=== PATIENT | female | born 1945 | race Caucasian/White ===

== ENCOUNTER 2018-10-04 16:10 | Inpatient (IN) | payer OTHER, MEDICARE ==
[~2018-10-04] VITALS: Ht 170.2 cm; Wt 68.0 kg
--- NOTE | 2018-10-04 16:14 | Emergency Room Report ---
History of Present Illness Present Illness HPI Patient is a 73-year-old female who presented after increased vomiting from nursing facility. Patient reportedly had multiple episodes of nonbloody emesis. Patient reports being a smoker. She has prior history of dementia. History is markedly limited by poor historian.Patient denies any fever.She denies any significant abdominal pain. Allergies: Coded Allergies: No Known Allergies (Unverified , 10/04/18) Patient History Past Medical History: see triage record Reviewed Nursing Documentation: PMH: Agreed; PSxH: Agreed Review of Systems All Other Systems: negative except mentioned in HPI Physical Exam Sp02 EP Interpretation: reviewed, normal General Appearance: normal inspection, well appearing, no apparent distress, alert, GCS 15 Head: atraumatic ENT: normal ENT inspection, hearing grossly normal, normal voice Neck: normal inspection, full range of motion, supple, no bony tend Respiratory: normal inspection, lungs clear, normal breath sounds, no respiratory distress, no retraction, no wheezing Cardiovascular #1: regular rate, rhythm, no edema Gastrointestinal: normal inspection, normal bowel sounds, non tender, soft, no guarding, no hernia Genitourinary: no CVA tenderness Musculoskeletal: normal inspection, back normal, normal range of motion Neurologic: normal inspection, alert, oriented x3, responsive, supervisor roving III-XII nml as tested, speech normal Psychiatric: normal inspection, judgement/insight normal, mood/affect normal Skin: normal inspection, normal color, no rash Procedures Incision and Drainage Incision and Drainage : Consent: Written Site: left labia Blade Size: 15 I & D Procedure: betadine prep, sterile drapes applied Wound Location: pelvis Wound Length (cm): 0 Wound Explored: clean Anesthesia: Lidocaine w/ Epi Volume Anesthetic (ccs): 3 Patient Tolerated: Well Complications: None Medical Decision Making Diagnostic Impression: Primary Impression: Vomiting Additional Impressions: Hyponatremia CHF (congestive heart failure) Pacemaker Dementia Bartholin cyst ER Course Patient presented for vomiting. Differential diagnosis include was not limited to bowel obstruction, urinary tract infection, gastroenteritis, among others. Because of complexity of patient's case laboratory testing and imaging studies were ordered. Laboratory testing showed moderate hyponatremia. Patient was started on IV fluids. CT of abdomen and pelvis showed Cardiomegaly as well as left bartholins cyst without evident appendicitis or obstruction. Patient underwent attempt at incision and drainage without any purulent drainage. Patient was discussed with Dr. Weeks for inpatient management. Labs Test 10/04/18 16:30 White Blood Count 6.1 K/UL (4.8-10.8) Red Blood Count 4.36 M/UL (4.20-5.40) Hemoglobin 13.9 G/DL (12.0-16.0) Hematocrit 37.9 % (37.0-47.0) Mean Corpuscular Volume 87 FL (80-99) Mean Corpuscular Hemoglobin 31.9 PG (27.0-31.0) Mean Corpuscular Hemoglobin Concent 36.6 G/DL (32.0-36.0) Red Cell Distribution Width 10.6 % (11.6-14.8) Platelet Count 205 K/UL (150-450) Mean Platelet Volume 5.0 FL (6.5-10.1) Neutrophils (%) (Auto) 80.1 % (45.0-75.0) Lymphocytes (%) (Auto) 10.9 % (20.0-45.0) Monocytes (%) (Auto) 7.0 % (1.0-10.0) Eosinophils (%) (Auto) 1.0 % (0.0-3.0) Basophils (%) (Auto) 1.0 % (0.0-2.0) Prothrombin Time 11.4 SEC (9.30-11.50) Prothromb Time International Ratio 1.1 (0.9-1.1) Activated Partial Thromboplast Time 25 SEC (23-33) Urine Color Yellow Urine Appearance Clear Urine pH 7 (4.5-8.0) Urine Specific [place] 1.010 (1.005-1.035) Urine Protein 1+ (NEGATIVE) Urine Glucose (UA) Negative (NEGATIVE) Urine Ketones Negative (NEGATIVE) Urine Blood 3+ (NEGATIVE) Urine Nitrite Negative (NEGATIVE) Urine Bilirubin Negative (NEGATIVE) Urine Urobilinogen Normal MG/DL (0.0-1.0) Urine Leukocyte Esterase 1+ (NEGATIVE) Urine RBC 2-4 /HPF (0 - 2) Urine WBC 0-2 /HPF (0 - 2) Urine Squamous Epithelial Cells Moderate /LPF (NONE/OCC) Urine Bacteria Few /HPF (NONE) Sodium Level 130 MMOL/L (136-145) Potassium Level 4.8 MMOL/L (3.5-5.1) Chloride Level 96 MMOL/L (98-107) Carbon Dioxide Level 25 MMOL/L (21-32) Anion Gap 9 mmol/L (5-15) Blood Urea Nitrogen 14 mg/dL (7-18) Creatinine 0.9 MG/DL (0.55-1.30) Estimat Glomerular Filtration Rate mL/min (>60) Glucose Level 116 MG/DL (74-106) Calcium Level 8.7 MG/DL (8.5-10.1) Total Bilirubin 0.4 MG/DL (0.2-1.0) Aspartate Amino Transf (AST/SGOT) 26 U/L (15-37) Alanine Aminotransferase (ALT/SGPT) 19 U/L (12-78) Alkaline Phosphatase 70 U/L (46-116) Troponin I 0.029 ng/mL (0.000-0.056) Total Protein 7.3 G/DL (6.4-8.2) Albumin 3.3 G/DL (3.4-5.0) Globulin 4.0 g/dL Albumin/Globulin Ratio 0.8 (1.0-2.7) Lipase 177 U/L (73-393) Status: improved Disposition: ADMITTED INPATIENT Condition: Giorgio Ware MD October 04, 2018 16:14
[2018-10-04] MEDS ORDERED: Isovue-300 100ml vial INJ PRN (16:15)
[2018-10-04 16:25] VITALS: BP 101/65
--- NOTE | 2018-10-04 16:25 | NUR ---
ED Nurse Note: Patient brought in to ER by ambulance from [facility] due to vomiting x2 this morning. pt aao x1-2, in pleasant mood, cooperative. skin clean and intact but pale. no vomiting at this moment. pt denied abdominal pain. abdoman soft and non distended. pt able to move and change position in bed. pt changed in to gown and put conveyor monitor on.
--- NOTE | 2018-10-04 16:30 | NUR ---
ED Nurse Note: Rash noted on both inner buttocks. picture taken and uploaded.
[2018-10-04 16:45] LABS: APPEARANCE,URINE CLEAR; BILIRUBIN, URINE NEGATIVE (NEGATIVE); GLUCOSE, URINE (UA) NEGATIVE (NEGATIVE); HEMATOCRIT 37.9 % (37.0-47.0); HEMOGLOBIN 13.9 G/DL (12.0-16.0); KETONES,URINE NEGATIVE (NEGATIVE); LEUKOCYTE ESTERASE ,URINE 1+ (NEGATIVE); LYMPHOCYTES % (AUTO) 10.9 % (20.0-45.0); MEAN CORPUSCULAR VOLUME 87 FL (80-99); NEUTROPHILS % (AUTO) 80.1 % (45.0-75.0); NITRITE,URINE NEGATIVE (NEGATIVE); PH,URINE 7 (4.5-8.0); PLATELET COUNT 205 K/UL (150-450); PROTEIN,URINE 1+ (NEGATIVE); RED BLOOD COUNT 4.36 M/UL (4.20-5.40); RED CELL DISTRIBUTION WIDTH 10.6 % (11.6-14.8); UROBILINOGEN,URINE NORMAL MG/DL (0.0-1.0); WHITE BLOOD COUNT 6.1 K/UL (4.8-10.8)
[2018-10-04 16:49] LABS: COLOR,URINE YELLOW
[2018-10-04 16:55] LABS: ANION GAP 9 mmol/L (5-15); BLOOD UREA NITROGEN 14 mg/dL (7-18); CALCIUM 8.7 MG/DL (8.5-10.1); CARBON DIOXIDE 25 MMOL/L (21-32); CHLORIDE 96 MMOL/L (98-107); CREATININE 0.9 MG/DL (0.55-1.30); POTASSIUM 4.8 MMOL/L (3.5-5.1); SODIUM 130 MMOL/L (136-145)
[2018-10-04 16:59] LABS: ALANINE AMINOTRANSFERASE 19 U/L (12-78); ALBUMIN 3.3 G/DL (3.4-5.0); ALBUMIN/GLOBULIN RATIO 0.8 (1.0-2.7); ALKALINE PHOSPHATASE 70 U/L (46-116); ASPARTATE AMINO TRANSFERASE 26 U/L (15-37); BILIRUBIN,TOTAL 0.4 MG/DL (0.2-1.0); INR 1.1 (0.9-1.1)
[2018-10-04 17:39] VITALS: BP 107/50
--- NOTE | 2018-10-04 19:04 | NUR ---
HAND-OFF: Report given to HAMMAD Coreas.
[2018-10-04] MEDS ORDERED: Lidocaine 1% 10mg/ml/Epi 0.005mg/ml 30ml vial INJ ONE (19:30)
[2018-10-04 19:45] VITALS: BP 102/68
[2018-10-04] MEDS ORDERED: Bacitracin Oint UD TOPIC ONE (19:45)
[2018-10-04] MEDS ORDERED: NEURONTIN100 MG ORAL (19:58)
[2018-10-04] MEDS ORDERED: TEGRETOL200 MG PO (19:58)
[2018-10-04] MEDS ORDERED: LEVOTHYROXINE100 MC1 PO (19:58)
[2018-10-04] MEDS ORDERED: XARELTO10 MG ORAL (19:58)
[2018-10-04] MEDS ORDERED: METOPROLOL SUCC25 MG ORAL (19:58)
[2018-10-04] MEDS ORDERED: CRANBERRY400 MG PO (19:58)
--- NOTE | 2018-10-04 20:10 | NUR ---
ER Nurse Note: Pt a&ox2, VSS, no signs of distress. Pt calm and comfortable. Skin intact; redness in biateral groin. I&D completed per ERMD; site cleaned and applied bactriacin with gauze. SLIV RT arm; patent and kerlix. Will endorse care to recieving nurse for continutiy of care.
--- NOTE | 2018-10-04 20:25 | NUR ---
ER Nurse Note: Called for report and was put on hold for over 5 mins. Will call again.
--- NOTE | 2018-10-04 20:40 | NUR ---
ER Nurse Note: Report given to HAMMAD Damon for continuity of care. Pt stable and left with all belongings.
--- NOTE | 2018-10-04 20:45 | NUR ---
NURSE NOTES: Received report from Mitesh Foote RN from ED regarding patient's transfer to TELE floor. Belongings checked and noted, head to toe assessment initiated with noted skin issue (see WCP). Patient assisted transfer from [facility] to bed by staff. AAO X2 with episodes of confusion d/t history of dementia. Kept clean, dry, and comfortable in bed. Placed on cardiac monitoring per protocol. Noted left chest PM ([place]) and pacing well. On RA with no S/S of resp distress or SOB, saturating at 95-96%. Safety and seizure precaution in place; siderails X2 up and padded, call light within reach, bed in lowest position, brakes and alarm on at all times, Suction at bedside and bed free from clutter. Needs and wants anticipated and attended. Will continue plan of care and monitor for any changes noted.
[2018-10-04 21:00] VITALS: BP 111/79
--- NOTE | 2018-10-04 22:10 | NUR ---
NURSE NOTES: Called and left message for Tariq Woodard MD regarding admit orders. Awaiting call back
--- NOTE | 2018-10-04 22:30 | NUR ---
NURSE NOTES: Received call back from primary MD. New orders carried out. Will continue to monitor
--- NOTE | 2018-10-04 22:40 | NUR ---
NURSE NOTES: 1 on 1 sitter as needed if patient tries to get out of bed, per primary MD.
[2018-10-04] MEDS ORDERED: Acetaminophen 500mg (ES) tab ORAL PRN (22:45)
[2018-10-05] VITALS: BP 94/59
--- NOTE | 2018-10-05 07:15 | NUR ---
NURSE NOTES: Received report from Nelson/RN, Patient is awake, resting on bed, No acute distress/SOB noted. IV running @ 50cc/hr on right forearm. Bed in low position, and locked. Call light within reach. Will continue plan of care.
--- NOTE | 2018-10-05 07:40 | NUR ---
HAND-OFF: Report given to Chance Oconnell RN. Patient in bed with no S/S of distress noted at this time. Endorsed plan of care
[2018-10-05 08:25] VITALS: BP 94/59
[2018-10-05 09:01] LABS: EOSINOPHILS % (AUTO) 2.9 % (0.0-3.0); HEMATOCRIT 36.5 % (37.0-47.0); HEMOGLOBIN 12.6 G/DL (12.0-16.0); LYMPHOCYTES % (AUTO) 14.9 % (20.0-45.0); MEAN CORPUSCULAR VOLUME 91 FL (80-99); MONOCYTES % (AUTO) 11.6 % (1.0-10.0); NEUTROPHILS % (AUTO) 69.6 % (45.0-75.0); PLATELET COUNT 193 K/UL (150-450); RED CELL DISTRIBUTION WIDTH 11.1 % (11.6-14.8); WHITE BLOOD COUNT 5.5 K/UL (4.8-10.8)
[2018-10-05 09:26] LABS: ALANINE AMINOTRANSFERASE 18 U/L (12-78); ALBUMIN 2.9 G/DL (3.4-5.0); ALBUMIN/GLOBULIN RATIO 0.9 (1.0-2.7); ALKALINE PHOSPHATASE 59 U/L (46-116); ANION GAP 9 mmol/L (5-15); ASPARTATE AMINO TRANSFERASE 24 U/L (15-37); BILIRUBIN,TOTAL 0.5 MG/DL (0.2-1.0); BLOOD UREA NITROGEN 11 mg/dL (7-18); CALCIUM 8.4 MG/DL (8.5-10.1); CARBON DIOXIDE 23 MMOL/L (21-32); CHLORIDE 102 MMOL/L (98-107); CREATININE 0.8 MG/DL (0.55-1.30); POTASSIUM 3.9 MMOL/L (3.5-5.1); SODIUM 134 MMOL/L (136-145)
--- NOTE | 2018-10-05 10:50 | Diagnostic Imaging Report ---
Indication: Abdominal pain Technique: Continuous helical transaxial imaging of the abdomen and pelvis was obtained from the lung bases to the pubic symphysis during intravenous contrast administration. Coronal 2-D reformats were also obtained. Study obtained in a Siemens sensation [address] Automatic Exposure Control was utilized. Total Dose length Product (DLP): 892.[address] Dose Index Volume (CTDIvol): 17.25 mGy Comparison: None Findings: Mild reticulation at the lung bases likely atelectasis. Pacemaker is present. There is generalized cardiomegaly. The aorta and other arterial structures show mild calcification. Gallbladder is not seen. The spleen and liver are unremarkable. The pancreas, kidneys and adrenal glands are unremarkable. There is no hydronephrosis. An IVC filter is present. Bowel gas pattern is nonobstructive. The appendix is not visualized. There is no free fluid identified. The left ovary appears somewhat prominent. The right ovary is not seen. There is no free fluid or free air. There is a hyperdense round focus in the left posterior vaginal region measuring 2.5 cm which may be a Bartholin's gland. IMPRESSION: No acute findings identified. Prominent left ovary for age. Consider correlation with endovaginal ultrasound. Suspected left Bartholin's gland cyst. Pacemaker Atherosclerotic disease IVC filter. [facility] has communicated the preliminary results to the Emergency Department. Their findings are largely concordant with this report. The CT scanner at [facility] is accredited by the [employer] and the scans are performed using dose optimization techniques as appropriate to a performed exam including Automatic Exposure control.
--- NOTE | 2018-10-05 10:51 | GI Initial Consult Note ---
History of Present Illness General Date patient seen: October 05, 2018 Time patient seen: 10:46 Reason for Hospitalization: Vomiting Referring physician: JUDY BLACKWELL Reason for Consultation: Vomiting, abdominal pain Present Illness HPI Patient is a 73-year-old female who presented after increased vomiting from nursing facility. Patient reportedly had multiple episodes of nonbloody emesis. Patient reports being a smoker. She has prior history of dementia. History is markedly limited by poor historian.Patient denies any fever.She denies any significant abdominal pain. GI consulted for reported abdominal pain and nausea. ROS limited, patient with history of dementia unable to provide any significant history. The patient believes she is . She denies any abdominal pain or vomiting at this time. She reported that she had some vomiting last night. Denies any hematemesis or coffee-ground. Patient unable to recall any past history of endoscopic or colonoscopy at this time. Labs reviewed; no anemia, no leukocytosis, no transaminitis. Home Meds Reported Medications Cranberry (CRANBERRY) 400 Mg Capsule, 450 MG PO, CAP 10/04/18 Carbamazepine (TEGRETOL*) 200 Mg Tablet, 600 MG PO DAILY, TAB 10/04/18 Metoprolol Succinate* (METOPROLOL SUCCINATE*) 25 Mg Tab.er.24h, 25 MG ORAL DAILY , TAB 10/04/18 Rivaroxaban (XARELTO*) 10 Mg Tablet, 15 MG ORAL DAILY, #30 TAB 0 Refills 10/04/18 Gabapentin* (NEURONTIN*) 100 Mg Capsule, 100 MG ORAL THREE TIMES A DAY, #15 CAP 0 Refills 10/04/18 Levothyroxine Sodium* (LEVOTHYROXINE SODIUM*) 100 Mcg Vial, 50 MCG IV DAILY, VIAL 10/04/18 Med list reviewed/reconciled: Yes Allergies: Coded Allergies: No Known Allergies (Unverified , 10/04/18) Patient History Limited by: medical condition History Provided By: Patient, Medical Record PMH Narrative Past Medical History: see triage record Reviewed Nursing Documentation: PMH: Agreed; PSxH: Agreed ER ROS - General Review of Systems All Other Systems: negative except mentioned in HPI Social History: Denies: smoking, alcohol use, drug use, other Physical Exam Vital Signs Date Time Temp Pulse Resp B/P (MAP) Pulse Ox O2 Delivery O2 Flow Rate FiO2 10/04/18 16:11 97.3 82 14 96 Room Air 5/19/19 16:25 101/65 Sp02 EP Interpretation: reviewed, normal Labs Laboratory Tests Test 10/04/18 16:30 10/05/18 08:26 White Blood Count 6.1 K/UL (4.8-10.8) 5.5 K/UL (4.8-10.8) Red Blood Count 4.36 M/UL (4.20-5.40) 4.00 M/UL (4.20-5.40) L Hemoglobin 13.9 G/DL (12.0-16.0) 12.6 G/DL (12.0-16.0) Hematocrit 37.9 % (37.0-47.0) 36.5 % (37.0-47.0) L Mean Corpuscular Volume 87 FL (80-99) 91 FL (80-99) Mean Corpuscular Hemoglobin 31.9 PG (27.0-31.0) H 31.5 PG (27.0-31.0) H Mean Corpuscular Hemoglobin Concent 36.6 G/DL (32.0-36.0) H 34.5 G/DL (32.0-36.0) Red Cell Distribution Width 10.6 % (11.6-14.8) L 11.1 % (11.6-14.8) L Platelet Count 205 K/UL (150-450) 193 K/UL (150-450) Mean Platelet Volume 5.0 FL (6.5-10.1) L 5.7 FL (6.5-10.1) L Neutrophils (%) (Auto) 80.1 % (45.0-75.0) H 69.6 % (45.0-75.0) Lymphocytes (%) (Auto) 10.9 % (20.0-45.0) L 14.9 % (20.0-45.0) L Monocytes (%) (Auto) 7.0 % (1.0-10.0) 11.6 % (1.0-10.0) H Eosinophils (%) (Auto) 1.0 % (0.0-3.0) 2.9 % (0.0-3.0) Basophils (%) (Auto) 1.0 % (0.0-2.0) 1.0 % (0.0-2.0) Prothrombin Time 11.4 SEC (9.30-11.50) Prothromb Time International Ratio 1.1 (0.9-1.1) Activated Partial Thromboplast Time 25 SEC (23-33) Urine Color Yellow Urine Appearance Clear Urine pH 7 (4.5-8.0) Urine Specific [place] 1.010 (1.005-1.035) Urine Protein 1+ (NEGATIVE) H Urine Glucose (UA) Negative (NEGATIVE) Urine Ketones Negative (NEGATIVE) Urine Blood 3+ (NEGATIVE) H Urine Nitrite Negative (NEGATIVE) Urine Bilirubin Negative (NEGATIVE) Urine Urobilinogen Normal MG/DL (0.0-1.0) Urine Leukocyte Esterase 1+ (NEGATIVE) H Urine RBC 2-4 /HPF (0 - 2) H Urine WBC 0-2 /HPF (0 - 2) Urine Squamous Epithelial Cells Moderate /LPF (NONE/OCC) H Urine Bacteria Few /HPF (NONE) Sodium Level 130 MMOL/L (136-145) L 134 MMOL/L (136-145) L Potassium Level 4.8 MMOL/L (3.5-5.1) 3.9 MMOL/L (3.5-5.1) Chloride Level 96 MMOL/L (98-107) L 102 MMOL/L (98-107) Carbon Dioxide Level 25 MMOL/L (21-32) 23 MMOL/L (21-32) Anion Gap 9 mmol/L (5-15) 9 mmol/L (5-15) Blood Urea Nitrogen 14 mg/dL (7-18) 11 mg/dL (7-18) Creatinine 0.9 MG/DL (0.55-1.30) 0.8 MG/DL (0.55-1.30) Estimat Glomerular Filtration Rate mL/min (>60) mL/min (>60) Glucose Level 116 MG/DL (74-106) H 89 MG/DL (74-106) Calcium Level 8.7 MG/DL (8.5-10.1) 8.4 MG/DL (8.5-10.1) L Total Bilirubin 0.4 MG/DL (0.2-1.0) 0.5 MG/DL (0.2-1.0) Aspartate Amino Transf (AST/SGOT) 26 U/L (15-37) 24 U/L (15-37) Alanine Aminotransferase (ALT/SGPT) 19 U/L (12-78) 18 U/L (12-78) Alkaline Phosphatase 70 U/L (46-116) 59 U/L (46-116) Troponin I 0.029 ng/mL (0.000-0.056) Total Protein 7.3 G/DL (6.4-8.2) 6.3 G/DL (6.4-8.2) L Albumin 3.3 G/DL (3.4-5.0) L 2.9 G/DL (3.4-5.0) L Globulin 4.0 g/dL 3.4 g/dL Albumin/Globulin Ratio 0.8 (1.0-2.7) L 0.9 (1.0-2.7) L Lipase 177 U/L (73-393) General Appearance: well appearing, no apparent distress, alert Head: normocephalic EENT: PERRL/EOMI, normal ENT inspection Neck: supple Respiratory: normal breath sounds, no respiratory distress Cardiovascular: normal rate Gastrointestinal: normal inspection, non tender, soft, normal bowel sounds, non -distended Rectal: deferred Genitourinary: no CVA tenderness Musculoskeletal: normal inspection, back normal Neurologic: normal inspection, alert, oriented x3, responsive Psychiatric: normal inspection, judgement/insight normal, memory normal Skin: normal inspection, normal color, no rash, warm/dry, palpation normal, well hydrated Lymphatic: normal inspection, no adenopathy Current Medications Current Medications Medications (Trade) Dose Ordered Sig/Charles Route PRN Reason Start Time Stop Time Status Last Admin Dose Admin Acetaminophen (Tylenol) 500 mg Q4H PRN ORAL Mild Pain/Temp > 100.5 10/04/18 22:45 11/03/18 22:44 Ondansetron HCl (Zofran) 4 mg Q6H PRN IVP Nausea & Vomiting 10/04/18 22:45 11/03/18 22:44 Sodium Chloride 1,000 ml @ 50 mls/hr Q20H IV 10/04/18 22:30 11/03/18 22:29 10/04/18 23:18 GI: Plan Problems: (1) Vomiting (2) Pacemaker (3) Hyponatremia (4) CHF (congestive heart failure) (5) Dementia (6) Dehydration Plan neg CT Symptomatic treatment at this time Advance diet as tolerated Zofran as needed, Reglan for persistent vomiting PPI Electrolyte correction GI procedures only if emergent Discussed with Dr. Baez. Thank you for this patient referral, we will follow. The patient was seen and examined at bedside and all new and available data was reviewed in the patients chart. I agree with the above findings, impression and plan. (Patient seen earlier today. Signature stamp does not reflect patient encounter time.). - MD Sofia LoydPage HospitalJakob CONTRACT WRITER October 05, 2018 10:51
[2018-10-05 12:00] VITALS: BP 103/57
--- NOTE | 2018-10-05 12:05 | Cardiac Electrophysiology PN ---
Subjective Subjective [id number] Objective Last 24 Hour Vital Signs Date Time Temp Pulse Resp B/P (MAP) Pulse Ox O2 Delivery O2 Flow Rate FiO2 10/05/18 08:25 97.0 98 19 94/59 (71) 98 10/05/18 04:00 77 10/05/18 00:00 97.0 98 19 94/59 (71) 98 10/05/18 00:00 90 10/04/18 21:12 Room Air 10/04/18 21:00 96.9 93 18 111/79 (90) 98 10/04/18 21:00 89 10/04/18 20:40 97.5 88 16 102/68 100 Room Air 10/04/18 19:45 97.5 88 16 102/68 100 Room Air 10/04/18 17:39 97.7 80 17 107/50 100 Room Air 10/04/18 16:25 97.7 71 17 101/65 98 Room Air 10/04/18 16:25 71 14 Room Air 10/04/18 16:11 97.3 82 14 96 Room Air Intake and Output 10/04/18 10/05/18 19:00 07:00 Intake Total 500 ml 390 ml Balance 500 ml 390 ml Intake Oral 0 ml 100 ml IV Total 500 ml 290 ml # Voids 1 2 Laboratory Tests Test 10/04/18 16:30 10/05/18 08:26 White Blood Count 6.1 K/UL (4.8-10.8) 5.5 K/UL (4.8-10.8) Red Blood Count 4.36 M/UL (4.20-5.40) 4.00 M/UL (4.20-5.40) L Hemoglobin 13.9 G/DL (12.0-16.0) 12.6 G/DL (12.0-16.0) Hematocrit 37.9 % (37.0-47.0) 36.5 % (37.0-47.0) L Mean Corpuscular Volume 87 FL (80-99) 91 FL (80-99) Mean Corpuscular Hemoglobin 31.9 PG (27.0-31.0) H 31.5 PG (27.0-31.0) H Mean Corpuscular Hemoglobin Concent 36.6 G/DL (32.0-36.0) H 34.5 G/DL (32.0-36.0) Red Cell Distribution Width 10.6 % (11.6-14.8) L 11.1 % (11.6-14.8) L Platelet Count 205 K/UL (150-450) 193 K/UL (150-450) Mean Platelet Volume 5.0 FL (6.5-10.1) L 5.7 FL (6.5-10.1) L Neutrophils (%) (Auto) 80.1 % (45.0-75.0) H 69.6 % (45.0-75.0) Lymphocytes (%) (Auto) 10.9 % (20.0-45.0) L 14.9 % (20.0-45.0) L Monocytes (%) (Auto) 7.0 % (1.0-10.0) 11.6 % (1.0-10.0) H Eosinophils (%) (Auto) 1.0 % (0.0-3.0) 2.9 % (0.0-3.0) Basophils (%) (Auto) 1.0 % (0.0-2.0) 1.0 % (0.0-2.0) Prothrombin Time 11.4 SEC (9.30-11.50) Prothromb Time International Ratio 1.1 (0.9-1.1) Activated Partial Thromboplast Time 25 SEC (23-33) Urine Color Yellow Urine Appearance Clear Urine pH 7 (4.5-8.0) Urine Specific [place] 1.010 (1.005-1.035) Urine Protein 1+ (NEGATIVE) H Urine Glucose (UA) Negative (NEGATIVE) Urine Ketones Negative (NEGATIVE) Urine Blood 3+ (NEGATIVE) H Urine Nitrite Negative (NEGATIVE) Urine Bilirubin Negative (NEGATIVE) Urine Urobilinogen Normal MG/DL (0.0-1.0) Urine Leukocyte Esterase 1+ (NEGATIVE) H Urine RBC 2-4 /HPF (0 - 2) H Urine WBC 0-2 /HPF (0 - 2) Urine Squamous Epithelial Cells Moderate /LPF (NONE/OCC) H Urine Bacteria Few /HPF (NONE) Sodium Level 130 MMOL/L (136-145) L 134 MMOL/L (136-145) L Potassium Level 4.8 MMOL/L (3.5-5.1) 3.9 MMOL/L (3.5-5.1) Chloride Level 96 MMOL/L (98-107) L 102 MMOL/L (98-107) Carbon Dioxide Level 25 MMOL/L (21-32) 23 MMOL/L (21-32) Anion Gap 9 mmol/L (5-15) 9 mmol/L (5-15) Blood Urea Nitrogen 14 mg/dL (7-18) 11 mg/dL (7-18) Creatinine 0.9 MG/DL (0.55-1.30) 0.8 MG/DL (0.55-1.30) Estimat Glomerular Filtration Rate mL/min (>60) mL/min (>60) Glucose Level 116 MG/DL (74-106) H 89 MG/DL (74-106) Calcium Level 8.7 MG/DL (8.5-10.1) 8.4 MG/DL (8.5-10.1) L Total Bilirubin 0.4 MG/DL (0.2-1.0) 0.5 MG/DL (0.2-1.0) Aspartate Amino Transf (AST/SGOT) 26 U/L (15-37) 24 U/L (15-37) Alanine Aminotransferase (ALT/SGPT) 19 U/L (12-78) 18 U/L (12-78) Alkaline Phosphatase 70 U/L (46-116) 59 U/L (46-116) Troponin I 0.029 ng/mL (0.000-0.056) Total Protein 7.3 G/DL (6.4-8.2) 6.3 G/DL (6.4-8.2) L Albumin 3.3 G/DL (3.4-5.0) L 2.9 G/DL (3.4-5.0) L Globulin 4.0 g/dL 3.4 g/dL Albumin/Globulin Ratio 0.8 (1.0-2.7) L 0.9 (1.0-2.7) L Lipase 177 U/L (73-393) Tomás Negrete MD October 05, 2018 12:05
--- NOTE | 2018-10-05 13:32 | NUR ---
CASE MANAGEMENT:REVIEW 73 YR OLD FEMALE BIBA FROM [facility] CC: VOMITING SI: ABDOMINAL PAIN. VOMITING. CHF. HYPONATREMIA 97.3 82 14 107/68 96% ON RA NA-130 GLUCOSE+116 IS: 500CC NS BOLUS IV ZOFRAN CT ABDOMEN : TO TELEMETRY UNIT DCP: RETURN TO [facility]
--- NOTE | 2018-10-05 13:57 | Consultation ---
History of Present Illness General Chief Complaint: Vomiting Referring physician: JUDY WOODARD Reason for Consultation: Vomiting, abdominal pain Present Illness Allergies: Coded Allergies: No Known Allergies (Unverified , 10/04/18) Medication History Scheduled Carbamazepine (Tegretol*), 600 MG PO DAILY, (Reported) Gabapentin* (Neurontin*), 100 MG ORAL THREE TIMES A DAY, (Reported) Levothyroxine Sodium* (Levothyroxine Sodium*), 50 MCG IV DAILY, (Reported) Metoprolol Succinate* (Metoprolol Succinate*), 25 MG ORAL DAILY, (Reported) Rivaroxaban (Xarelto*), 15 MG ORAL DAILY, (Reported) Miscellaneous Medications Cranberry (Cranberry), 450 MG PO, (Reported) Patient History Healthcare decision maker N Resuscitation status Full Code Advanced Directive on File Physical Exam Last 24 Hour Vital Signs Date Time Temp Pulse Resp B/P (MAP) Pulse Ox O2 Delivery O2 Flow Rate FiO2 10/05/18 08:25 97.0 98 94/59 (71) 98 10/05/18 04:00 77 10/05/18 00:00 97.0 98 94/59 (71) 98 10/05/18 00:00 90 10/04/18 21:12 Room Air 10/04/18 21:00 96.9 93 18 111/79 (90) 98 10/04/18 21:00 89 10/04/18 20:40 97.5 88 16 102/68 100 Room Air 10/04/18 19:45 97.5 88 16 102/68 100 Room Air 10/04/18 17:39 97.7 80 17 107/50 100 Room Air 10/04/18 16:25 97.7 71 17 101/65 98 Room Air 10/04/18 16:25 71 14 Room Air 10/04/18 16:11 97.3 82 14 96 Room Air Intake and Output 10/04/18 10/05/18 19:00 07:00 Intake Total 500 ml 390 ml Balance 500 ml 390 ml Intake Oral 0 ml 100 ml IV Total 500 ml 290 ml # Voids 1 2 Laboratory Tests Test 10/04/18 16:30 10/05/18 08:26 White Blood Count 6.1 K/UL (4.8-10.8) 5.5 K/UL (4.8-10.8) Red Blood Count 4.36 M/UL (4.20-5.40) 4.00 M/UL (4.20-5.40) L Hemoglobin 13.9 G/DL (12.0-16.0) 12.6 G/DL (12.0-16.0) Hematocrit 37.9 % (37.0-47.0) 36.5 % (37.0-47.0) L Mean Corpuscular Volume 87 FL (80-99) 91 FL (80-99) Mean Corpuscular Hemoglobin 31.9 PG (27.0-31.0) H 31.5 PG (27.0-31.0) H Mean Corpuscular Hemoglobin Concent 36.6 G/DL (32.0-36.0) H 34.5 G/DL (32.0-36.0) Red Cell Distribution Width 10.6 % (11.6-14.8) L 11.1 % (11.6-14.8) L Platelet Count 205 K/UL (150-450) 193 K/UL (150-450) Mean Platelet Volume 5.0 FL (6.5-10.1) L 5.7 FL (6.5-10.1) L Neutrophils (%) (Auto) 80.1 % (45.0-75.0) H 69.6 % (45.0-75.0) Lymphocytes (%) (Auto) 10.9 % (20.0-45.0) L 14.9 % (20.0-45.0) L Monocytes (%) (Auto) 7.0 % (1.0-10.0) 11.6 % (1.0-10.0) H Eosinophils (%) (Auto) 1.0 % (0.0-3.0) 2.9 % (0.0-3.0) Basophils (%) (Auto) 1.0 % (0.0-2.0) 1.0 % (0.0-2.0) Prothrombin Time 11.4 SEC (9.30-11.50) Prothromb Time International Ratio 1.1 (0.9-1.1) Activated Partial Thromboplast Time 25 SEC (23-33) Urine Color Yellow Urine Appearance Clear Urine pH 7 (4.5-8.0) Urine Specific Scammon 1.010 (1.005-1.035) Urine Protein 1+ (NEGATIVE) H Urine Glucose (UA) Negative (NEGATIVE) Urine Ketones Negative (NEGATIVE) Urine Blood 3+ (NEGATIVE) H Urine Nitrite Negative (NEGATIVE) Urine Bilirubin Negative (NEGATIVE) Urine Urobilinogen Normal MG/DL (0.0-1.0) Urine Leukocyte Esterase 1+ (NEGATIVE) H Urine RBC 2-4 /HPF (0 - 2) H Urine WBC 0-2 /HPF (0 - 2) Urine Squamous Epithelial Cells Moderate /LPF (NONE/OCC) H Urine Bacteria Few /HPF (NONE) Sodium Level 130 MMOL/L (136-145) L 134 MMOL/L (136-145) L Potassium Level 4.8 MMOL/L (3.5-5.1) 3.9 MMOL/L (3.5-5.1) Chloride Level 96 MMOL/L (98-107) L 102 MMOL/L (98-107) Carbon Dioxide Level 25 MMOL/L (21-32) 23 MMOL/L (21-32) Anion Gap 9 mmol/L (5-15) 9 mmol/L (5-15) Blood Urea Nitrogen 14 mg/dL (7-18) 11 mg/dL (7-18) Creatinine 0.9 MG/DL (0.55-1.30) 0.8 MG/DL (0.55-1.30) Estimat Glomerular Filtration Rate mL/min (>60) mL/min (>60) Glucose Level 116 MG/DL (74-106) H 89 MG/DL (74-106) Calcium Level 8.7 MG/DL (8.5-10.1) 8.4 MG/DL (8.5-10.1) L Total Bilirubin 0.4 MG/DL (0.2-1.0) 0.5 MG/DL (0.2-1.0) Aspartate Amino Transf (AST/SGOT) 26 U/L (15-37) 24 U/L (15-37) Alanine Aminotransferase (ALT/SGPT) 19 U/L (12-78) 18 U/L (12-78) Alkaline Phosphatase 70 U/L (46-116) 59 U/L (46-116) Troponin I 0.029 ng/mL (0.000-0.056) Total Protein 7.3 G/DL (6.4-8.2) 6.3 G/DL (6.4-8.2) L Albumin 3.3 G/DL (3.4-5.0) L 2.9 G/DL (3.4-5.0) L Globulin 4.0 g/dL 3.4 g/dL Albumin/Globulin Ratio 0.8 (1.0-2.7) L 0.9 (1.0-2.7) L Lipase 177 U/L (73-393) Height (Feet): 5 Height (Inches): 7.00 Weight (Pounds): 152 Medications Current Medications Medications (Trade) Dose Ordered Sig/Charles Route PRN Reason Start Time Stop Time Status Last Admin Dose Admin Acetaminophen (Tylenol) 500 mg Q4H PRN ORAL Mild Pain/Temp > 100.5 10/04/18 22:45 11/03/18 22:44 Ondansetron HCl (Zofran) 4 mg Q6H PRN IVP Nausea & Vomiting 10/04/18 22:45 11/03/18 22:44 Sodium Chloride 1,000 ml @ 50 mls/hr Q20H IV 10/04/18 22:30 11/03/18 22:29 10/04/18 23:18 Assessment/Plan Assessment/Plan: Hematology Consultation RFC: IVC Filter, and gi bleed REQ MD: Judy Woodard DOS: 10/05/18 ID Patient is a 73-year-old female who presented after increased vomiting from nursing facility. Patient reportedly had multiple episodes of nonbloody emesis. Patient reports being a smoker. She has prior history of dementia. History is markedly limited by poor historian.Patient denies any fever.She denies any significant abdominal pain. GI consulted for reported abdominal pain and nausea. ROS limited, patient with history of dementia unable to provide any significant history. The patient believes she is . She denies any abdominal pain or vomiting at this time. She reported that she had some vomiting last night. Denies any hematemesis or coffee-ground. Patient unable to recall any past history of endoscopic or colonoscopy at this time. Labs reviewed; no anemia, no leukocytosis, no transaminitis. She was noted to have potential gi bleeding and cards consulted as well Home Meds Reported Medications Cranberry (CRANBERRY) 400 Mg Capsule, 450 MG PO, CAP 10/04/18 Carbamazepine (TEGRETOL*) 200 Mg Tablet, 600 MG PO DAILY, TAB 10/04/18 Metoprolol Succinate* (METOPROLOL SUCCINATE*) 25 Mg Tab.er.24h, 25 MG ORAL DAILY , TAB 10/04/18 Rivaroxaban (XARELTO*) 10 Mg Tablet, 15 MG ORAL DAILY, #30 TAB 0 Refills 10/04/18 Gabapentin* (NEURONTIN*) 100 Mg Capsule, 100 MG ORAL THREE TIMES A DAY, #15 CAP 0 Refills 10/04/18 Levothyroxine Sodium* (LEVOTHYROXINE SODIUM*) 100 Mcg Vial, 50 MCG IV DAILY, VIAL 10/04/18 Med list reviewed/reconciled: Yes Allergies: Coded Allergies: No Known Allergies (Unverified , 10/04/18) Limited by: medical condition History Provided By: Patient, Medical Record PMH Narrative Past Medical History: see triage record Reviewed Nursing Documentation: PMH: Agreed; PSxH: Agreed Review of Systems: negative except mentioned in HPI Social History: Denies: smoking, alcohol use, drug use, othe PE Vital Signs Date Time Temp Pulse Resp B/P (MAP) Pulse Ox O2 Delivery O2 Flow Rate FiO2 10/04/18 16:11 97.3 82 14 96 Room Air 10/04/18 16:25 101/65 Sp02 EP Interpretation: reviewed, normal Labs Laboratory Tests Test 10/04/18 16:30 10/05/18 08:26 White Blood Count 6.1 K/UL (4.8-10.8) 5.5 K/UL (4.8-10.8) Red Blood Count 4.36 M/UL (4.20-5.40) 4.00 M/UL (4.20-5.40) L Hemoglobin 13.9 G/DL (12.0-16.0) 12.6 G/DL (12.0-16.0) Hematocrit 37.9 % (37.0-47.0) 36.5 % (37.0-47.0) L Mean Corpuscular Volume 87 FL (80-99) 91 FL (80-99) Mean Corpuscular Hemoglobin 31.9 PG (27.0-31.0) H 31.5 PG (27.0-31.0) H Mean Corpuscular Hemoglobin Concent 36.6 G/DL (32.0-36.0) H 34.5 G/DL (32.0-36.0) Red Cell Distribution Width 10.6 % (11.6-14.8) L 11.1 % (11.6-14.8) L Platelet Count 205 K/UL (150-450) 193 K/UL (150-450) Mean Platelet Volume 5.0 FL (6.5-10.1) L 5.7 FL (6.5-10.1) L Neutrophils (%) (Auto) 80.1 % (45.0-75.0) H 69.6 % (45.0-75.0) Lymphocytes (%) (Auto) 10.9 % (20.0-45.0) L 14.9 % (20.0-45.0) L Monocytes (%) (Auto) 7.0 % (1.0-10.0) 11.6 % (1.0-10.0) H Eosinophils (%) (Auto) 1.0 % (0.0-3.0) 2.9 % (0.0-3.0) Basophils (%) (Auto) 1.0 % (0.0-2.0) 1.0 % (0.0-2.0) Prothrombin Time 11.4 SEC (9.30-11.50) Prothromb Time International Ratio 1.1 (0.9-1.1) Activated Partial Thromboplast Time 25 SEC (23-33) Urine Color Yellow Urine Appearance Clear Urine pH 7 (4.5-8.0) Urine Specific Scammon 1.010 (1.005-1.035) Urine Protein 1+ (NEGATIVE) H Urine Glucose (UA) Negative (NEGATIVE) Urine Ketones Negative (NEGATIVE) Urine Blood 3+ (NEGATIVE) H Urine Nitrite Negative (NEGATIVE) Urine Bilirubin Negative (NEGATIVE) Urine Urobilinogen Normal MG/DL (0.0-1.0) Urine Leukocyte Esterase 1+ (NEGATIVE) H Urine RBC 2-4 /HPF (0 - 2) H Urine WBC 0-2 /HPF (0 - 2) Urine Squamous Epithelial Cells Moderate /LPF (NONE/OCC) H Urine Bacteria Few /HPF (NONE) Sodium Level 130 MMOL/L (136-145) L 134 MMOL/L (136-145) L Potassium Level 4.8 MMOL/L (3.5-5.1) 3.9 MMOL/L (3.5-5.1) Chloride Level 96 MMOL/L (98-107) L 102 MMOL/L (98-107) Carbon Dioxide Level 25 MMOL/L (21-32) 23 MMOL/L (21-32) Anion Gap 9 mmol/L (5-15) 9 mmol/L (5-15) Blood Urea Nitrogen 14 mg/dL (7-18) 11 mg/dL (7-18) Creatinine 0.9 MG/DL (0.55-1.30) 0.8 MG/DL (0.55-1.30) Estimat Glomerular Filtration Rate mL/min (>60) mL/min (>60) Glucose Level 116 MG/DL (74-106) H 89 MG/DL (74-106) Calcium Level 8.7 MG/DL (8.5-10.1) 8.4 MG/DL (8.5-10.1) L Total Bilirubin 0.4 MG/DL (0.2-1.0) 0.5 MG/DL (0.2-1.0) Aspartate Amino Transf (AST/SGOT) 26 U/L (15-37) 24 U/L (15-37) Alanine Aminotransferase (ALT/SGPT) 19 U/L (12-78) 18 U/L (12-78) Alkaline Phosphatase 70 U/L (46-116) 59 U/L (46-116) Troponin I 0.029 ng/mL (0.000-0.056) Total Protein 7.3 G/DL (6.4-8.2) 6.3 G/DL (6.4-8.2) L Albumin 3.3 G/DL (3.4-5.0) L 2.9 G/DL (3.4-5.0) L Globulin 4.0 g/dL 3.4 g/dL Albumin/Globulin Ratio 0.8 (1.0-2.7) L 0.9 (1.0-2.7) L Lipase 177 U/L (73-393) General Appearance: well appearing, no apparent distress, alert Head: normocephalic EENT: PERRL/EOMI, normal ENT inspection Neck: supple Respiratory: normal breath sounds, no respiratory distress Cardiovascular: normal rate Gastrointestinal: normal inspection, non tender, soft, normal bowel sounds, non -distended Rectal: deferred Genitourinary: no CVA tenderness Musculoskeletal: normal inspection, back normal Neurologic: normal inspection, alert, oriented x3, responsive Psychiatric: normal inspection, judgement/insight normal, memory normal Skin: normal inspection, normal color, no rash, warm/dry Lymphatic: normal inspection, no adenopathy Current Medications Current Medications Medications (Trade) Dose Ordered Sig/Charles Route PRN Reason Start Time Stop Time Status Last Admin Dose Admin Acetaminophen (Tylenol) 500 mg Q4H PRN ORAL Mild Pain/Temp > 100.5 10/04/18 22:45 11/03/18 22:44 Ondansetron HCl (Zofran) 4 mg Q6H PRN IVP Nausea & Vomiting 10/04/18 22:45 11/03/18 22:44 Sodium Chloride 1,000 ml @ 50 mls/hr Q20H IV 10/04/18 22:30 11/03/18 22:29 10/04/18 23:18 Assessment and Recs: # DVT of the lower legs s/p IVC filter, currently at home was on xarelto --> PT/INR is wnl, continue to monitor if any procedure initiaated --> duplex re-ordered to see if has resolution of dvt --> when ready for dc, consider restart xarelto # Anemia of chronic disease due to underlying chronic medical issues --> Epogen or iron at this time is not particularly indicated --> Medications have been reviewed --> low threshold for gi evaluation in case has occult + # Nasuea and Vomiting as per Gi --> continue to trend, zofran prn basis --> ct was neg # Pacemaker --> appreciate cards recs, interr as needed # Hyponatremia --> as per renal # CHF (congestive heart failure) # Dementia # Dehydration The timing of this note does not necessarily reflect the time of the patient was seen. Greatly appreciate consultation! Guido Hoover MD October 05, 2018 13:57
--- NOTE | 2018-10-05 14:42 | Consultation ---
Consult Note Consult Note I was asked to eval for low Na Patient is a 73-year-old female who presented after increased vomiting from nursing facility. Patient reportedly had multiple episodes of nonbloody emesis. Patient reports being a smoker. She has prior history of dementia. History is markedly limited by poor historian.Patient denies any fever.She denies any significant abdominal pain. Allergies: Coded Allergies: No Known Allergies (Unverified , 10/04/18) interviewed examined data reviewed . Assessment/Plan Hyponatremia: - depletional due to vomiting? improved with Saline - CHF CHF (congestive heart failure) Pacemaker Dementia HypoThyroid check cortisol level 2D echo TSH check slow hydrate monitor lytes per consultants Kerwin Womack MD October 05, 2018 14:42
[2018-10-05 16:00] VITALS: BP 81/59
--- NOTE | 2018-10-05 16:30 | Consultation ---
DATE OF CONSULTATION: 10/05/2018 CARDIAC ELECTROPHYSIOLOGY CONSULTATION CONSULTING PHYSICIAN: Tomás Negrete M.D. REFERRING PHYSICIAN: Jose Woodard M.D. REASON FOR CONSULTATION: Evaluation of patient with atrial fibrillation and pacemaker. HISTORY OF PRESENT ILLNESS: The patient is a 73-year-old lady who was recently at [facility] with history of , atrial fibrillation, history of pacemaker, hypothyroidism, organic brain syndrome, and seizure disorder with last admission at [facility] on September 10, 2018 for a fall. The patient was brought to the emergency room for nonbloody emesis from the ER. At the time of my evaluation, the patient is pleasantly confused. Denies any chest pain or shortness of breath. REVIEW OF SYSTEMS: Negative other than what was mentioned in history of present illness. PAST MEDICAL HISTORY: As mentioned above. FAMILY HISTORY: Noncontributory. SOCIAL HISTORY: She lives in [facility]. Does not smoke or drink alcohol MEDICATIONS: As an outpatient include Xarelto, metoprolol, lisinopril, Levoxyl, gabapentin, and Tegretol. PHYSICAL EXAMINATION: VITAL SIGNS: Blood pressure 94/59, pulse 98, respirations 18, and temperature 97. HEAD AND NECK: No JVD. LUNGS: Clear. CARDIOVASCULAR: S1 and S2 with no gallop. 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 ABDOMEN: Soft. EXTREMITIES: No pitting edema. LABORATORY AND DIAGNOSTIC DATA: His EKG shows atrial fibrillation, rate of 83, nonspecific ST-T wave abnormalities. Laboratory, white count 5.5, hematocrit 12.6, hematocrit 36.5, and platelet count 193. Sodium 134, potassium 3.9, BUN of 11, creatinine 0.8, and glucose of 89. Troponin is negative. Urinalysis showed moderate blood and positive leukocyte esterase. ASSESSMENT AND PLAN: 1. Atrial fibrillation. The rate is currently controlled. Keep off beta-les in view of blood pressure in the 80s and 90s. The patient is off anticoagulation at this time in view of 3+ hematuria, but eventually needs to be resumed. 2. Status post pacemaker. We will try to find the brand of the pacemaker and interrogate it for further evaluation. 3. Hyponatremia. 4. History of falls. 5. Dementia. 6. Seizure. Thank you very much for allowing me to participate in the care of this patient. Please do not hesitate to contact me for any questions regarding my evaluation. Sincerely, Tomás Negrete M.D. DR: Ann JOB#: [id number] CC:
--- NOTE | 2018-10-05 19:28 | NUR ---
NURSE NOTES: Received patient from Andra RN. Patient is awake, talkative, neuro x2-x3. Patient is on room air tolerating well showing no signs of distress. IV site is Right Forearm 20g running Normal Saline at 50cc/hr. Bed is locked, placed in lowest position, side rails up x3, call light within reach. Will continue to monitor.
--- NOTE | 2018-10-05 19:30 | NUR ---
HAND-OFF: Report given to Ambika/HAMMAD, Patient in stable condition. Endorsed plan of care.
[2018-10-05 20:00] VITALS: BP 122/68
[2018-10-06] VITALS: BP 112/62
[2018-10-06 04:00] VITALS: BP 108/59
--- NOTE | 2018-10-06 07:23 | NUR ---
HAND-OFF: Report given to Jaquan CUEVA. Patient is awake and showing no signs of distress.
--- NOTE | 2018-10-06 07:35 | NUR ---
NURSE NOTES: Pt in bed in low position, bed alarm on, pt is able to ambulate to restroom with assist, pt appears to be confused but Ox2 (signs of mental depletion), rails padded, pt denies pain, no s/s of distress or sob.
[2018-10-06 08:00] VITALS: BP 105/88
--- NOTE | 2018-10-06 09:27 | GI Progress Note ---
Assessment/Plan Problems: (1) Dehydration ICD Codes: E86.0 - Dehydration SNOMED: 99369405 (2) Vomiting ICD Codes: R11.10 - Vomiting, unspecified SNOMED: 354922688 (3) Hyponatremia ICD Codes: E87.1 - Hypo-osmolality and hyponatremia SNOMED: 54053234 (4) Dementia ICD Codes: F03.90 - Unspecified dementia without behavioral disturbance SNOMED: 33032030 (5) Bartholin cyst ICD Codes: N75.0 - Cyst of Bartholin's gland SNOMED: 59799390 Status: stable Status Narrative Discussed with Dr. Baez Assessment/Plan neg CT No recurrent vomiting Symptomatic treatment at this time Advance diet as tolerated, mech soft Zofran as needed, Reglan for persistent vomiting PPI Electrolyte correction GI procedures only if emergent Follow-up psych recommendations The patient was seen and examined at bedside and all new and available data was reviewed in the patients chart. I agree with the above findings, impression and plan. (Patient seen earlier today. Signature stamp does not reflect patient encounter time.). - Kvng Baez MD Subjective Gastrointestinal/Abdominal: Reports: no symptoms Subjective Denies any abdominal pain Denies any nausea vomiting or diarrhea Objective Last 24 Hour Vital Signs Date Time Temp Pulse Resp B/P (MAP) Pulse Ox O2 Delivery O2 Flow Rate FiO2 10/06/18 08:00 96.9 85 20 105/88 (94) 97 10/06/18 07:50 Room Air 10/06/18 04:00 98.3 79 16 108/59 (75) 99 10/06/18 03:25 88 10/06/18 00:00 97.6 94 16 112/62 (79) 100 10/05/18 23:37 84 10/05/18 21:00 Room Air 10/05/18 20:00 97.9 88 16 122/68 (86) 98 10/05/18 19:31 77 10/05/18 16:00 69 10/05/18 16:00 97.0 67 21 81/59 (66) 95 10/05/18 12:00 97.2 68 21 103/57 (72) 97 10/05/18 12:00 71 Intake and Output 10/05/18 10/06/18 19:00 07:00 Intake Total 50 ml Balance 50 ml Intake Oral 50 ml # Voids 1 # Bowel Movements 1 Height (Feet): 5 Height (Inches): 7.00 Weight (Pounds): 153 General Appearance: WD/WN, no apparent distress, alert Cardiovascular: normal rate Respiratory/Chest: normal breath sounds, no respiratory distress Abdominal Exam: normal bowel sounds, non tender, soft Extremities: non-tender Olaf Black NP October 06, 2018 09:27
[2018-10-06 10:32] LABS: BASOPHILS % (AUTO) 0.9 % (0.0-2.0); EOSINOPHILS % (AUTO) 2.1 % (0.0-3.0); HEMATOCRIT 38.4 % (37.0-47.0); HEMOGLOBIN 13.3 G/DL (12.0-16.0); LYMPHOCYTES % (AUTO) 15.9 % (20.0-45.0); MEAN CORPUSCULAR VOLUME 91 FL (80-99); MONOCYTES % (AUTO) 9.1 % (1.0-10.0); NEUTROPHILS % (AUTO) 72.1 % (45.0-75.0); PLATELET COUNT 194 K/UL (150-450); RED CELL DISTRIBUTION WIDTH 11.2 % (11.6-14.8); WHITE BLOOD COUNT 5.2 K/UL (4.8-10.8)
[2018-10-06 10:58] LABS: ALANINE AMINOTRANSFERASE 19 U/L (12-78); ALBUMIN 3.1 G/DL (3.4-5.0); ALBUMIN/GLOBULIN RATIO 0.8 (1.0-2.7); ALKALINE PHOSPHATASE 61 U/L (46-116); ANION GAP 7 mmol/L (5-15); ASPARTATE AMINO TRANSFERASE 24 U/L (15-37); BILIRUBIN,TOTAL 0.5 MG/DL (0.2-1.0); BLOOD UREA NITROGEN 8 mg/dL (7-18); CALCIUM 8.7 MG/DL (8.5-10.1); CARBON DIOXIDE 28 MMOL/L (21-32); CHLORIDE 103 MMOL/L (98-107); CHOLESTEROL 233 MG/DL (< 200); CREATININE 0.8 MG/DL (0.55-1.30); GAMMA GLUTAMYL TRANSPEPTIDASE 54 U/L (5-85); HDL CHOLESTEROL 54 MG/DL (40-60); PHOSPHORUS 3.5 MG/DL (2.5-4.9); SODIUM 138 MMOL/L (136-145); TRIGLYCERIDES 71 MG/DL (30-150)
[2018-10-06 11:24] LABS: % IRON SATURATION 38 % (15-50); IRON 78 ug/dL (50-175); TOTAL IRON BINDING CAPACITY 203 ug/dL (250-450)
--- NOTE | 2018-10-06 11:47 | Nephrology Progress Note ---
Assessment/Plan Problem List: (1) Hyponatremia (2) Pacemaker (3) Dehydration (4) Dementia (5) Hypothyroidism Assessment Hyponatremia: resolved - depletional due to vomiting? improved with Saline - CHF CHF (congestive heart failure) Pacemaker Dementia HypoThyroid Plan resume tegretol ?? Sz Ds check cortisol level 2D echo P TSH check DC hydrate monitor lytes per consultants med surg Subjective ROS Limited/Unobtainable: No Objective Objective Last 24 Hour Vital Signs Date Time Temp Pulse Resp B/P (MAP) Pulse Ox O2 Delivery O2 Flow Rate FiO2 10/06/18 08:00 96.9 85 20 105/88 (94) 97 10/06/18 07:50 Room Air 10/06/18 07:45 72 10/06/18 04:00 98.3 79 16 108/59 (75) 99 10/06/18 03:25 88 10/06/18 00:00 97.6 94 16 112/62 (79) 100 10/05/18 23:37 84 10/05/18 21:00 Room Air 10/05/18 20:00 97.9 88 16 122/68 (86) 98 10/05/18 19:31 77 10/05/18 16:00 69 10/05/18 16:00 97.0 67 21 81/59 (66) 95 10/05/18 12:00 97.2 68 21 103/57 (72) 97 10/05/18 12:00 71 Intake and Output 10/05/18 10/06/18 19:00 07:00 Intake Total 50 ml Balance 50 ml Intake Oral 50 ml # Voids 1 # Bowel Movements 1 Laboratory Tests 10/06/18 09:10: White Blood Count 5.2, Red Blood Count 4.20, Hemoglobin 13.3, Hematocrit 38.4, Mean Corpuscular Volume 91, Mean Corpuscular Hemoglobin 31.7H, Mean Corpuscular Hemoglobin Concent 34.7, Red Cell Distribution Width 11.2L, Platelet Count 194, Mean Platelet Volume 5.4L, Neutrophils (%) (Auto) 72.1, Lymphocytes (%) (Auto) 15.9L, Monocytes (%) (Auto) 9.1, Eosinophils (%) (Auto) 2.1, Basophils (%) (Auto ) 0.9, Sodium Level 138, Potassium Level 4.0, Chloride Level 103, Carbon Dioxide Level 28, Anion Gap 7, Blood Urea Nitrogen 8, Creatinine 0.8, Estimat Glomerular Filtration Rate , Glucose Level 88, Hemoglobin A1c 5.7, Uric Acid 3.3 , Calcium Level 8.7, Phosphorus Level 3.5, Magnesium Level 1.8, Iron Level 78, Total Iron Binding Capacity 203L, Percent Iron Saturation 38, Unsaturated Iron Binding 125, Total Bilirubin 0.5, Gamma Glutamyl Transpeptidase 54, Aspartate Amino Transf (AST/SGOT) 24, Alanine Aminotransferase (ALT/SGPT) 19, Alkaline Phosphatase 61, C-Reactive Protein, Quantitative < 0.4, Pro-B-Type Natriuretic Peptide 2788H, Total Protein 6.8, Albumin 3.1L, Globulin 3.7, Albumin/Globulin Ratio 0.8L, Triglycerides Level 71, Cholesterol Level 233H, LDL Cholesterol 154H , HDL Cholesterol 54, Cholesterol/HDL Ratio 4.3, Vitamin B12 Level 1026H, Folate 11.3, Thyroid Stimulating Hormone (TSH) 4.226H, Cortisol AM Sample [ Pending], Carbamazepine (Tegretol) Level 2.2L Height (Feet): 5 Height (Inches): 7.00 Weight (Pounds): 153 General Appearance: no apparent distress Cardiovascular: normal rate Respiratory/Chest: decreased breath sounds Abdomen: soft Objective no change Kerwin Womack MD October 06, 2018 11:47
[2018-10-06 12:00] VITALS: BP 95/51
[2018-10-06] MEDS ORDERED: carBAMazepine 200mg tab ORAL SCH ×3 (12:00→21:00)
--- NOTE | 2018-10-06 15:07 | NUR ---
*-* INSURANCE *-* ALL CLINICALS AND REVIEWS HAVE BEEN FAXED TO: [facility]# [id number] / PENDING NCM: NONE ASSIGNED AT THIS TIME PLEASE FAX THE REVIEW/CLINICAL P- [phone] F- [phone]
--- NOTE | 2018-10-06 15:10 | General Progress Note ---
Assessment/Plan Status: stable Assessment/Plan: Assessment and Recs: # DVT of the lower legs s/p IVC filter, currently at home was on xarelto --> PT/INR is wnl, continue to monitor if any procedure initiaated --> duplex re-ordered to see if has resolution of dvt --> when ready for dc, consider restart xarelto # Anemia of chronic disease due to underlying chronic medical issues --> Epogen or iron at this time is not particularly indicated --> Medications have been reviewed --> low threshold for gi evaluation in case has occult + # Nausea/vomiting as per Gi --> continue to trend, zofran prn basis --> ct was negative # Pacemaker --> appreciate cards recs, interr as needed # Hyponatremia --> as per renal # CHF (congestive heart failure) --> as per cards # Dementia # Dehydration The timing of this note does not necessarily reflect the time of the patient was seen. Greatly appreciate consultation! Subjective Constitutional: Denies: no symptoms, chills, diaphoresis, fever, malaise, weakness, other HEENT: Denies: no symptoms, eye pain, blurred vision, tearing, double vision, ear pain, ear discharge, nose pain, nose congestion, throat pain, throat swelling, mouth pain, mouth swelling, other Cardiovascular: Denies: no symptoms, chest pain, edema, irregular heart rate, lightheadedness, palpitations, syncope, other Respiratory: Denies: no symptoms, cough, orthopnea, shortness of breath, SOB with excertion, SOB at rest, sputum, stridor, wheezing, other Gastrointestinal/Abdominal: Denies: no symptoms, abdomen distended, abdominal pain, black stools, tarry stools, blood in stool, constipated, diarrhea, difficulty swallowing, nausea, poor appetite, poor fluid intake, rectal bleeding , vomiting, other Genitourinary: Denies: no symptoms, burning, discharge, frequency, flank pain, hematuria, incontinence, pain, urgency, other Endocrine: Denies: no symptoms, excessive sweating, flushing, intolerance to cold, intolerance to heat, increased hunger, increased thirst, increased urine, unexplained weight gain, unexplained weight loss, other Hematologic/Lymphatic: Denies: no symptoms, anemia, easy bleeding, easy bruising, other Allergies: Coded Allergies: No Known Allergies (Unverified , 10/04/18) Subjective 10/06: no events, no f/c, no night sweats reported, given IVFs, cbc reviewed Objective Last 24 Hour Vital Signs Date Time Temp Pulse Resp B/P (MAP) Pulse Ox O2 Delivery O2 Flow Rate FiO2 10/06/18 12:00 97.5 68 18 95/51 (66) 98 10/06/18 11:39 71 10/06/18 08:00 96.9 85 20 105/88 (94) 97 10/06/18 07:50 Room Air 10/06/18 07:45 72 10/06/18 04:00 98.3 79 16 108/59 (75) 99 10/06/18 03:25 88 10/06/18 00:00 97.6 94 16 112/62 (79) 100 10/05/18 23:37 84 10/05/18 21:00 Room Air 10/05/18 20:00 97.9 88 16 122/68 (86) 98 10/05/18 19:31 77 10/05/18 16:00 69 10/05/18 16:00 97.0 67 21 81/59 (66) 95 Intake and Output 10/05/18 10/06/18 19:00 07:00 Intake Total 50 ml Balance 50 ml Intake Oral 50 ml # Voids 1 # Bowel Movements 1 Laboratory Tests 10/06/18 09:10: White Blood Count 5.2, Red Blood Count 4.20, Hemoglobin 13.3, Hematocrit 38.4, Mean Corpuscular Volume 91, Mean Corpuscular Hemoglobin 31.7H, Mean Corpuscular Hemoglobin Concent 34.7, Red Cell Distribution Width 11.2L, Platelet Count 194, Mean Platelet Volume 5.4L, Neutrophils (%) (Auto) 72.1, Lymphocytes (%) (Auto) 15.9L, Monocytes (%) (Auto) 9.1, Eosinophils (%) (Auto) 2.1, Basophils (%) (Auto ) 0.9, Sodium Level 138, Potassium Level 4.0, Chloride Level 103, Carbon Dioxide Level 28, Anion Gap 7, Blood Urea Nitrogen 8, Creatinine 0.8, Estimat Glomerular Filtration Rate , Glucose Level 88, Hemoglobin A1c 5.7, Uric Acid 3.3 , Calcium Level 8.7, Phosphorus Level 3.5, Magnesium Level 1.8, Iron Level 78, Total Iron Binding Capacity 203L, Percent Iron Saturation 38, Unsaturated Iron Binding 125, Total Bilirubin 0.5, Gamma Glutamyl Transpeptidase 54, Aspartate Amino Transf (AST/SGOT) 24, Alanine Aminotransferase (ALT/SGPT) 19, Alkaline Phosphatase 61, C-Reactive Protein, Quantitative < 0.4, Pro-B-Type Natriuretic Peptide 2788H, Total Protein 6.8, Albumin 3.1L, Globulin 3.7, Albumin/Globulin Ratio 0.8L, Triglycerides Level 71, Cholesterol Level 233H, LDL Cholesterol 154H , HDL Cholesterol 54, Cholesterol/HDL Ratio 4.3, Vitamin B12 Level 1026H, Folate 11.3, Thyroid Stimulating Hormone (TSH) 4.226H, Cortisol AM Sample [ Pending], Carbamazepine (Tegretol) Level 2.2L Height (Feet): 5 Height (Inches): 7.00 Weight (Pounds): 153 Objective PE General Appearance: well appearing, no apparent distress, alert Head: normocephalic EENT: PERRL/EOMI, normal ENT inspection Neck: supple Respiratory: normal breath sounds, no respiratory distress Cardiovascular: normal rate Gastrointestinal: normal inspection, non tender, soft Rectal: deferred Genitourinary: no CVA tenderness Musculoskeletal: normal inspection, back normal Neurologic: normal inspection, alert, oriented x3, responsive Psychiatric: normal inspection, judgement/insight normal Skin: normal inspection, normal color, no rash, warm/dry Lymphatic: normal inspection, no adenopathy Guido Hoover MD October 06, 2018 15:10
--- NOTE | 2018-10-06 15:27 | NUR ---
CASE MANAGEMENT:REVIEW 10/06/18 SI: HYPONATREMIA. DEHYDRATION. CHF 97.5 68 18 95/51 98% ON RA BNP+2788 IS: SYNTHROID PO QD LIPITOR PO QHS TEGRETOL PO Q12 IV ZOFRAN Q6HRS PRN : TELEMETRY STATUS DCP: FROM [facility]
[2018-10-06] MEDS ORDERED: NS 275ml ONE (15:47)
[2018-10-06 16:00] VITALS: BP 99/56
--- NOTE | 2018-10-06 16:23 | Cardiac Electrophysiology PN ---
Assessment/Plan Assessment/Plan 1. Atrial fibrillation. The rate is currently controlled off AVN les. The patient is off anticoagulation at this time in view of 3+ hematuria, but eventually needs to be resumed. 2. Status post [employer] pacemaker. Nl fx by tele. 3. Hyponatremia. 4. History of falls. 5. Dementia. 6. Seizure. CALLIE RN Subjective Subjective Feeling better. No CP or SOB. Objective Last 24 Hour Vital Signs Date Time Temp Pulse Resp B/P (MAP) Pulse Ox O2 Delivery O2 Flow Rate FiO2 10/06/18 12:00 97.5 68 18 95/51 (66) 98 10/06/18 11:39 71 10/06/18 08:00 96.9 85 20 105/88 (94) 97 10/06/18 07:50 Room Air 10/06/18 07:45 72 10/06/18 04:00 98.3 79 16 108/59 (75) 99 10/06/18 03:25 88 10/06/18 00:00 97.6 94 16 112/62 (79) 100 10/05/18 23:37 84 10/05/18 21:00 Room Air 10/05/18 20:00 97.9 88 16 122/68 (86) 98 10/05/18 19:31 77 Intake and Output 10/05/18 10/06/18 19:00 07:00 Intake Total 50 ml Balance 50 ml Intake Oral 50 ml # Voids 1 # Bowel Movements 1 Laboratory Tests Test 10/06/18 09:10 White Blood Count 5.2 K/UL (4.8-10.8) Red Blood Count 4.20 M/UL (4.20-5.40) Hemoglobin 13.3 G/DL (12.0-16.0) Hematocrit 38.4 % (37.0-47.0) Mean Corpuscular Volume 91 FL (80-99) Mean Corpuscular Hemoglobin 31.7 PG (27.0-31.0) H Mean Corpuscular Hemoglobin Concent 34.7 G/DL (32.0-36.0) Red Cell Distribution Width 11.2 % (11.6-14.8) L Platelet Count 194 K/UL (150-450) Mean Platelet Volume 5.4 FL (6.5-10.1) L Neutrophils (%) (Auto) 72.1 % (45.0-75.0) Lymphocytes (%) (Auto) 15.9 % (20.0-45.0) L Monocytes (%) (Auto) 9.1 % (1.0-10.0) Eosinophils (%) (Auto) 2.1 % (0.0-3.0) Basophils (%) (Auto) 0.9 % (0.0-2.0) Sodium Level 138 MMOL/L (136-145) Potassium Level 4.0 MMOL/L (3.5-5.1) Chloride Level 103 MMOL/L (98-107) Carbon Dioxide Level 28 MMOL/L (21-32) Anion Gap 7 mmol/L (5-15) Blood Urea Nitrogen 8 mg/dL (7-18) Creatinine 0.8 MG/DL (0.55-1.30) Estimat Glomerular Filtration Rate mL/min (>60) Glucose Level 88 MG/DL (74-106) Hemoglobin A1c 5.7 % (4.3-6.0) Uric Acid 3.3 MG/DL (2.6-7.2) Calcium Level 8.7 MG/DL (8.5-10.1) Phosphorus Level 3.5 MG/DL (2.5-4.9) Magnesium Level 1.8 MG/DL (1.8-2.4) Iron Level 78 ug/dL (50-175) Total Iron Binding Capacity 203 ug/dL (250-450) L Percent Iron Saturation 38 % (15-50) Unsaturated Iron Binding 125 ug/dL (112-346) Total Bilirubin 0.5 MG/DL (0.2-1.0) Gamma Glutamyl Transpeptidase 54 U/L (5-85) Aspartate Amino Transf (AST/SGOT) 24 U/L (15-37) Alanine Aminotransferase (ALT/SGPT) 19 U/L (12-78) Alkaline Phosphatase 61 U/L (46-116) C-Reactive Protein, Quantitative < 0.4 mg/dL (0.00-0.90) Pro-B-Type Natriuretic Peptide 2788 pg/mL (0-125) H Total Protein 6.8 G/DL (6.4-8.2) Albumin 3.1 G/DL (3.4-5.0) L Globulin 3.7 g/dL Albumin/Globulin Ratio 0.8 (1.0-2.7) L Triglycerides Level 71 MG/DL (30-150) Cholesterol Level 233 MG/DL (< 200) H LDL Cholesterol 154 mg/dL (<100) H HDL Cholesterol 54 MG/DL (40-60) Cholesterol/HDL Ratio 4.3 (3.3-4.4) Vitamin B12 Level 1026 PG/ML (193-986) H Folate 11.3 NG/ML (8.6-58.9) Thyroid Stimulating Hormone (TSH) 4.226 uiU/mL (0.358-3.740) Cortisol AM Sample Pending Carbamazepine (Tegretol) Level 2.2 ug/mL (4.0-12.0) L Objective HEAD AND NECK: No JVD. LUNGS: Clear. CARDIOVASCULAR: Regular S1 and S2 with no gallop. 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 ABDOMEN: Soft. EXTREMITIES: No pitting edema. Tomás Negrete MD October 06, 2018 16:23
[2018-10-06] MEDS ORDERED: Acetaminophen 500mg (ES) tab ORAL PRN ×3 (17:00→18:45)
--- NOTE | 2018-10-06 17:10 | NUR ---
NURSE NOTES: Patient arrived to unit at 1700. Received report from Jaquan CUEVA. Patient is awake alert and oriented x2, no acute distress noted. Skin checked, noted sacral redness and bilateral heel optifoam for skin prophylaxis. Will take WCP per policy. RFA IV locked. Patient placed in room near nurses station for safety. Seizure precautions maintained, side rails padded. Fall precautions implemented. Side rails upx3, bed low and locked, call light in reach, bed alarm armed. Will continue to monitor.
--- NOTE | 2018-10-06 17:45 | History and Physical Report ---
DATE OF ADMISSION: 10/04/2018 NOTE: POOR AUDIO HISTORY OF PRESENT ILLNESS: The patient evidence of hyponatremia, CHF exacerbation, dementia, poor historian, and also vomiting x3 days. The patient has a pacemaker in. The CT abdomen showed pacemaker, cardiomegaly, complex left Bartholin gland, and no colitis and no obstruction was noted. The patient does have some abdominal cramps. Denies rectal bleeding. The patient has a history of smoking and is a poor historian due to dementia. PAST MEDICAL HISTORY: organic brain syndrome, CHF, arrhythmia, Bartholin cyst, hypothyroidism, chronic pain syndrome, hypertension, and history of atrial fibrillation. PAST SURGICAL HISTORY: Pacemaker, . SOCIAL HISTORY: The patient has a history of . Comes from a alf. MEDICATIONS: Gabapentin, Tegretol, Levoxyl, metoprolol, Xarelto, . REVIEW OF SYSTEMS: HEENT: Denies headaches. Denies shortness of breath. Denies cough. CARDIOVASCULAR: Denies chest pain. GASTROINTESTINAL: abdominal pain. Denies vomiting or diarrhea. EXTREMITIES: . NEUROLOGIC: Denies any changes in speech pattern; however, the patient is a poor historian. PHYSICAL EXAMINATION: VITAL SIGNS: Temperature 97, pulse is 98, and blood pressure is 103/70. HEENT: PERRLA. NECK: Supple. No lymphadenopathy. CHEST: Clear to auscultation. CARDIOVASCULAR: Heart is irregularly irregular. GASTROINTESTINAL: Abdomen is soft. Positive bowel sounds. Nontender. EXTREMITIES: 1+ edema. . Generalized weakness. LABORATORY DATA: WBC of 6.1, hemoglobin 13.9, and platelets 205,000. Sodium 130, potassium 4.8, BUN of 14, and creatinine 0.9. Troponin 0.029. ASSESSMENT AND PLAN: Abdominal pain, CHF exacerbation, and hyponatremia. Admitted for those reasons and I have asked Dr. Baez, Dr. Negrete, and Dr. Womack to see the patient for the hyponatremia management as well as evaluation, as well as find out why the patient is vomiting. Jose Woodard M.D. DR: KENDRA JOB#: [id number] CC:
--- NOTE | 2018-10-06 19:11 | NUR ---
HAND-OFF: Report given to Rodolfo CUEVA. Patient is in stable condition.
--- NOTE | 2018-10-06 19:12 | NUR ---
NURSE NOTES: Report taken from HAMMAD Stanton. Patient is awake and in bed. A&Ox2, patient is aware who she is and that she is in a hospital, is very talkative and rambles on, but does follow orders. Has an area of redness on her sacrum, pictures taken, applied moisture barrier cream and optifoam per order. IV c/d/i and patent, no fluids running. Bed in lowest position, call light within reach.
[2018-10-06 20:00] VITALS: BP 100/60
[2018-10-06] MEDS: carBAMazepine 200mg tab ORAL SCH (20:46)
--- NOTE | 2018-10-06 22:00 | General Progress Note ---
Assessment/Plan Problem List: (1) Dementia ICD Codes: F03.90 - Unspecified dementia without behavioral disturbance SNOMED: 05987240 (2) CHF (congestive heart failure) ICD Codes: I50.9 - Heart failure, unspecified SNOMED: 08470053 (3) Vomiting ICD Codes: R11.10 - Vomiting, unspecified SNOMED: 003097338 (4) Pacemaker ICD Codes: Z95.0 - Presence of cardiac pacemaker SNOMED: 063429338 (5) Dehydration ICD Codes: E86.0 - Dehydration SNOMED: 78974456 (6) Hypothyroidism ICD Codes: E03.9 - Hypothyroidism, unspecified SNOMED: 42034711 Status: stable, progressing Assessment/Plan: afebrile nac chf no vomitting today reviewed chart and labs and meds improving Subjective ROS Limited/Unobtainable: Yes Allergies: Coded Allergies: No Known Allergies (Unverified , 10/04/18) Objective Last 24 Hour Vital Signs Date Time Temp Pulse Resp B/P (MAP) Pulse Ox O2 Delivery O2 Flow Rate FiO2 10/06/18 16:00 97.1 70 20 99/56 (70) 97 10/06/18 12:00 97.5 68 18 95/51 (66) 98 10/06/18 11:39 71 10/06/18 08:00 96.9 85 20 105/88 (94) 97 10/06/18 07:50 Room Air 10/06/18 07:45 72 10/06/18 04:00 98.3 79 16 108/59 (75) 99 10/06/18 03:25 88 10/06/18 00:00 97.6 94 16 112/62 (79) 100 10/05/18 23:37 84 Intake and Output 10/05/18 10/06/18 18:59 06:59 Intake Total 50 ml Balance 50 ml Intake Oral 50 ml # Voids 1 # Bowel Movements 1 Laboratory Tests 10/06/18 09:10: White Blood Count 5.2, Red Blood Count 4.20, Hemoglobin 13.3, Hematocrit 38.4, Mean Corpuscular Volume 91, Mean Corpuscular Hemoglobin 31.7H, Mean Corpuscular Hemoglobin Concent 34.7, Red Cell Distribution Width 11.2L, Platelet Count 194, Mean Platelet Volume 5.4L, Neutrophils (%) (Auto) 72.1, Lymphocytes (%) (Auto) 15.9L, Monocytes (%) (Auto) 9.1, Eosinophils (%) (Auto) 2.1, Basophils (%) (Auto ) 0.9, Sodium Level 138, Potassium Level 4.0, Chloride Level 103, Carbon Dioxide Level 28, Anion Gap 7, Blood Urea Nitrogen 8, Creatinine 0.8, Estimat Glomerular Filtration Rate , Glucose Level 88, Hemoglobin A1c 5.7, Uric Acid 3.3 , Calcium Level 8.7, Phosphorus Level 3.5, Magnesium Level 1.8, Iron Level 78, Total Iron Binding Capacity 203L, Percent Iron Saturation 38, Unsaturated Iron Binding 125, Total Bilirubin 0.5, Gamma Glutamyl Transpeptidase 54, Aspartate Amino Transf (AST/SGOT) 24, Alanine Aminotransferase (ALT/SGPT) 19, Alkaline Phosphatase 61, C-Reactive Protein, Quantitative < 0.4, Pro-B-Type Natriuretic Peptide 2788H, Total Protein 6.8, Albumin 3.1L, Globulin 3.7, Albumin/Globulin Ratio 0.8L, Triglycerides Level 71, Cholesterol Level 233H, LDL Cholesterol 154H , HDL Cholesterol 54, Cholesterol/HDL Ratio 4.3, Vitamin B12 Level 1026H, Folate 11.3, Thyroid Stimulating Hormone (TSH) 4.226H, Cortisol AM Sample [ Pending], Carbamazepine (Tegretol) Level 2.2L Height (Feet): 5 Height (Inches): 7.00 Weight (Pounds): 153 Cardiovascular: regular rhythm Respiratory/Chest: lungs clear Abdomen: soft Jose Woodard MD October 06, 2018 22:00
[2018-10-07 00:53] VITALS: BP 99/54
[2018-10-07 04:00] VITALS: BP 112/59
--- NOTE | 2018-10-07 07:27 | NUR ---
HAND-OFF: Report given to HAMMAD Vela. Patient is asleep in bed, VS stable.
--- NOTE | 2018-10-07 07:30 | NUR ---
NURSE NOTES: Patient is in bed asleep but arousable to verbal stimuli. Stable. No signs of facial grimacing or discomfort noted. Breathing is even and unlabored. Comfortable in bed in locked and lowest position with call light within reach. Side rails padded, bed alarm on. All safety measures provided. Will continue to monitor.
[2018-10-07 08:00] VITALS: BP 112/56
[2018-10-07 08:04] LABS: BASOPHILS % (AUTO) 1.4 % (0.0-2.0); EOSINOPHILS % (AUTO) 4.2 % (0.0-3.0); HEMATOCRIT 36.5 % (37.0-47.0); HEMOGLOBIN 12.7 G/DL (12.0-16.0); LYMPHOCYTES % (AUTO) 14.1 % (20.0-45.0); MEAN CORPUSCULAR VOLUME 92 FL (80-99); MONOCYTES % (AUTO) 10.5 % (1.0-10.0); NEUTROPHILS % (AUTO) 69.8 % (45.0-75.0); PLATELET COUNT 180 K/UL (150-450); RED BLOOD COUNT 3.97 M/UL (4.20-5.40); RED CELL DISTRIBUTION WIDTH 11.1 % (11.6-14.8); WHITE BLOOD COUNT 5.2 K/UL (4.8-10.8)
[2018-10-07 08:23] LABS: ANION GAP 7 mmol/L (5-15); BLOOD UREA NITROGEN 7 mg/dL (7-18); CALCIUM 8.4 MG/DL (8.5-10.1); CARBON DIOXIDE 28 MMOL/L (21-32); CHLORIDE 104 MMOL/L (98-107); CREATININE 0.9 MG/DL (0.55-1.30); POTASSIUM 4.5 MMOL/L (3.5-5.1); SODIUM 139 MMOL/L (136-145)
[2018-10-07] MEDS: carBAMazepine 200mg tab ORAL SCH ×2 (09:00→21:00)
--- NOTE | 2018-10-07 09:38 | GI Progress Note ---
Assessment/Plan Problems: (1) Dehydration ICD Codes: E86.0 - Dehydration SNOMED: 37911403 (2) Vomiting ICD Codes: R11.10 - Vomiting, unspecified SNOMED: 583134755 (3) Hyponatremia ICD Codes: E87.1 - Hypo-osmolality and hyponatremia SNOMED: 80854822 (4) Dementia ICD Codes: F03.90 - Unspecified dementia without behavioral disturbance SNOMED: 35721982 (5) Bartholin cyst ICD Codes: N75.0 - Cyst of Bartholin's gland SNOMED: 55283761 Status: stable Status Narrative Discussed with Dr. Baze Assessment/Plan neg CT No recurrent vomiting okay for DC per GI standpoint Symptomatic treatment at this time Advance diet as tolerated, mech soft Zofran as needed, Reglan for persistent vomiting PPI Electrolyte correction GI procedures only if emergent Follow-up psych recommendations The patient was seen and examined at bedside and all new and available data was reviewed in the patients chart. I agree with the above findings, impression and plan. (Patient seen earlier today. Signature stamp does not reflect patient encounter time.). - Kvng Baez MD Subjective Subjective Denies any abdominal pain Denies any nausea vomiting or diarrhea Objective Last 24 Hour Vital Signs Date Time Temp Pulse Resp B/P (MAP) Pulse Ox O2 Delivery O2 Flow Rate FiO2 10/07/18 09:00 Room Air 10/07/18 08:00 98.3 77 18 112/56 (74) 95 10/07/18 04:00 97.7 73 18 112/59 (76) 96 10/07/18 00:53 97.3 83 18 99/54 (69) 93 10/06/18 21:00 Room Air 10/06/18 20:00 98.1 74 18 100/60 (73) 93 10/06/18 16:00 97.1 70 20 99/56 (70) 97 10/06/18 12:00 97.5 68 18 95/51 (66) 98 10/06/18 11:39 71 Intake and Output 10/06/18 10/07/18 19:00 07:00 Intake Total 360 ml Output Total 400 ml Balance -40 ml Intake Oral 360 ml Output Urine Total 400 ml # Voids 1 2 # Bowel Movements 1 Laboratory Tests Test 10/07/18 06:40 White Blood Count 5.2 K/UL (4.8-10.8) Red Blood Count 3.97 M/UL (4.20-5.40) L Hemoglobin 12.7 G/DL (12.0-16.0) Hematocrit 36.5 % (37.0-47.0) L Mean Corpuscular Volume 92 FL (80-99) Mean Corpuscular Hemoglobin 31.9 PG (27.0-31.0) H Mean Corpuscular Hemoglobin Concent 34.7 G/DL (32.0-36.0) Red Cell Distribution Width 11.1 % (11.6-14.8) L Platelet Count 180 K/UL (150-450) Mean Platelet Volume 5.0 FL (6.5-10.1) L Neutrophils (%) (Auto) 69.8 % (45.0-75.0) Lymphocytes (%) (Auto) 14.1 % (20.0-45.0) L Monocytes (%) (Auto) 10.5 % (1.0-10.0) H Eosinophils (%) (Auto) 4.2 % (0.0-3.0) H Basophils (%) (Auto) 1.4 % (0.0-2.0) Sodium Level 139 MMOL/L (136-145) Potassium Level 4.5 MMOL/L (3.5-5.1) Chloride Level 104 MMOL/L (98-107) Carbon Dioxide Level 28 MMOL/L (21-32) Anion Gap 7 mmol/L (5-15) Blood Urea Nitrogen 7 mg/dL (7-18) Creatinine 0.9 MG/DL (0.55-1.30) Estimat Glomerular Filtration Rate mL/min (>60) Glucose Level 89 MG/DL (74-106) Calcium Level 8.4 MG/DL (8.5-10.1) L Height (Feet): 5 Height (Inches): 7.00 Weight (Pounds): 151 General Appearance: WD/WN, no apparent distress, alert Cardiovascular: normal rate Respiratory/Chest: normal breath sounds, no respiratory distress Abdominal Exam: normal bowel sounds, non tender, soft Extremities: normal range of motion, non-tender Olaf Black NP October 07, 2018 09:38
--- NOTE | 2018-10-07 11:35 | NUR ---
*-* INSURANCE *-* ALL CLINICALS AND REVIEWS HAVE BEEN FAXED TO: [facility]GEL[facility] SHAW# [id number] PLEASE FAX THE REVIEW/CLINICAL P- [phone] F- [phone]
[2018-10-07 12:00] VITALS: BP 97/59
--- NOTE | 2018-10-07 12:03 | Hematology/Onc Progress Note ---
Assessment/Plan Assessment/Plan Assessment and Recs: # DVT of the lower legs s/p IVC filter, currently at home was on xarelto --> PT/INR is wnl, continue to monitor if any procedure initiaated --> duplex re-ordered to see if has resolution of dvt --> when ready for dc, consider restart xarelto (currently with hematuria) --> cards recs reviewed # Anemia of chronic disease due to underlying chronic medical issues --> Epogen or iron at this time is not particularly indicated --> Medications have been reviewed --> low threshold for gi evaluation in case has occult + # Nausea/vomiting as per Gi --> continue to trend, zofran prn basis --> ct was negative # Pacemaker --> appreciate cards recs, interr as needed # Hyponatremia --> as per renal # CHF (congestive heart failure) --> as per cards # Dementia # Dehydration # AFib, management as per cards The timing of this note does not necessarily reflect the time of the patient was seen. Greatly appreciate consultation! Subjective Constitutional: Denies: no symptoms, chills, fever, malaise, weakness, other HEENT: Denies: no symptoms, eye pain, blurred vision, tearing, double vision, ear pain, ear discharge, nose pain, nose congestion, throat pain, throat swelling, mouth pain, mouth swelling, other Cardiovascular: Denies: no symptoms, chest pain, edema, irregular heart rate, lightheadedness, palpitations, syncope, other Genitourinary: Denies: no symptoms, burning, discharge, frequency, flank pain, hematuria, incontinence, pain, urgency, other Neurologic/Psychiatric: Denies: no symptoms, anxiety, depressed, emotional problems, headache, numbness, paresthesia, pre-existing deficit, seizure, tingling, tremors, weakness, other Endocrine: Denies: no symptoms, excessive sweating, flushing, intolerance to cold, intolerance to heat, increased hunger, increased thirst, increased urine, unexplained weight gain, unexplained weight loss, other Allergies: Coded Allergies: No Known Allergies (Unverified , 10/04/18) Subjective 10/06: no events, no f/c, no night sweats reported, given IVFs, cbc reviewed 10/07: arousable to verbal stimuli, no evnets, no chills Objective Objective Current Medications Medications (Trade) Dose Ordered Sig/Charles Route PRN Reason Start Time Stop Time Status Last Admin Dose Admin Acetaminophen (Tylenol) 500 mg Q4H PRN ORAL Mild Pain/Temp > 100.5 10/06/18 17:00 11/03/18 16:59 Atorvastatin Calcium (Lipitor) 10 mg BEDTIME ORAL 10/06/18 21:00 11/05/18 20:59 10/06/18 20:47 Carbamazepine (TEGretol) 200 mg Q12HR ORAL 10/06/18 21:00 11/05/18 20:59 10/07/18 09:00 Levothyroxine Sodium (Synthroid) 50 mcg DAILY@0630 ORAL 10/07/18 06:30 11/06/18 06:29 10/07/18 05:57 Ondansetron HCl (Zofran) 4 mg Q6H PRN IVP Nausea & Vomiting 10/06/18 17:00 11/03/18 16:59 Last 24 Hour Vital Signs Date Time Temp Pulse Resp B/P (MAP) Pulse Ox O2 Delivery O2 Flow Rate FiO2 10/07/18 09:00 Room Air 10/07/18 08:00 98.3 77 18 112/56 (74) 95 10/07/18 04:00 97.7 73 18 112/59 (76) 96 10/07/18 00:53 97.3 83 18 99/54 (69) 93 10/06/18 21:00 Room Air 10/06/18 20:00 98.1 74 18 100/60 (73) 93 10/06/18 16:00 97.1 70 20 99/56 (70) 97 10/06/18 12:00 97.5 68 18 95/51 (66) 98 10/06/18 11:39 71 10/06/18 08:00 96.9 85 20 105/88 (94) 97 10/06/18 07:50 Room Air 10/06/18 07:45 72 10/06/18 04:00 98.3 79 16 108/59 (75) 99 10/06/18 03:25 88 10/06/18 00:00 97.6 94 16 112/62 (79) 100 10/05/18 23:37 84 10/05/18 21:00 Room Air 10/05/18 20:00 97.9 88 16 122/68 (86) 98 10/05/18 19:31 77 10/05/18 16:00 69 10/05/18 16:00 97.0 67 21 81/59 (66) 95 Intake and Output 10/06/18 10/07/18 19:00 07:00 Intake Total 360 ml Output Total 400 ml Balance -40 ml Intake Oral 360 ml Output Urine Total 400 ml # Voids 1 2 # Bowel Movements 1 Labs Test 10/04/18 16:30 10/05/18 08:06 10/05/18 08:26 10/06/18 09:10 White Blood Count 6.1 K/UL (4.8-10.8) 5.5 K/UL (4.8-10.8) 5.2 K/UL (4.8-10.8) Red Blood Count 4.36 M/UL (4.20-5.40) 4.00 M/UL (4.20-5.40) 4.20 M/UL (4.20-5.40) Hemoglobin 13.9 G/DL (12.0-16.0) 12.6 G/DL (12.0-16.0) 13.3 G/DL (12.0-16.0) Hematocrit 37.9 % (37.0-47.0) 36.5 % (37.0-47.0) 38.4 % (37.0-47.0) Mean Corpuscular Volume 87 FL (80-99) 91 FL (80-99) 91 FL (80-99) Mean Corpuscular Hemoglobin 31.9 PG (27.0-31.0) 31.5 PG (27.0-31.0) 31.7 PG (27.0-31.0) Mean Corpuscular Hemoglobin Concent 36.6 G/DL (32.0-36.0) 34.5 G/DL (32.0-36.0) 34.7 G/DL (32.0-36.0) Red Cell Distribution Width 10.6 % (11.6-14.8) 11.1 % (11.6-14.8) 11.2 % (11.6-14.8) Platelet Count 205 K/UL (150-450) 193 K/UL (150-450) 194 K/UL (150-450) Mean Platelet Volume 5.0 FL (6.5-10.1) 5.7 FL (6.5-10.1) 5.4 FL (6.5-10.1) Neutrophils (%) (Auto) 80.1 % (45.0-75.0) 69.6 % (45.0-75.0) 72.1 % (45.0-75.0) Lymphocytes (%) (Auto) 10.9 % (20.0-45.0) 14.9 % (20.0-45.0) 15.9 % (20.0-45.0) Monocytes (%) (Auto) 7.0 % (1.0-10.0) 11.6 % (1.0-10.0) 9.1 % (1.0-10.0) Eosinophils (%) (Auto) 1.0 % (0.0-3.0) 2.9 % (0.0-3.0) 2.1 % (0.0-3.0) Basophils (%) (Auto) 1.0 % (0.0-2.0) 1.0 % (0.0-2.0) 0.9 % (0.0-2.0) Prothrombin Time 11.4 SEC (9.30-11.50) Prothromb Time International Ratio 1.1 (0.9-1.1) Activated Partial Thromboplast Time 25 SEC (23-33) Urine Color Yellow Urine Appearance Clear Urine pH 7 (4.5-8.0) Urine Specific [place]wood 1.010 (1.005-1.035) Urine Protein 1+ (NEGATIVE) Urine Glucose (UA) Negative (NEGATIVE) Urine Ketones Negative (NEGATIVE) Urine Blood 3+ (NEGATIVE) Urine Nitrite Negative (NEGATIVE) Urine Bilirubin Negative (NEGATIVE) Urine Urobilinogen Normal MG/DL (0.0-1.0) Urine Leukocyte Esterase 1+ (NEGATIVE) Urine RBC 2-4 /HPF (0 - 2) Urine WBC 0-2 /HPF (0 - 2) Urine Squamous Epithelial Cells Moderate /LPF (NONE/OCC) Urine Bacteria Few /HPF (NONE) Sodium Level 130 MMOL/L (136-145) 134 MMOL/L (136-145) 138 MMOL/L (136-145) Potassium Level 4.8 MMOL/L (3.5-5.1) 3.9 MMOL/L (3.5-5.1) 4.0 MMOL/L (3.5-5.1) Chloride Level 96 MMOL/L (98-107) 102 MMOL/L (98-107) 103 MMOL/L (98-107) Carbon Dioxide Level 25 MMOL/L (21-32) 23 MMOL/L (21-32) 28 MMOL/L (21-32) Anion Gap 9 mmol/L (5-15) 9 mmol/L (5-15) 7 mmol/L (5-15) Blood Urea Nitrogen 14 mg/dL (7-18) 11 mg/dL (7-18) 8 mg/dL (7-18) Creatinine 0.9 MG/DL (0.55-1.30) 0.8 MG/DL (0.55-1.30) 0.8 MG/DL (0.55-1.30) Estimat Glomerular Filtration Rate mL/min (>60) mL/min (>60) mL/min (>60) Glucose Level 116 MG/DL (74-106) 89 MG/DL (74-106) 88 MG/DL (74-106) Calcium Level 8.7 MG/DL (8.5-10.1) 8.4 MG/DL (8.5-10.1) 8.7 MG/DL (8.5-10.1) Total Bilirubin 0.4 MG/DL (0.2-1.0) 0.5 MG/DL (0.2-1.0) 0.5 MG/DL (0.2-1.0) Aspartate Amino Transf (AST/SGOT) 26 U/L (15-37) 24 U/L (15-37) 24 U/L (15-37) Alanine Aminotransferase (ALT/SGPT) 19 U/L (12-78) 18 U/L (12-78) 19 U/L (12-78) Alkaline Phosphatase 70 U/L (46-116) 59 U/L (46-116) 61 U/L (46-116) Troponin I 0.029 ng/mL (0.000-0.056) Total Protein 7.3 G/DL (6.4-8.2) 6.3 G/DL (6.4-8.2) 6.8 G/DL (6.4-8.2) Albumin 3.3 G/DL (3.4-5.0) 2.9 G/DL (3.4-5.0) 3.1 G/DL (3.4-5.0) Globulin 4.0 g/dL 3.4 g/dL 3.7 g/dL Albumin/Globulin Ratio 0.8 (1.0-2.7) 0.9 (1.0-2.7) 0.8 (1.0-2.7) Lipase 177 U/L (73-393) Ferritin 144 NG/ML (8-388) Hemoglobin A1c 5.7 % (4.3-6.0) Uric Acid 3.3 MG/DL (2.6-7.2) Phosphorus Level 3.5 MG/DL (2.5-4.9) Magnesium Level 1.8 MG/DL (1.8-2.4) Iron Level 78 ug/dL (50-175) Total Iron Binding Capacity 203 ug/dL (250-450) Percent Iron Saturation 38 % (15-50) Unsaturated Iron Binding 125 ug/dL (112-346) Gamma Glutamyl Transpeptidase 54 U/L (5-85) C-Reactive Protein, Quantitative < 0.4 mg/dL (0.00-0.90) Pro-B-Type Natriuretic Peptide 2788 pg/mL (0-125) Triglycerides Level 71 MG/DL (30-150) Cholesterol Level 233 MG/DL (< 200) LDL Cholesterol 154 mg/dL (<100) HDL Cholesterol 54 MG/DL (40-60) Cholesterol/HDL Ratio 4.3 (3.3-4.4) Vitamin B12 Level 1026 PG/ML (193-986) Folate 11.3 NG/ML (8.6-58.9) Thyroid Stimulating Hormone (TSH) 4.226 uiU/mL (0.358-3.740) Cortisol AM Sample 10.0 UG/DL Carbamazepine (Tegretol) Level 2.2 ug/mL (4.0-12.0) Test 10/07/18 06:40 White Blood Count 5.2 K/UL (4.8-10.8) Red Blood Count 3.97 M/UL (4.20-5.40) Hemoglobin 12.7 G/DL (12.0-16.0) Hematocrit 36.5 % (37.0-47.0) Mean Corpuscular Volume 92 FL (80-99) Mean Corpuscular Hemoglobin 31.9 PG (27.0-31.0) Mean Corpuscular Hemoglobin Concent 34.7 G/DL (32.0-36.0) Red Cell Distribution Width 11.1 % (11.6-14.8) Platelet Count 180 K/UL (150-450) Mean Platelet Volume 5.0 FL (6.5-10.1) Neutrophils (%) (Auto) 69.8 % (45.0-75.0) Lymphocytes (%) (Auto) 14.1 % (20.0-45.0) Monocytes (%) (Auto) 10.5 % (1.0-10.0) Eosinophils (%) (Auto) 4.2 % (0.0-3.0) Basophils (%) (Auto) 1.4 % (0.0-2.0) Sodium Level 139 MMOL/L (136-145) Potassium Level 4.5 MMOL/L (3.5-5.1) Chloride Level 104 MMOL/L (98-107) Carbon Dioxide Level 28 MMOL/L (21-32) Anion Gap 7 mmol/L (5-15) Blood Urea Nitrogen 7 mg/dL (7-18) Creatinine 0.9 MG/DL (0.55-1.30) Estimat Glomerular Filtration Rate mL/min (>60) Glucose Level 89 MG/DL (74-106) Calcium Level 8.4 MG/DL (8.5-10.1) Height (Feet): 5 Height (Inches): 7.00 Weight (Pounds): 151 Objective PE General Appearance: well appearing, no apparent distress, alert Head: normocephalic EENT: PERRL/EOMI, normal ENT inspection Neck: supple Respiratory: normal breath sounds, no respiratory distress Cardiovascular: normal rate Gastrointestinal: normal inspection, non tender, soft Rectal: deferred Genitourinary: no CVA tenderness Musculoskeletal: normal inspection, back normal Neurologic: normal inspection, alert, oriented x3, responsive Psychiatric: normal inspection, judgement/insight normal Skin: normal inspection, normal color, no rash, warm/dry Lymphatic: normal inspection, no adenopathy Guido Hoover MD October 07, 2018 12:03
--- NOTE | 2018-10-07 12:22 | NUR ---
CASE MANAGEMENT:REVIEW 10/07/18 SI: CHF. DEHYDRATION. VOMITING 98.3 77 18 112/56 95% ON RA IS: SYNTHROID PO QD LIPITOR PO QHS TEGRETOL PO Q12 : MED/SURG STATUS 3 EAST DCP: [facility]
--- NOTE | 2018-10-07 12:27 | NUR ---
DISCHARGE PLANNING FRONT LOADER RESIDENTIAL DRIVER CALLED [facility] AND SPOKE WITH ROSA IN ADMISSIONS PER ROSA PATIENT IS WELCOME TO RETURN TO [facility] WHEN READY FOR DISCHARGE
--- NOTE | 2018-10-07 13:00 | NUR ---
NURSE NOTES: Encouraged patient to drink fluids. Patient refused. Offered patient apple juice and fruit, patient refused.
--- NOTE | 2018-10-07 14:42 | Nephrology Progress Note ---
Assessment/Plan Problem List: (1) Hyponatremia (2) Pacemaker (3) Dehydration (4) Dementia (5) Hypothyroidism Assessment Hyponatremia: resolved - depletional due to vomiting? improved with Saline - CHF CHF (congestive heart failure) Pacemaker Dementia HypoThyroid Plan resume tegretol ?? Sz Ds checked cortisol level 2D echo P TSH checked DC hydrate monitor lytes per consultants med surg ? DC Subjective ROS Limited/Unobtainable: No Constitutional: Reports: malaise Objective Objective Last 24 Hour Vital Signs Date Time Temp Pulse Resp B/P (MAP) Pulse Ox O2 Delivery O2 Flow Rate FiO2 10/07/18 12:00 97.7 99 18 97/59 (72) 97 10/07/18 09:00 Room Air 10/07/18 08:00 98.3 77 18 112/56 (74) 95 10/07/18 04:00 97.7 73 18 112/59 (76) 96 10/07/18 00:53 97.3 83 18 99/54 (69) 93 10/06/18 21:00 Room Air 10/06/18 20:00 98.1 74 18 100/60 (73) 93 10/06/18 16:00 97.1 70 20 99/56 (70) 97 Intake and Output 10/06/18 10/07/18 18:59 06:59 Intake Total 360 ml Output Total 400 ml Balance -40 ml Intake Oral 360 ml Output Urine Total 400 ml # Voids 1 2 # Bowel Movements 1 Laboratory Tests 10/07/18 06:40: White Blood Count 5.2, Red Blood Count 3.97L, Hemoglobin 12.7, Hematocrit 36.5L , Mean Corpuscular Volume 92, Mean Corpuscular Hemoglobin 31.9H, Mean Corpuscular Hemoglobin Concent 34.7, Red Cell Distribution Width 11.1L, Platelet Count 180, Mean Platelet Volume 5.0L, Neutrophils (%) (Auto) 69.8, Lymphocytes (%) (Auto) 14.1L, Monocytes (%) (Auto) 10.5H, Eosinophils (%) (Auto ) 4.2H, Basophils (%) (Auto) 1.4, Sodium Level 139, Potassium Level 4.5, Chloride Level 104, Carbon Dioxide Level 28, Anion Gap 7, Blood Urea Nitrogen 7 , Creatinine 0.9, Estimat Glomerular Filtration Rate , Glucose Level 89, Calcium Level 8.4L Height (Feet): 5 Height (Inches): 7.00 Weight (Pounds): 151 General Appearance: no apparent distress Objective no change Kerwin Womack MD October 07, 2018 14:42
--- NOTE | 2018-10-07 14:46 | NUR ---
RD ASSESSMENT & RECOMMENDATIONS SEE CARE ACTIVITY FOR COMPLETE ASSESSMENT DAILY ESTIMATED NEEDS: Needs based on Cardiac 68.6kg 25-30 kcals/kg [id number] total kcals 1-1.2 g protein/kg 69-82 g total protein Per MD, h/o CHF NUTRITION DIAGNOSIS: Decreased sodium and fat needs r/t cardiac history as evidenced by pt w/ CHF, elev BNP, elev Cholesterol and LDL. CURRENT DIET: Regular ms chopped PO DIET RECOMMENDATIONS: maintain Regular diet (texture as tolerated) w/ current variable intake ------ ADDITIONAL RECOMMENDATIONS: 1) Add Ensure 1 bottle BID 2) Obtain calibrated bed scale wts 3) Add VIT C 250mg daily + MICHELLE BID for sacral redness to prevent skin breakdown 4) A1C 5.7/ pre-MD; Monitor BG need for hypoglycemics 5) WOOD CAULKER eval for appropriate texture
--- NOTE | 2018-10-07 14:54 | Cardiac Electrophysiology PN ---
Assessment/Plan Assessment/Plan 1. Atrial fibrillation. The rate is currently controlled off AVN les. The patient is off anticoagulation at this time in view of 3+ hematuria, but eventually needs to be resumed. 2. Status post Medtronic pacemaker. Nl fx by tele. 3. Hyponatremia. 4. History of falls. 5. Dementia. 6. Seizure. 7.Hyperlipidemia on Lipitor DW RN Subjective Subjective Transferred to [facility]. No CP or SOB. Objective Last 24 Hour Vital Signs Date Time Temp Pulse Resp B/P (MAP) Pulse Ox O2 Delivery O2 Flow Rate FiO2 10/07/18 12:00 97.7 99 18 97/59 (72) 97 10/07/18 09:00 Room Air 10/07/18 08:00 98.3 77 18 112/56 (74) 95 10/07/18 04:00 97.7 73 18 112/59 (76) 96 10/07/18 00:53 97.3 83 18 99/54 (69) 93 10/06/18 21:00 Room Air 10/06/18 20:00 98.1 74 18 100/60 (73) 93 10/06/18 16:00 97.1 70 20 99/56 (70) 97 Intake and Output 10/06/18 10/07/18 19:00 07:00 Intake Total 360 ml Output Total 400 ml Balance -40 ml Intake Oral 360 ml Output Urine Total 400 ml # Voids 1 2 # Bowel Movements 1 Laboratory Tests Test 10/07/18 06:40 White Blood Count 5.2 K/UL (4.8-10.8) Red Blood Count 3.97 M/UL (4.20-5.40) L Hemoglobin 12.7 G/DL (12.0-16.0) Hematocrit 36.5 % (37.0-47.0) L Mean Corpuscular Volume 92 FL (80-99) Mean Corpuscular Hemoglobin 31.9 PG (27.0-31.0) H Mean Corpuscular Hemoglobin Concent 34.7 G/DL (32.0-36.0) Red Cell Distribution Width 11.1 % (11.6-14.8) L Platelet Count 180 K/UL (150-450) Mean Platelet Volume 5.0 FL (6.5-10.1) L Neutrophils (%) (Auto) 69.8 % (45.0-75.0) Lymphocytes (%) (Auto) 14.1 % (20.0-45.0) L Monocytes (%) (Auto) 10.5 % (1.0-10.0) H Eosinophils (%) (Auto) 4.2 % (0.0-3.0) H Basophils (%) (Auto) 1.4 % (0.0-2.0) Sodium Level 139 MMOL/L (136-145) Potassium Level 4.5 MMOL/L (3.5-5.1) Chloride Level 104 MMOL/L (98-107) Carbon Dioxide Level 28 MMOL/L (21-32) Anion Gap 7 mmol/L (5-15) Blood Urea Nitrogen 7 mg/dL (7-18) Creatinine 0.9 MG/DL (0.55-1.30) Estimat Glomerular Filtration Rate mL/min (>60) Glucose Level 89 MG/DL (74-106) Calcium Level 8.4 MG/DL (8.5-10.1) L Microbiology Date/Time Source Procedure Growth Status 10/04/18 18:30 Nasal Nares MRSA Culture - Final NO METHICILLIN RESISTANT STAPH AUREUS... Complete 10/04/18 18:30 Rectum VRE Culture - Final NO VANCOMYCIN RESISTANT ENTEROCOCCUS ... Complete 10/04/18 18:30 Rectum - Final NO CARBAPENEM-RESISTANT ENTEROBACTERI... Complete Objective HEAD AND NECK: No JVD. LUNGS: Clear. CARDIOVASCULAR: Regular S1 and S2 with no gallop. 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 ABDOMEN: Soft. EXTREMITIES: No pitting edema. Tomás Negrete MD October 07, 2018 14:54
[2018-10-07 16:00] VITALS: BP 100/67
--- NOTE | 2018-10-07 19:30 | NUR ---
HAND-OFF: Report given to Guillermina MICHELLE. Patient is stable.
[2018-10-07 20:00] VITALS: BP 111/59
--- NOTE | 2018-10-07 20:00 | NUR ---
NURSE NOTES: RECEIVED PATIENT LYING IN BED, AWAKE, ALERT/ORIENTED TO SELF, REALITY ORIENTATION PROVIDED DURING ASSESSMENT AND PRN, DENIES PAIN. NO SIGNS AND SYMPTOMS OF ACUTE CARDIO RESPIRATORY DISTRESS/SHORTNESS OF BREATH, DENIES CHEST PAIN, PACEMAKER TO LEFT UPPER CHEST WALL, NOTED WITH TRACE EDEMA TO BILATERAL LOWER EXTREMITIES. ABDOMEN SOFT/NON DISTENDED/NON TENDER/AUDIBLE BOWEL SOUNDS, DENIES ABDOMINAL PAIN "NO PAIN". ASSISTED WITH COMFORT CARE, ABLE TO REPOSITION WITH ASSISTANCE, OPTIFOAM INTACT TO BILATERAL HEELS/SACRAL- SIDE RAILS UP X3/BED IN LOWEST POSITION FOR SAFETY. INSTRUCTED PATIENT ON USE OF CALL LIGHT, NEED REPETITIVE TEACHINGS DUR TO COGNITIVE STATUS. BED ALARM ACTIVATED FOR PATIENT SAFETY. NAD.
--- NOTE | 2018-10-07 22:01 | General Progress Note ---
Assessment/Plan Problem List: (1) Dementia ICD Codes: F03.90 - Unspecified dementia without behavioral disturbance SNOMED: 43100337 (2) CHF (congestive heart failure) ICD Codes: I50.9 - Heart failure, unspecified SNOMED: 79167947 (3) Vomiting ICD Codes: R11.10 - Vomiting, unspecified SNOMED: 543691379 (4) Pacemaker ICD Codes: Z95.0 - Presence of cardiac pacemaker SNOMED: 839436232 (5) Dehydration ICD Codes: E86.0 - Dehydration SNOMED: 06963594 (6) Hypothyroidism ICD Codes: E03.9 - Hypothyroidism, unspecified SNOMED: 29560110 Status: stable Assessment/Plan: no sob arrythmia pacemaker no fever chf no vomitting today reviewed chart and labs and meds Subjective ROS Limited/Unobtainable: Yes Allergies: Coded Allergies: No Known Allergies (Unverified , 10/04/18) Objective Last 24 Hour Vital Signs Date Time Temp Pulse Resp B/P (MAP) Pulse Ox O2 Delivery O2 Flow Rate FiO2 10/07/18 21:00 Room Air 10/07/18 16:00 97.6 86 20 100/67 (78) 95 10/07/18 12:00 97.7 99 18 97/59 (72) 97 10/07/18 09:00 Room Air 10/07/18 08:00 98.3 77 18 112/56 (74) 95 10/07/18 04:00 97.7 73 18 112/59 (76) 96 10/07/18 00:53 97.3 83 18 99/54 (69) 93 Intake and Output 10/06/18 10/07/18 19:00 07:00 Intake Total 360 ml Output Total 400 ml Balance -40 ml Intake Oral 360 ml Output Urine Total 400 ml # Voids 1 2 # Bowel Movements 1 Laboratory Tests 10/07/18 06:40: White Blood Count 5.2, Red Blood Count 3.97L, Hemoglobin 12.7, Hematocrit 36.5L , Mean Corpuscular Volume 92, Mean Corpuscular Hemoglobin 31.9H, Mean Corpuscular Hemoglobin Concent 34.7, Red Cell Distribution Width 11.1L, Platelet Count 180, Mean Platelet Volume 5.0L, Neutrophils (%) (Auto) 69.8, Lymphocytes (%) (Auto) 14.1L, Monocytes (%) (Auto) 10.5H, Eosinophils (%) (Auto ) 4.2H, Basophils (%) (Auto) 1.4, Sodium Level 139, Potassium Level 4.5, Chloride Level 104, Carbon Dioxide Level 28, Anion Gap 7, Blood Urea Nitrogen 7 , Creatinine 0.9, Estimat Glomerular Filtration Rate , Glucose Level 89, Calcium Level 8.4L Height (Feet): 5 Height (Inches): 7.00 Weight (Pounds): 151 Neck: supple Cardiovascular: regular rhythm Respiratory/Chest: lungs clear Abdomen: soft Jose Woodard MD October 07, 2018 22:01
[2018-10-08] VITALS: BP 116/62
--- NOTE | 2018-10-08 00:30 | NUR ---
NURSE NOTES: RESTING WELL ON ROUNDS, NO SIGNS AND SYMPTOMS OF DISTRESS.
--- NOTE | 2018-10-08 00:33 | NUR ---
HAND-OFF: Report given to HAMMAD DEL RIO. Addendum: 10/08/18 at 0037 by SHARLA DOTY LVN CHARTED IN ERROR, HAND OFF TO HAMMAD DOSHI
--- NOTE | 2018-10-08 00:35 | NUR ---
NURSE NOTES: Received report & pt from MIGUEL ANGEL Rodriguez. Pt lying in bed, asleep but easily arousable to verbal stimuli, in room air. No s/s of acute distress & no c/o pain at this time. IV site intact & S/L'd. Bed in lowest position, call light within reach. Will continue to monitor.
[2018-10-08 04:00] VITALS: BP 101/59
--- NOTE | 2018-10-08 07:30 | NUR ---
HAND-OFF: Report given to HAMMAD Stanton. Pt instable condition. Rounds done.
[2018-10-08 08:00] VITALS: BP 111/58
--- NOTE | 2018-10-08 08:00 | NUR ---
NURSE NOTES: Received report from Erica CUEVA. Patient is awake alert and oriented, no acute distress noted. IV intact, patient reporting no pain. Breakfast at bedside. Fall and seizure precautions maintained. Side rails upx3, bed low and locked, call light in reach, bed alarm armed. Will continue to monitor.
--- NOTE | 2018-10-08 08:43 | NUR ---
DISCHARGE PLANNING DISCHARGE ORDER NOTED FAXED CLINICALS TO [facility] T: [phone] F: [phone] AWAIT ACCEPTANCE AND ASSIGNED ROOM NUMBER
[2018-10-08] MEDS ORDERED: SYNTHROID25 MCG ORAL (08:49)
[2018-10-08] MEDS: carBAMazepine 200mg tab ORAL SCH (08:55)
--- NOTE | 2018-10-08 10:22 | GI Progress Note ---
Assessment/Plan Problems: (1) Dehydration ICD Codes: E86.0 - Dehydration SNOMED: 47163144 (2) Vomiting ICD Codes: R11.10 - Vomiting, unspecified SNOMED: 798504304 (3) Hyponatremia ICD Codes: E87.1 - Hypo-osmolality and hyponatremia SNOMED: 67423436 (4) Dementia ICD Codes: F03.90 - Unspecified dementia without behavioral disturbance SNOMED: 35457026 (5) Bartholin cyst ICD Codes: N75.0 - Cyst of Bartholin's gland SNOMED: 97938782 Status: stable Status Narrative Discussed with Dr. Baez Assessment/Plan neg CT No recurrent vomiting OB stool collected, pending final read okay for DC per GI standpoint Symptomatic treatment at this time Advance diet as tolerated, mech soft Zofran as needed, Reglan for persistent vomiting PPI Electrolyte correction GI procedures only if emergent Follow-up psych recommendations The patient was seen and examined at bedside and all new and available data was reviewed in the patients chart. I agree with the above findings, impression and plan. (Patient seen earlier today. Signature stamp does not reflect patient encounter time.). - Kvng Baez MD Subjective Subjective Denies any abdominal pain Denies any nausea vomiting or diarrhea Objective Last 24 Hour Vital Signs Date Time Temp Pulse Resp B/P (MAP) Pulse Ox O2 Delivery O2 Flow Rate FiO2 10/08/18 08:00 97.4 75 18 111/58 (75) 97 10/08/18 04:00 98.6 77 17 101/59 (73) 95 10/08/18 00:00 98.0 77 16 116/62 (80) 96 10/07/18 21:00 Room Air 10/07/18 20:00 97.9 79 18 111/59 (76) 96 10/07/18 16:00 97.6 86 20 100/67 (78) 95 10/07/18 12:00 97.7 99 18 97/59 (72) 97 Intake and Output 10/07/18 10/08/18 19:00 07:00 Intake Total 500 ml 120 ml Balance 500 ml 120 ml Intake Oral 500 ml 120 ml # Voids 2 1 Height (Feet): 5 Height (Inches): 7.00 Weight (Pounds): 150 General Appearance: WD/WN, no apparent distress, alert Cardiovascular: normal rate Respiratory/Chest: normal breath sounds, no respiratory distress Abdominal Exam: normal bowel sounds, non tender, soft Extremities: normal range of motion, non-tender Olaf Black NP October 08, 2018 10:22
--- NOTE | 2018-10-08 11:04 | Cardiac Electrophysiology PN ---
Assessment/Plan Assessment/Plan 1. Atrial fibrillation. The rate is currently controlled off AVN les. Off anticoagulation at this time in view of 3+ hematuria, but eventually needs to be resumed. 2. Status post [employer] pacemaker. Nl fx by tele. 3. Hyponatremia. 4. History of falls. 5. Dementia. 6. Seizure. 7. Hyperlipidemia on Lipitor DW RN Subjective Subjective No CP or SOB. DC planning in progress Objective Last 24 Hour Vital Signs Date Time Temp Pulse Resp B/P (MAP) Pulse Ox O2 Delivery O2 Flow Rate FiO2 10/08/18 09:00 Room Air 10/08/18 08:00 97.4 75 18 111/58 (75) 97 10/08/18 04:00 98.6 77 17 101/59 (73) 95 10/08/18 00:00 98.0 77 16 116/62 (80) 96 10/07/18 21:00 Room Air 10/07/18 20:00 97.9 79 18 111/59 (76) 96 10/07/18 16:00 97.6 86 20 100/67 (78) 95 10/07/18 12:00 97.7 99 18 97/59 (72) 97 Intake and Output 10/07/18 10/08/18 19:00 07:00 Intake Total 500 ml 120 ml Balance 500 ml 120 ml Intake Oral 500 ml 120 ml # Voids 2 1 Objective HEAD AND NECK: No JVD. LUNGS: Clear. CARDIOVASCULAR: Regular S1 and S2 with no gallop. 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 ABDOMEN: Soft. EXTREMITIES: No pitting edema. Tomás Negrete MD October 08, 2018 11:04
--- NOTE | 2018-10-08 11:29 | NUR ---
DISCHARGE PLANNED PATIENT WILL RETURN TO [facility] ROOM [address] [facility] T: [phone] FOR NURSE TO NURSE REPORT [facility] HAS BEEN ARRANGED FOR [address] [employer]
--- NOTE | 2018-10-08 11:34 | Nephrology Progress Note ---
Assessment/Plan Problem List: (1) Hyponatremia (2) Pacemaker (3) Dehydration (4) Dementia (5) Hypothyroidism Assessment Hyponatremia: resolved - depletional due to vomiting? improved with Saline - CHF CHF (congestive heart failure) Pacemaker Dementia HypoThyroid Plan resume tegretol ?? Sz Ds checked cortisol level 2D echo P TSH checked DC hydrate monitor lytes per consultants med surg ? DC Subjective ROS Limited/Unobtainable: No Constitutional: Reports: malaise Objective Objective Last 24 Hour Vital Signs Date Time Temp Pulse Resp B/P (MAP) Pulse Ox O2 Delivery O2 Flow Rate FiO2 10/08/18 09:00 Room Air 10/08/18 08:00 97.4 75 18 111/58 (75) 97 10/08/18 04:00 98.6 77 17 101/59 (73) 95 10/08/18 00:00 98.0 77 16 116/62 (80) 96 10/07/18 21:00 Room Air 10/07/18 20:00 97.9 79 18 111/59 (76) 96 10/07/18 16:00 97.6 86 20 100/67 (78) 95 10/07/18 12:00 97.7 99 18 97/59 (72) 97 Intake and Output 10/07/18 10/08/18 19:00 07:00 Intake Total 500 ml 120 ml Balance 500 ml 120 ml Intake Oral 500 ml 120 ml # Voids 2 1 Height (Feet): 5 Height (Inches): 7.00 Weight (Pounds): 150 General Appearance: no apparent distress Objective no change Kerwin Womack MD October 08, 2018 11:34
[2018-10-08 12:00] VITALS: BP 106/60
--- NOTE | 2018-10-08 13:30 | NUR ---
NURSE NOTES: Called and gave report to Ernestine MICHELLE at [facility].
--- NOTE | 2018-10-08 13:58 | Hematology/Onc Progress Note ---
Assessment/Plan Assessment/Plan Assessment and Recs: # DVT of the lower legs s/p IVC filter, currently at home was on xarelto --> PT/INR is wnl, continue to monitor if any procedure initiaated --> duplex re-ordered to see if has resolution of dvt --> when ready for dc, consider restart xarelto (currently with hematuria) --> cards recs reviewed # Anemia of chronic disease due to underlying chronic medical issues --> Epogen or iron at this time is not particularly indicated --> Medications have been reviewed --> low threshold for gi evaluation in case has occult + # Nausea/vomiting as per Gi --> continue to trend, zofran prn basis --> ct was negative # Pacemaker --> appreciate cards recs, interr as needed # Hyponatremia --> as per renal # CHF (congestive heart failure) --> as per cards # Dementia # Dehydration # AFib, management as per cards The timing of this note does not necessarily reflect the time of the patient was seen. Greatly appreciate consultation! Subjective Constitutional: Denies: no symptoms, chills, fever, malaise, weakness, other HEENT: Denies: no symptoms, eye pain, blurred vision, tearing, double vision, ear pain, ear discharge, nose pain, nose congestion, throat pain, throat swelling, mouth pain, mouth swelling, other Cardiovascular: Denies: no symptoms, chest pain, edema, irregular heart rate, lightheadedness, palpitations, syncope, other Respiratory: Denies: no symptoms, cough, shortness of breath, SOB with excertion, SOB at rest, sputum, wheezing, other Gastrointestinal/Abdominal: Denies: no symptoms, abdomen distended, abdominal pain, black stools, tarry stools, blood in stool, constipated, diarrhea, difficulty swallowing, nausea, poor appetite, poor fluid intake, rectal bleeding , vomiting, other Genitourinary: Denies: no symptoms, burning, discharge, frequency, flank pain, hematuria, incontinence, pain, urgency, other Neurologic/Psychiatric: Denies: no symptoms, anxiety, depressed, emotional problems, headache, numbness, paresthesia, pre-existing deficit, seizure, tingling, tremors, weakness, other Endocrine: Denies: no symptoms, excessive sweating, flushing, intolerance to cold, intolerance to heat, increased hunger, increased thirst, increased urine, unexplained weight gain, unexplained weight loss, other Allergies: Coded Allergies: No Known Allergies (Unverified , 10/04/18) Subjective 10/06: no events, no f/c, no night sweats reported, given IVFs, cbc reviewed 10/07: arousable to verbal stimuli, no evnets, no chills 10/08: no events, potential dc shortly to [facility] Objective Objective Current Medications Medications (Trade) Dose Ordered Sig/Charles Route PRN Reason Start Time Stop Time Status Last Admin Dose Admin Acetaminophen (Tylenol) 500 mg Q4H PRN ORAL Mild Pain/Temp > 100.5 10/06/18 17:00 11/03/18 16:59 Atorvastatin Calcium (Lipitor) 10 mg BEDTIME ORAL 10/06/18 21:00 11/05/18 20:59 10/07/18 21:00 Carbamazepine (TEGretol) 200 mg Q12HR ORAL 10/06/18 21:00 11/05/18 20:59 10/08/18 08:55 Levothyroxine Sodium (Synthroid) 50 mcg DAILY@0630 ORAL 10/07/18 06:30 11/06/18 06:29 10/08/18 05:39 Ondansetron HCl (Zofran) 4 mg Q6H PRN IVP Nausea & Vomiting 10/06/18 17:00 11/03/18 16:59 Last 24 Hour Vital Signs Date Time Temp Pulse Resp B/P (MAP) Pulse Ox O2 Delivery O2 Flow Rate FiO2 10/08/18 09:00 Room Air 10/08/18 08:00 97.4 75 18 111/58 (75) 97 10/08/18 04:00 98.6 77 17 101/59 (73) 95 10/08/18 00:00 98.0 77 16 116/62 (80) 96 10/07/18 21:00 Room Air 10/07/18 20:00 97.9 79 18 111/59 (76) 96 10/07/18 16:00 97.6 86 20 100/67 (78) 95 10/07/18 12:00 97.7 99 18 97/59 (72) 97 10/07/18 09:00 Room Air 10/07/18 08:00 98.3 77 18 112/56 (74) 95 10/07/18 04:00 97.7 73 18 112/59 (76) 96 10/07/18 00:53 97.3 83 18 99/54 (69) 93 10/06/18 21:00 Room Air 10/06/18 20:00 98.1 74 18 100/60 (73) 93 10/06/18 16:00 97.1 70 20 99/56 (70) 97 Intake and Output 10/07/18 10/08/18 19:00 07:00 Intake Total 500 ml 120 ml Balance 500 ml 120 ml Intake Oral 500 ml 120 ml # Voids 2 1 Labs Test 10/06/18 09:10 10/07/18 06:40 White Blood Count 5.2 K/UL (4.8-10.8) 5.2 K/UL (4.8-10.8) Red Blood Count 4.20 M/UL (4.20-5.40) 3.97 M/UL (4.20-5.40) Hemoglobin 13.3 G/DL (12.0-16.0) 12.7 G/DL (12.0-16.0) Hematocrit 38.4 % (37.0-47.0) 36.5 % (37.0-47.0) Mean Corpuscular Volume 91 FL (80-99) 92 FL (80-99) Mean Corpuscular Hemoglobin 31.7 PG (27.0-31.0) 31.9 PG (27.0-31.0) Mean Corpuscular Hemoglobin Concent 34.7 G/DL (32.0-36.0) 34.7 G/DL (32.0-36.0) Red Cell Distribution Width 11.2 % (11.6-14.8) 11.1 % (11.6-14.8) Platelet Count 194 K/UL (150-450) 180 K/UL (150-450) Mean Platelet Volume 5.4 FL (6.5-10.1) 5.0 FL (6.5-10.1) Neutrophils (%) (Auto) 72.1 % (45.0-75.0) 69.8 % (45.0-75.0) Lymphocytes (%) (Auto) 15.9 % (20.0-45.0) 14.1 % (20.0-45.0) Monocytes (%) (Auto) 9.1 % (1.0-10.0) 10.5 % (1.0-10.0) Eosinophils (%) (Auto) 2.1 % (0.0-3.0) 4.2 % (0.0-3.0) Basophils (%) (Auto) 0.9 % (0.0-2.0) 1.4 % (0.0-2.0) Sodium Level 138 MMOL/L (136-145) 139 MMOL/L (136-145) Potassium Level 4.0 MMOL/L (3.5-5.1) 4.5 MMOL/L (3.5-5.1) Chloride Level 103 MMOL/L (98-107) 104 MMOL/L (98-107) Carbon Dioxide Level 28 MMOL/L (21-32) 28 MMOL/L (21-32) Anion Gap 7 mmol/L (5-15) 7 mmol/L (5-15) Blood Urea Nitrogen 8 mg/dL (7-18) 7 mg/dL (7-18) Creatinine 0.8 MG/DL (0.55-1.30) 0.9 MG/DL (0.55-1.30) Estimat Glomerular Filtration Rate mL/min (>60) mL/min (>60) Glucose Level 88 MG/DL (74-106) 89 MG/DL (74-106) Hemoglobin A1c 5.7 % (4.3-6.0) Uric Acid 3.3 MG/DL (2.6-7.2) Calcium Level 8.7 MG/DL (8.5-10.1) 8.4 MG/DL (8.5-10.1) Phosphorus Level 3.5 MG/DL (2.5-4.9) Magnesium Level 1.8 MG/DL (1.8-2.4) Iron Level 78 ug/dL (50-175) Total Iron Binding Capacity 203 ug/dL (250-450) Percent Iron Saturation 38 % (15-50) Unsaturated Iron Binding 125 ug/dL (112-346) Total Bilirubin 0.5 MG/DL (0.2-1.0) Gamma Glutamyl Transpeptidase 54 U/L (5-85) Aspartate Amino Transf (AST/SGOT) 24 U/L (15-37) Alanine Aminotransferase (ALT/SGPT) 19 U/L (12-78) Alkaline Phosphatase 61 U/L (46-116) C-Reactive Protein, Quantitative < 0.4 mg/dL (0.00-0.90) Pro-B-Type Natriuretic Peptide 2788 pg/mL (0-125) Total Protein 6.8 G/DL (6.4-8.2) Albumin 3.1 G/DL (3.4-5.0) Globulin 3.7 g/dL Albumin/Globulin Ratio 0.8 (1.0-2.7) Triglycerides Level 71 MG/DL (30-150) Cholesterol Level 233 MG/DL (< 200) LDL Cholesterol 154 mg/dL (<100) HDL Cholesterol 54 MG/DL (40-60) Cholesterol/HDL Ratio 4.3 (3.3-4.4) Vitamin B12 Level 1026 PG/ML (193-986) Folate 11.3 NG/ML (8.6-58.9) Thyroid Stimulating Hormone (TSH) 4.226 uiU/mL (0.358-3.740) Cortisol AM Sample 10.0 UG/DL Carbamazepine (Tegretol) Level 2.2 ug/mL (4.0-12.0) Height (Feet): 5 Height (Inches): 7.00 Weight (Pounds): 150 Objective PE General Appearance: well appearing, no apparent distress, alert Head: normocephalic EENT: PERRL/EOMI, normal ENT inspection Neck: supple Respiratory: normal breath sounds, no respiratory distress Cardiovascular: normal rate Gastrointestinal: normal inspection, non tender, soft Rectal: deferred Genitourinary: no CVA tenderness Musculoskeletal: normal inspection, back normal Neurologic: normal inspection, alert, oriented x3, responsive Psychiatric: normal inspection, judgement/insight normal Skin: normal inspection, normal color, no rash, warm/dry Lymphatic: normal inspection, no adenopathy Guido Hoover MD October 08, 2018 13:58
--- NOTE | 2018-10-08 14:35 | NUR ---
NURSE NOTES: Patient discharged. No acute distress on discharge, IV removed intact. WCP taken and uploaded. Patient transferred safely onto [facility] [place]. All belongings given to EMS personnel. Patient taken off unit at 1434.
--- NOTE | 2018-10-09 09:46 | Discharge Summary ---
Discharge Summary Discharge Summary _ DATE OF ADMISSION: 10/04/2018 DATE OF DISCHARGE: 10/08/2018 DISCHARGED BY: Dr. Jose Weeks CONSULTANTS: Dr. Guido Baez [facility] COURSE: Patient is a 73-year-old female, who presented to ED after increased vomiting at the nursing facility, patient reportedly had multiple episodes of nonbloody emesis. She has history of dementia and history was limited. Patient denied fever. She denied abdominal pain. She has medical history significant for organic brain syndrome, CHF, anemia, hypothyroidism, Bartholin cyst, chronic pain syndrome, hypertension and atrial fibrillation. On evaluation at the ED, vital signs were stable. Blood work did not show any leukocytosis. Hemoglobin and hematocrit were stable. Sodium was noted to be low at 130. Kidney function was normal. CT of the abdomen and pelvis with contrast showed a left prominent ovary for age. Suspected left Bartholin's gland cyst. Pacemaker. Atherosclerotic disease and IVC filter. While at the ED, she underwent incision and drainage of the Bartholin's cyst. She was given IV hydration. She was then admitted for evaluation of vomiting, and hyponatremia. GI was consulted. Patient was given symptomatic treatment. She denied any history of endoscopic procedures. Diet was advanced as tolerated. She was given Zofran. Package Lift Operator was consulted. Patient has atrial fibrillation, with rate controlled. Patient had a Medtronic pacemaker that showed normal function by telemetry. Lipid panel showed cholesterol of 230, LDL 150. She was given Lipitor. Aircraft Maintenance Instructor was consulted. Hyponatremia was possibly depletional, and improved with saline. Cortisol level was normal. TSH was 4.2. Patient was status post IVC filter placement due to DVT and [facility] Re-imaging /venous duplex of bilateral legs were negative for acute DVT. Anemia work-up showed anemia of chronic disease. Epogen or iron was not indicated. She had no recurrent vomiting. She was tolerating diet. Sodium levels normalized. [facility] FINAL DIAGNOSES: Hyponatremia Left Bartholin's cyst status post I&D Atrial fibrillation Status post Medtronic pacemaker with normal function History of DVT status post IVC filter placement Hyponatremia Falls Dementia Seizure disorder Anemia of chronic disease Nausea and vomiting Dehydration Hyperlipidemia DISPOSITION: Patient was discharged to a SNF. DISCHARGE MEDICATIONS: Refer to Discharge Medication List. I have been assigned to complete a discharge summary on this account, I was not involved with the patient's management. Ana Juan NP October 09, 2018 09:46
--- NOTE | 2018-10-09 11:05 | NUR ---
*-* INSURANCE *-* DISCHARGE SUMMARY HAVE BEEN FAXED TO: ANGELIC SHAW# [id number] PLEASE FAX THE REVIEW/CLINICAL P- [phone] F- [phone]
--- NOTE | 2018-10-15 19:48 | Diagnostic Imaging Report ---
APPROVED REPORT CPT Code: 62504 Present Symptoms Comments: Screening BILATERAL: Imaging reveals a patent deep venous system bilaterally. There is no evidence of thrombus within the common femoral, superficial femoral, popliteal or tibial segments. The greater saphenous veins are within normal limits. Doppler indicates normal spontaneous flow within these segments.
--- NOTE | 2018-12-04 12:22 | Cardiology Report ---
APPROVED REPORT EKG Measurement Heart [id number] Atrial fibrillation Nonspecific ST and T wave abnormality Abnormal ECG
== END 2018-10-08 14:36 | DRG 426 ==
LOC: EDBD 16:10 → EDUNIT# 16:10 → EMR 16:21 → 2E 18:05 → EDBEDREQ 20:10 → 2E 22:02 → 3E 10-06 16:41
PROC: 0U9LXZZ Drainage of Vestibular Gland, External Approach (ICD-10-PCS; principal; 2018-10-04)
DX: E87.1 Hypo-osmolality and hyponatremia (principal); I48.91 Unspecified atrial fibrillation; I50.9 Heart failure, unspecified; D63.8 Anemia in other chronic diseases classified elsewhere; E86.0 Dehydration; E03.9 Hypothyroidism, unspecified; E78.5 Hyperlipidemia, unspecified; F03.90 Unspecified dementia, unspecified severity, without behavioral disturbance, psychotic disturbance, mood disturbance, and anxiety; F09 Unspecified mental disorder due to known physiological condition; N75.0 Cyst of Bartholin's gland; R11.2 Nausea with vomiting, unspecified; Z95.0 Presence of cardiac pacemaker; Z86.718 Personal history of other venous thrombosis and embolism; Z79.01 Long term (current) use of anticoagulants; Z95.828 Presence of other vascular implants and grafts; G89.4 Chronic pain syndrome; R10.9 Unspecified abdominal pain; Z91.81 History of falling; F17.200 Nicotine dependence, unspecified, uncomplicated; I10 Essential (primary) hypertension; G40.909 Epilepsy, unspecified, not intractable, without status epilepticus
CPT/HCPCS: 36415; 74177; 80048; 80053; 80061; 80156; 81003; 82533; 82607; 82728; 82746; 82977; 83036; 83540; 83550; 83690; 83735; 83880; 84100; 84443; 84484; 84550; 85025; 85610; 85730; 86140; 86850; 86900; 86901; 87081; 93005; 93970; 96374; 99285; J2405

== ENCOUNTER 2019-10-30 15:53 | Emergency (ER) | payer MEDICARE, OTHER ==
[~2019-10-30] VITALS: Ht 160 cm; Wt 59.0 kg
[~2019-10-30 15:53] MED LIST: CRANBERRY400 MG PO; LEVOTHYROXINE100 MC1 PO; METOPROLOL SUCC25 MG ORAL; NEURONTIN100 MG GT; SYNTHROID25 MCG ORAL; TEGRETOL200 MG PO; XARELTO10 MG GT
--- NOTE | 2019-10-30 16:05 | Emergency Room Report ---
History of Present Illness General Chief Complaint: Altered Level of Consciousness Source: Medical Record, EMS Present Illness HPI Patient is a 74-year-old female multiple medical history including atrial fibrillation, dementia, seizure disorder, schizophrenia, hypothyroidism, CHF who was brought in by EMS from her extended care facility for altered mental status. Patient is usually much more awake alert and interactive. There is concern for possible seizure earlier today that was unwitnessed. Patient is not responsive to my questioning therefore history is limited at this time. Allergies: Coded Allergies: No Known Allergies (Unverified , 10/04/18) Patient History Reviewed Nursing Documentation: PMH: Agreed; PSxH: Agreed Nursing Documentation-PMH Hx Cardiac Problems: Yes - A-Fib, hypothyroidism Hx Hypertension: Yes Hx Pacemaker: Yes Hx Diabetes: Yes Hx Cancer: No Hx Gastrointestinal Problems: Yes - Failure to thrive Hx Neurological Problems: Yes - Arthritis Hx Dementia: Yes Hx Seizures: Yes Review of Systems All Other Systems: limited Physical Exam Sp02 EP Interpretation: reviewed, normal - on 2L NC General Appearance: mild distress, Chronically Ill Head: normocephalic, atraumatic Eyes: bilateral eye normal inspection, bilateral eye PERRL ENT: hearing grossly normal, normal pharynx, no angioedema, normal voice Neck: full range of motion, supple/symm/no masses Respiratory: respiratory distress Cardiovascular #1: irregularly irregular Cardiovascular #2: 2+ carotid (R), 2+ carotid (L) Gastrointestinal: normal bowel sounds, non tender, soft, non-distended, no guarding, no rebound Rectal: deferred Musculoskeletal: no calf tenderness Skin: no rash Lymphatic: no adenopathy Procedures Critical Care Time Critical Care Time Total critical care time: Approximately 35 minutes. Due to a high probability of clinically significant, life threatening deterioration, the patient required my highest level of preparedness to intervene emergently and I personally spent this critical care time directly and personally managing the patient. This critical care time included obtaining a history; examining the patient; pulse oximetry; ordering and review of studies; arranging urgent treatment with development of a management plan; evaluation of patient's response to treatment ; frequent reassessment; and, discussions with other providers.This critical care time was performed to assess and manage the high probability of imminent, life-threatening deterioration that could result in multi-organ failure. It was exclusive of separately billable procedures and treating other patients and teaching time. Please see MDM section and the rest of the note for further information on patient assessment and treatment. Medical Decision Making Diagnostic Impression: Primary Impression: Sepsis Additional Impressions: Pneumonia CHF (congestive heart failure) ER Course Patient not given 30cc/kg of IVF for sepsis due to CHF and pulmonary edema and risk of respiratory failure. Patient's BNP is almost 5000. Patient has been pancultured. Patient started on vancomycin as well as cefepime. Patient given Tylenol for her fever. Her vital signs have been stable throughout her ER stay. COVID-19 PCR swab has been sent. UA is pending at the time of admission. Laboratory Tests Test 10/30/19 15:57 10/30/19 16:00 10/30/19 17:15 Arterial Blood pH 7.471 (7.350-7.450) Arterial Blood Partial Pressure CO2 37.3 mmHg (35.0-45.0) Arterial Blood Partial Pressure O2 135.1 mmHg (75.0-100.0) H Arterial Blood HCO3 26.6 mmol/L (22.0-26.0) H Arterial Blood Oxygen Saturation 98.4 % (95-100) Arterial Blood Base Excess 3.0 (-2-2) H Joss Test Positive D-Dimer Pending Lactic Acid Level 2.30 mmol/L (0.4-2.0) H White Blood Count 3.5 K/UL (4.8-10.8) L Red Blood Count 3.80 M/UL (4.20-5.40) L Hemoglobin 12.8 G/DL (12.0-16.0) Hematocrit 36.8 % (37.0-47.0) L Mean Corpuscular Volume 97 FL (80-99) Mean Corpuscular Hemoglobin 33.6 PG (27.0-31.0) H Mean Corpuscular Hemoglobin Concent 34.7 G/DL (32.0-36.0) Red Cell Distribution Width 12.2 % (11.6-14.8) Platelet Count 112 K/UL (150-450) L Mean Platelet Volume 7.4 FL (6.5-10.1) Neutrophils (%) (Auto) 59.6 % (45.0-75.0) Lymphocytes (%) (Auto) 24.7 % (20.0-45.0) Monocytes (%) (Auto) 14.8 % (1.0-10.0) H Eosinophils (%) (Auto) 0.3 % (0.0-3.0) Basophils (%) (Auto) 0.6 % (0.0-2.0) Sodium Level 138 MMOL/L (136-145) Potassium Level 4.2 MMOL/L (3.5-5.1) Chloride Level 101 MMOL/L (98-107) Carbon Dioxide Level 27 MMOL/L (21-32) Anion Gap 10 mmol/L (5-15) Blood Urea Nitrogen 20 mg/dL (7-18) H Creatinine 1.1 MG/DL (0.55-1.30) Estimated Glomerular Filtration Rate 48.5 mL/min (>60) Glucose Level 105 MG/DL (74-106) Calcium Level 8.0 MG/DL (8.5-10.1) L Magnesium Level 1.8 MG/DL (1.8-2.4) Total Bilirubin 0.4 MG/DL (0.2-1.0) Aspartate Amino Transferase (AST) 31 U/L (15-37) Alanine Aminotransferase (ALT) 15 U/L (12-78) Alkaline Phosphatase 51 U/L (46-116) Total Creatine Kinase 84 U/L (26-308) Troponin I 0.006 ng/mL (0.000-0.056) Pro-B-Type Natriuretic Peptide 4941 pg/mL (0-125) H Total Protein 7.3 G/DL (6.4-8.2) Albumin 2.7 G/DL (3.4-5.0) L Globulin 4.6 g/dL Albumin/Globulin Ratio 0.6 (1.0-2.7) L EKG Diagnostic Results EKG Time: 16:24 EP Interpretation: MD Woodrow Rate: normal Rhythm: other - afib ST Segments: no acute changes ASA given to the pt in ED: No Rhythm Strip Diag. Results Rhythm Strip Time: 16:19 EP Interpretation: yes - Ariela Troy MD Rate: 85 Rhythm: no PVC's, no ectopy, other - afib Chest X-Ray Diagnostic Results Chest X-Ray Diagnostic Results : Chest X-Ray Ordered: Yes # of Views/Limited/Complete: 1 View Indication: Other - ams EP Interpretation: Yes Interpretation: no pneumothorax, other - cardiomegaly, LLL opacity Impression: Other - pneumonia Electronically Signed by: Ariela Troy MD Disposition: ADMITTED INPATIENT - Telemetry Condition: Critical Physician Consult: Dr. Light at 1800 Sepsis Event Note Evaluation Current Stage of Sepsis: Sepsis Possible Source: Pulmonary Focused Exam Allergies: Coded Allergies: No Known Allergies (Unverified , 10/04/18) Date Exam Occurred: Oct 30, 2019 Time Exam Occurred: 17:56 Laboratory Studies Laboratory Tests Test 10/30/19 15:57 10/30/19 16:00 10/30/19 17:15 Arterial Blood pH 7.471 (7.350-7.450) Arterial Blood Partial Pressure CO2 37.3 mmHg (35.0-45.0) Arterial Blood Partial Pressure O2 135.1 mmHg (75.0-100.0) H Arterial Blood HCO3 26.6 mmol/L (22.0-26.0) H Arterial Blood Oxygen Saturation 98.4 % (95-100) Arterial Blood Base Excess 3.0 (-2-2) H Joss Test Positive D-Dimer Pending Lactic Acid Level 2.30 mmol/L (0.4-2.0) H White Blood Count Pending Red Blood Count Pending Hemoglobin Pending Hematocrit Pending Mean Corpuscular Volume Pending Mean Corpuscular Hemoglobin Pending Mean Corpuscular Hemoglobin Concent Pending Red Cell Distribution Width Pending Platelet Count Pending Mean Platelet Volume Pending Neutrophils (%) (Auto) Pending Lymphocytes (%) (Auto) Pending Monocytes (%) (Auto) Pending Eosinophils (%) (Auto) Pending Basophils (%) (Auto) Pending Sodium Level 138 MMOL/L (136-145) Potassium Level 4.2 MMOL/L (3.5-5.1) Chloride Level 101 MMOL/L (98-107) Carbon Dioxide Level 27 MMOL/L (21-32) Anion Gap 10 mmol/L (5-15) Blood Urea Nitrogen 20 mg/dL (7-18) H Creatinine 1.1 MG/DL (0.55-1.30) Estimat Glomerular Filtration Rate 48.5 mL/min (>60) Glucose Level 105 MG/DL (74-106) Calcium Level 8.0 MG/DL (8.5-10.1) L Magnesium Level Pending Total Bilirubin Pending Aspartate Amino Transf (AST/SGOT) Pending Alanine Aminotransferase (ALT/SGPT) Pending Alkaline Phosphatase Pending Total Creatine Kinase Pending Troponin I Pending Pro-B-Type Natriuretic Peptide Pending Total Protein Pending Albumin Pending Globulin Pending Vital Signs Last 24 Hour Vital Signs Date Time Temp Pulse Resp B/P (MAP) Pulse Ox O2 Delivery O2 Flow Rate FiO2 10/30/19 16:06 69 24 Nasal Cannula 3.0 10/30/19 16:06 97.9 87 22 113/65 99 Nasal Cannula 3.0 10/30/19 15:56 97.9 69 24 113/65 (81) 99 Nasal Cannula 3.0 Respiratory Exam: Rhonchi Cardiovascular Exam: Iregularly Irregular Capillary Refill: Less Than 2 Seconds Peripheral Pulse: Ariela Joyner M.D. Oct 30, 2019 16:05
[2019-10-30 16:06] VITALS: BP 113/65
--- NOTE | 2019-10-30 16:06 | NUR ---
ED Nurse Note: Pt from [facility] and brought in by ambulance due to being more altered than usual since 11am this morning. Pt is normally AAO x2. PT is awake bu tnon verbal, unable to follow commands. Mild SOB and expiratory wheezing noted. Sats 95-100 % with o2 nasal cannula at 2-3LPM.
[2019-10-30] MEDS ORDERED: FLEET ENEMA133 ML RECTAL (16:13)
[2019-10-30] MEDS ORDERED: COLACE100 MG GT (16:13)
[2019-10-30] MEDS ORDERED: DEPAKOTE ER250 MG GT (16:13)
[2019-10-30] MEDS ORDERED: RISPERDAL1 MG PO (16:13)
[2019-10-30] MEDS ORDERED: CRANBERRY450 M4 PO (16:13)
[2019-10-30] MEDS ORDERED: CELEXA20 MG GT (16:13)
[2019-10-30] MEDS ORDERED: MILK OF MA400 MG/51 ORAL (16:13)
[2019-10-30] MEDS ORDERED: TEGRETOL200 MG PO (16:13)
[2019-10-30] MEDS ORDERED: FERROUS SULFAT325 MG GT (16:13)
[2019-10-30] MEDS ORDERED: BISACODYL10 M1 RC (16:13)
--- NOTE | 2019-10-30 16:32 | Diagnostic Imaging Report ---
EXAM: CT Head Without Intravenous Contrast CLINICAL HISTORY: AMS TECHNIQUE: Axial computed tomography images of the head/brain without intravenous contrast. CTDI is 53.4 mGy and DLP is 1018.8 mGy-cm. One or more of the following dose reduction techniques were used: automated exposure control, adjustment of the mA and/or kV according to patient size, use of iterative reconstruction technique. COMPARISON: CT head on 11/18/2009 FINDINGS: Brain: No acute infarct or hemorrhage identified. No extra-axial fluid collection. No mass effect or midline shift. Increased areas of hypoattenuation in the supratentorial white matter likely represent chronic small vessel ischemic changes. Small remote lacunar infarct in the right thalamus. Small remote lacunar infarct in the right basal ganglia/external capsule. Ventricles and sulci: Increased prominence of the ventricles and sulci is likely secondary to cerebral volume loss. Bones: Normal. No bony lesion or fracture. Subcutaneous tissues: Normal. Sinuses: Normal. No air-fluid levels or mucosal thickening. Mastoid air cells: Normal. Orbits: Grossly unremarkable. Other: Atherosclerotic calcifications in the intracranial vasculature. Cerumen in the external auditory canals. IMPRESSION: 1. No acute intracranial abnormality. 2. Increased chronic small vessel ischemic changes and cerebral volume loss.
--- NOTE | 2019-10-30 16:40 | Diagnostic Imaging Report ---
EXAM: XR Chest, 1 View CLINICAL HISTORY: AMS TECHNIQUE: Frontal view of the chest. COMPARISON: None FINDINGS: Hardware: None. Lungs/pleura: Hyperinflation of the lungs. Left basilar opacity may represent atelectasis versus pneumonia with possible small pleural effusion. Heart/mediastinum: Mild enlargement of the cardiac silhouette. Left sided pacemaker. Soft tissues: Unremarkable. Bones: No acute fracture. Upper abdomen: Normal. IMPRESSION: Left basilar opacity may represent atelectasis versus pneumonia/aspiration with possible small pleural effusion.
[2019-10-30] MEDS ORDERED: Piperacillin/Tazobactam 3.375 GM in NS 110 ML IVPB ONE (17:00)
[2019-10-30] MEDS ORDERED: Vancomycin 1 GM in NS 275 ML IVPB ONE (17:00)
--- NOTE | 2019-10-30 17:13 | NUR ---
ED Nurse Note: Multiple RNs tried to establish IV access but unable to insert at this time. Dr Troy is okay to insert IV on the foot. ERMD also notified of arreola catheter not being abke to be inserted.
[2019-10-30] MEDS ORDERED: Cefepime HCl 2 GM in D5W 55 ML IVPB ONE (17:30)
--- NOTE | 2019-10-30 17:30 | NUR ---
ED Nurse Note: Collected blood specimen, MRSA/VRE/CRE and covid19 swab then sent to lab.
--- NOTE | 2019-10-30 17:32 | NUR ---
ED Nurse Note: Rectal temp of 101.[address] Gerardo was notified.
[2019-10-30] MEDS ORDERED: Acetaminophen 650 MG SUPP RECTAL ONE (17:45)
[2019-10-30 17:48] LABS: ANION GAP 10 mmol/L (5-15); BLOOD UREA NITROGEN 20 mg/dL (7-18); CARBON DIOXIDE 27 MMOL/L (21-32); CHLORIDE 101 MMOL/L (98-107); CREATININE 1.1 MG/DL (0.55-1.30); POTASSIUM 4.2 MMOL/L (3.5-5.1); SODIUM 138 MMOL/L (136-145)
[2019-10-30 17:58] LABS: BASOPHILS % (AUTO) 0.6 % (0.0-2.0); EOSINOPHILS % (AUTO) 0.3 % (0.0-3.0); HEMATOCRIT 36.8 % (37.0-47.0); HEMOGLOBIN 12.8 G/DL (12.0-16.0); LYMPHOCYTES % (AUTO) 24.7 % (20.0-45.0); MEAN CORPUSCULAR VOLUME 97 FL (80-99); MONOCYTES % (AUTO) 14.8 % (1.0-10.0); NEUTROPHILS % (AUTO) 59.6 % (45.0-75.0); PLATELET COUNT 112 K/UL (150-450); RED CELL DISTRIBUTION WIDTH 12.2 % (11.6-14.8); WHITE BLOOD COUNT 3.5 K/UL (4.8-10.8)
[2019-10-30 17:59] LABS: ALANINE AMINOTRANSFERASE 15 U/L (12-78); ALBUMIN 2.7 G/DL (3.4-5.0); ALBUMIN/GLOBULIN RATIO 0.6 (1.0-2.7); ALKALINE PHOSPHATASE 51 U/L (46-116); ASPARTATE AMINO TRANSFERASE 31 U/L (15-37); BILIRUBIN,TOTAL 0.4 MG/DL (0.2-1.0); CREATINE KINASE 84 U/L (26-308)
[2019-10-30 18:02] VITALS: BP 102/63
--- NOTE | 2019-10-30 18:20 | NUR ---
ED Nurse Note: Repeat lactic acid specimen sent.
--- NOTE | 2019-10-30 19:15 | NUR ---
ED Nurse Note: Report given to Niko CUEVA.
--- NOTE | 2019-10-30 19:15 | NUR ---
ED Nurse Note: RECEIVED REPORT FROM MERYL CUEVA.
--- NOTE | 2019-10-30 19:21 | NUR ---
HAND-OFF: Report given to Gatito Saleh RN.
[2019-10-30 19:38] VITALS: BP 103/66
--- NOTE | 2019-10-30 19:42 | NUR ---
ED Nurse Note: PATIENT IS NOT PRODUCING URINE AT THIS TIME. WILL ATTEMPT TO COLLECT AT A LATER TIME.
[2019-10-30 20:30] VITALS: BP 109/53
--- NOTE | 2019-10-30 20:42 | NUR ---
ED Nurse Note: report given to Rika CUEVA with [facility]
[2019-10-30 21:05] VITALS: BP 109/53
--- NOTE | 2019-10-30 21:05 | NUR ---
TRANSFER TO FLOOR: Patient transferred to [facility] AT [facility] as ordered, per dr. Chong . Report given to Niko CUEVA at [place] and Rika CUEVA with [facility]. Belongings sent with patient.
== END 2019-10-30 21:05 | disposition short-term general hospital (02) ==
LOC: EDBD 15:53 → EMR 16:29
DX: A41.9 Sepsis, unspecified organism (principal); J18.9 Pneumonia, unspecified organism; I11.0 Hypertensive heart disease with heart failure; I50.9 Heart failure, unspecified; Z95.0 Presence of cardiac pacemaker; M19.90 Unspecified osteoarthritis, unspecified site; F03.90 Unspecified dementia, unspecified severity, without behavioral disturbance, psychotic disturbance, mood disturbance, and anxiety; G40.909 Epilepsy, unspecified, not intractable, without status epilepticus; E11.9 Type 2 diabetes mellitus without complications; F20.9 Schizophrenia, unspecified; E03.9 Hypothyroidism, unspecified; R50.9 Fever, unspecified; I48.91 Unspecified atrial fibrillation; I51.7 Cardiomegaly
CPT/HCPCS: 36600; 70450; 71045; 80053; 82550; 82803; 83605; 83735; 83880; 84484; 85025; 85379; 87040; 87081; 93005; 96365; 96367; 99291; J3370; J7040; J7050; 36415; 86850; 86900; 86901

== ENCOUNTER 2019-11-20 14:28 | Inpatient (IN) | payer MEDICARE, OTHER ==
[~2019-11-20] VITALS: Ht 162.6 cm; Wt 69.9 kg
[~2019-11-20 14:28] MED LIST changes: +BISACODYL10 M1 RC; +CELEXA20 MG GT; +COLACE100 MG GT; +CRANBERRY450 M4 PO; +DEPAKOTE ER250 MG GT; +FERROUS SULFAT325 MG GT; +FLEET ENEMA133 ML RECTAL; +MILK OF MA400 MG/51 ORAL; +RISPERDAL1 MG PO
[2019-11-20] MEDS ORDERED: ceFAZolin sod 1 GM in NS 55 ML IVPB ONE (14:45)
[2019-11-20] MEDS ORDERED: SYNTHROID25 MCG GT (14:54)
[2019-11-20] MEDS ORDERED: ACETAMINOPHEN325 M1 GT (14:54)
[2019-11-20] MEDS ORDERED: TEGRETOL200 MG GT (14:54)
[2019-11-20] MEDS ORDERED: MILK OF MA400 MG/51 GT (14:54)
[2019-11-20] MEDS ORDERED: ZINC50 M1 GT (14:54)
[2019-11-20] MEDS ORDERED: RISPERDAL1 MG GT (14:54)
[2019-11-20] MEDS ORDERED: TYLENOL EXTRA500 MG GT (14:54)
[2019-11-20] MEDS ORDERED: ASCORBIC ACID500 MG GT (14:54)
[2019-11-20] MEDS ORDERED: METOPROLOL TART25 MG GT (14:54)
--- NOTE | 2019-11-20 15:39 | Diagnostic Imaging Report ---
EXAM: XR Abdomen, 1 view CLINICAL HISTORY: TUBE PLCMT TECHNIQUE: Frontal view of the abdomen/pelvis. COMPARISON: CT abdomen and pelvis dated 10/04/18 FINDINGS: Lower thorax: Cardiac pacer leads in the right atrium and right ventricle. Intraperitoneal space: No free air. Gastrointestinal tract: Unremarkable. Unremarkable bowel gas pattern. No abnormal distention of large or small bowel loops. No luminal air fluid levels. No evidence of pneumatosis intestinalis. Bones/joints: Unremarkable. Vasculature: IVC filter again noted, with unchanged positioning compared to the prior CT exam. Filter struts extend both cephalad and caudad. Tubes, lines and devices: Percutaneous gastrostomy tube balloon and tip in the gastric body. Oral contrast introduced via the tubing is located within the gastric lumen without evidence of extravasation. IMPRESSION: Percutaneous gastrostomy tube balloon and tip in the gastric body. Oral contrast introduced via the tubing is located within the gastric lumen without evidence of extravasation.
[2019-11-20 16:00] LABS: INR 1.1 (0.9-1.1)
--- NOTE | 2019-11-20 16:00 | NUR ---
ED Nurse Note:pt. was BIBA from SNF with leaking infected GT site, pt. is A/Ox1-2, skin is intact with perianal redness, pt. had bowel movement- incontinent, blood was sent to labs, given iv meds and fluids, there is redness around GT site, KUB done
[2019-11-20 16:02] LABS: ANION GAP 6 mmol/L (5-15); BLOOD UREA NITROGEN 19 mg/dL (7-18); CALCIUM 8.5 MG/DL (8.5-10.1); CARBON DIOXIDE 30 MMOL/L (21-32); CHLORIDE 100 MMOL/L (98-107); POTASSIUM 4.7 MMOL/L (3.5-5.1); SODIUM 136 MMOL/L (136-145)
[2019-11-20 16:06] VITALS: BP 98/65
[2019-11-20 16:06] LABS: ALANINE AMINOTRANSFERASE 18 U/L (12-78); ALBUMIN 2.7 G/DL (3.4-5.0); ALBUMIN/GLOBULIN RATIO 0.5 (1.0-2.7); ALKALINE PHOSPHATASE 65 U/L (46-116); ASPARTATE AMINO TRANSFERASE 28 U/L (15-37); BILIRUBIN,TOTAL 0.3 MG/DL (0.2-1.0)
[2019-11-20 16:08] LABS: BASOPHILS % (AUTO) 1.6 % (0.0-2.0); EOSINOPHILS % (AUTO) 1.2 % (0.0-3.0); HEMATOCRIT 29.8 % (37.0-47.0); HEMOGLOBIN 9.9 G/DL (12.0-16.0); LYMPHOCYTES % (AUTO) 11.7 % (20.0-45.0); MEAN CORPUSCULAR VOLUME 96 FL (80-99); MONOCYTES % (AUTO) 12.5 % (1.0-10.0); NEUTROPHILS % (AUTO) 72.9 % (45.0-75.0); PLATELET COUNT 289 K/UL (150-450); RED BLOOD COUNT 3.09 M/UL (4.20-5.40); RED CELL DISTRIBUTION WIDTH 14.1 % (11.6-14.8); WHITE BLOOD COUNT 6.6 K/UL (4.8-10.8)
--- NOTE | 2019-11-20 16:35 | Emergency Room Report ---
History of Present Illness General Chief Complaint: Malfunctioning Gastric Tube Source: Patient, Medical Record, EMS Present Illness HPI Patient is a 74-year-old female sent in from facility for malfunctioning G- tube. Reportedly patient had been having increased drainage from G-tube site. Had previously tested positive for coronavirus. 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 COVID-19 Screening: Positive COVID-19 COVID-19 Testing Source: 10/29/19 Patient History Past Medical History: see triage record Reviewed Nursing Documentation: PMH: Agreed; PSxH: Agreed Nursing Documentation-PMH Past Medical History: No History, Except For Hx Cardiac Problems: Yes - A-Fib, hypothyroidism Hx Hypertension: Yes Hx Pacemaker: Yes Hx Diabetes: Yes Hx Cancer: No Hx Gastrointestinal Problems: Yes - Failure to thrive Hx Neurological Problems: Yes - Arthritis Hx Dementia: Yes Hx Seizures: Yes Review of Systems All Other Systems: negative except mentioned in HPI Physical Exam Vital Signs Date Time Temp Pulse Resp B/P (MAP) Pulse Ox O2 Delivery O2 Flow Rate FiO2 11/20/19 14:29 98.1 80 16 98/65 (76) 93 Nasal Cannula 2.0 Sp02 EP Interpretation: reviewed, normal General Appearance: normal inspection, well appearing, no apparent distress, alert Head: atraumatic ENT: normal ENT inspection, hearing grossly normal, normal voice Neck: normal inspection, full range of motion, supple, no bony tend Respiratory: normal inspection, lungs clear, normal breath sounds, no respiratory distress, no retraction, no wheezing Cardiovascular #1: regular rate, rhythm, no edema Gastrointestinal: normal inspection, normal bowel sounds, non tender, soft, no guarding, no hernia Genitourinary: no CVA tenderness Musculoskeletal: normal inspection, back normal, normal range of motion Neurologic: alert, responsive, speech normal, normal inspection Psychiatric: normal inspection, judgement/insight normal, mood/affect normal Medical Decision Making Diagnostic Impression: Primary Impression: Malfunction of percutaneous endoscopic gastrostomy (PEG) tube Additional Impression: Dehydration ER Course Patient presented for G-tube malfunctioning. Differential diagnosis include was not limited to cellulitis, obstruction, tube malfunction among others. Because of complexity of patient's case laboratory tests and imaging studies were ordered.patient had been noted to have increased drainage from her G-tube site. This appears to be leaking of fluid from the stoma. tube was adjusted prior to imaging and subsequent KUB with Gastrografin was read by radiology as having no leakage of contrast. Dr. Jose Weeks was contacted for inpatient observation. Laboratory Tests Test 11/20/19 15:00 11/20/19 16:00 Prothrombin Time 11.9 SEC (9.30-11.50) H Prothrombin Time INR 1.1 (0.9-1.1) Activated Partial Thromboplast Time 26 SEC (23-33) Sodium Level 136 MMOL/L (136-145) Potassium Level 4.7 MMOL/L (3.5-5.1) Chloride Level 100 MMOL/L (98-107) Carbon Dioxide Level 30 MMOL/L (21-32) Anion Gap 6 mmol/L (5-15) Blood Urea Nitrogen 19 mg/dL (7-18) H Creatinine 1.0 MG/DL (0.55-1.30) Estimated Glomerular Filtration Rate 54.2 mL/min (>60) Glucose Level 86 MG/DL (74-106) Calcium Level 8.5 MG/DL (8.5-10.1) Total Bilirubin 0.3 MG/DL (0.2-1.0) Aspartate Amino Transferase (AST) 28 U/L (15-37) Alanine Aminotransferase (ALT) 18 U/L (12-78) Alkaline Phosphatase 65 U/L (46-116) Troponin I 0.003 ng/mL (0.000-0.056) Total Protein 8.0 G/DL (6.4-8.2) Albumin 2.7 G/DL (3.4-5.0) L Globulin 5.3 g/dL Albumin/Globulin Ratio 0.5 (1.0-2.7) L White Blood Count 6.6 K/UL (4.8-10.8) Red Blood Count 3.09 M/UL (4.20-5.40) L Hemoglobin 9.9 G/DL (12.0-16.0) L Hematocrit 29.8 % (37.0-47.0) L Mean Corpuscular Volume 96 FL (80-99) Mean Corpuscular Hemoglobin 32.2 PG (27.0-31.0) H Mean Corpuscular Hemoglobin Concent 33.4 G/DL (32.0-36.0) Red Cell Distribution Width 14.1 % (11.6-14.8) Platelet Count 289 K/UL (150-450) Mean Platelet Volume 6.1 FL (6.5-10.1) L Neutrophils (%) (Auto) 72.9 % (45.0-75.0) Lymphocytes (%) (Auto) 11.7 % (20.0-45.0) L Monocytes (%) (Auto) 12.5 % (1.0-10.0) H Eosinophils (%) (Auto) 1.2 % (0.0-3.0) Basophils (%) (Auto) 1.6 % (0.0-2.0) Phosphorus Level Magnesium Level Iron Level Total Iron Binding Capacity Percent Iron Saturation Unsaturated Iron Binding Ferritin C-Reactive Protein, Quantitative Vitamin B12 Level Folate Thyroid Stimulating Hormone (TSH) Valproic Acid Level Stool Occult Blood Last Vital Signs Date Time Temp Pulse Resp B/P (MAP) Pulse Ox O2 Delivery O2 Flow Rate FiO2 11/20/19 16:06 98.1 98 16 98/65 93 Nasal Cannula 4.0 Status: improved Disposition: PLACE IN OBSERVATION Condition: Stable Referrals: Jose Woodard MD (PCP) Giorgio Renee MD Nov 20, 2019 16:35
--- NOTE | 2019-11-20 17:03 | NUR ---
ED Nurse Note:VRE MRSA swabs were done, pt. is on isolation for covid positive on 10/29/19
[2019-11-20 17:09] VITALS: BP 95/64
[2019-11-20 17:32] VITALS: BP 110/68
--- NOTE | 2019-11-20 17:44 | NUR ---
ED Nurse Note:called report to [facility] east- given to RN, pt.is stable for transfer
--- NOTE | 2019-11-20 18:28 | NUR ---
NURSE NOTES: I received telephone report from JAMESON Pal RN; patient alert x1, confused and forgetful; on nasal cannula 3 liters, no sing of shortness of breath, no sing of distress; no sing of chest pain; IV Left For-arm; G-tube noted and redness around the g-tube; perineal redness noted; side rails padded for siezure percussion and up x2,breaks engaged, bed at lowest position, bed alarm on, head of the bed elevated for aspiration percussion; call light within reach; will keep monitoring.
[2019-11-20 18:36] VITALS: BP 91/51
--- NOTE | 2019-11-20 18:44 | NUR ---
NURSE NOTES: I called [facility] to get SCD and Feeding Pump; no body answers the phone; will keep trying;
[2019-11-20] MEDS ORDERED: Acetaminophen 500mg (ES) tab ORAL PRN (18:45)
[2019-11-20] MEDS ORDERED: Fleet's Enema 133ml RECTAL PRN (18:45)
[2019-11-20] MEDS ORDERED: Acetaminophen 650mg/20.3ml GT PRN ×4 (19:00→23:21)
--- NOTE | 2019-11-20 19:27 | NUR ---
NURSE NOTES: I called to [facility] and spoke with Olinda Tarn,Knitting Machine Operator regarding the missing paper works; and Olinda Tran, Knitting Machine Operator alissa fax the patient's paper works to us; waiting for paper works;
--- NOTE | 2019-11-20 19:29 | NUR ---
HAND-OFF: Report given to HAMMAD Gandara. Endorsed to the incoming nurse that RN tried to call [facility] to get SCD and feeding pump for this pateint; however no body picks the phone and endorsed the incoming nurse to follow up with that; Also to follow up with the paper works the the supervisor dairy sanitation from [employer] [facility] promised to fax to us; patient is resting;
--- NOTE | 2019-11-20 19:30 | NUR ---
NURSE NOTES: Received a patient awake, a&ox1, and verbal. No sob,cough, fever and pain. iv is intact and asymptomatic. Pt has g-tube and flushed it. Bed in the lower position,locked,and alarm on. we will continue monitoring the pt.
[2019-11-20 20:00] VITALS: BP 89/60
[2019-11-20] MEDS ORDERED: Valproic Acid 250mg/5ml Liquid GT SCH (21:00)
[2019-11-20] MEDS ORDERED: carBAMazepine 200mg tab GT SCH (21:00)
[2019-11-20] MEDS ORDERED: Xarelto 10mg tab GT SCH (21:00)
[2019-11-20 21:36] VITALS: BP 89/60
--- NOTE | 2019-11-20 21:45 | NUR ---
NURSE NOTES: I notified the doctor about pt bp. pt bp is 89/60. He ordered to transfer the pt to tele and to add and to consultation. order noted and carried on.
--- NOTE | 2019-11-20 22:45 | NUR ---
HAND-OFF: Report given to 2E nurse HAMMAD Ivan. Endrosed POC and pt is seziure and aspiration percution. Addendum: 11/20/19 at 2256 by EMELY ROBERT RN discard above note
--- NOTE | 2019-11-20 22:46 | NUR ---
HAND-OFF: Report given to 2E nurse HAMMAD Ivan. Endorsed POC and pt is seizure and aspiration precaution
--- NOTE | 2019-11-20 23:59 | NUR ---
NURSE NOTES: Received patient report from HAMMAD Trevizo. Patient was transferred to the floor without incident. Patient shows no signs of distress or pain at the time. Patient is AO x 1. Patient is sleeping and asked to not be woken up. Vitals are within normal limits. BP is 121/ 70, 87 HR, 100% O2, 96.6 Temp. She shows no signs of respiratory distress. Patient is on 3L on Nasal Canula.IV is intact. Patient started on G-tube feeding Jevity 1.2 @ 50 cc as ordered. Patent and flushed. There are no signs of erythema, infiltration, or bleeding. Patient connected to tele monitoring, bed is in the lowest position, side rails up x3 and padded, call light is within reach. Will continue to monitor.
[2019-11-21] VITALS: BP 121/78
[2019-11-21 04:00] VITALS: BP 107/61
[2019-11-21 06:09] LABS: BASOPHILS % (AUTO) 1.2 % (0.0-2.0); EOSINOPHILS % (AUTO) 1.6 % (0.0-3.0); HEMATOCRIT 32.7 % (37.0-47.0); HEMOGLOBIN 10.4 G/DL (12.0-16.0); LYMPHOCYTES % (AUTO) 10.1 % (20.0-45.0); MEAN CORPUSCULAR VOLUME 100 FL (80-99); MONOCYTES % (AUTO) 11.4 % (1.0-10.0); NEUTROPHILS % (AUTO) 75.6 % (45.0-75.0); PLATELET COUNT 302 K/UL (150-450); RED BLOOD COUNT 3.28 M/UL (4.20-5.40); RED CELL DISTRIBUTION WIDTH 13.4 % (11.6-14.8); WHITE BLOOD COUNT 5.8 K/UL (4.8-10.8)
[2019-11-21 06:12] LABS: ANION GAP 5 mmol/L (5-15); BLOOD UREA NITROGEN 17 mg/dL (7-18); CALCIUM 7.8 MG/DL (8.5-10.1); CARBON DIOXIDE 29 MMOL/L (21-32); CHLORIDE 103 MMOL/L (98-107); POTASSIUM 4.4 MMOL/L (3.5-5.1); SODIUM 137 MMOL/L (136-145)
[2019-11-21 06:18] LABS: ALANINE AMINOTRANSFERASE 16 U/L (12-78); ALBUMIN 2.4 G/DL (3.4-5.0); ALBUMIN/GLOBULIN RATIO 0.5 (1.0-2.7); ALKALINE PHOSPHATASE 60 U/L (46-116); ASPARTATE AMINO TRANSFERASE 26 U/L (15-37); BILIRUBIN,TOTAL 0.3 MG/DL (0.2-1.0)
--- NOTE | 2019-11-21 07:11 | NUR ---
HAND-OFF: Report given to HAMMAD Meadows. Patient shows no signs of distress or pain at the time. Endorsed plan of care.
--- NOTE | 2019-11-21 07:26 | NUR ---
NURSE NOTES: Received report from Sri Espinal RN. Patient sitting HOB at 45 degrees, patient sleeping, respirations at 16 breaths per minute, on 3 liters nasal cannula, IV patent in right forearm, bilateral heels floating, side rails up x 3 and padded, bed is low and locked, call light within reach, in no apparent distress.
[2019-11-21 08:00] VITALS: BP 113/72
--- NOTE | 2019-11-21 08:16 | Consultation ---
Consult Note Consult Note I was asked to evaluate the patient at the request of Dr. Weeks for hypotension and fluid management Patient seen and evaluated Preliminary labs ordered Preliminary orders given Albumin bolus and midodrine ordered ER: Patient is a 74-year-old female sent in from facility for malfunctioning G- tube. Reportedly patient had been having increased drainage from G-tube site. Had previously tested positive for coronavirus. 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 HEAD AND NECK: Showed no JVD. LUNGS: Clear. CARDIOVASCULAR: Shows irregular S1 and S2 with no gallop or murmur. ABDOMEN: Soft, status post G-tube. EXTREMITIES: Lower extremities had 1+ pitting edema. Assessment/Plan Hypotension Anemia Organic brain syndrome Multiple psych medications Check serum cortisol level Midodrin Anemia work-up IV fluid bolus as needed Per orders Per consultants Kerwin Womack MD Nov 21, 2019 08:16
[2019-11-21] MEDS ORDERED: Ferrous Sulfate 300 MG/5 ML UDC GT SCH ×2 (09:00)
[2019-11-21] MEDS ORDERED: Ascorbic Acid 500mg tab GT SCH (09:00)
[2019-11-21] MEDS ORDERED: Metoprolol Succinate XL 25mg tab ORAL SCH (09:00)
[2019-11-21] MEDS ORDERED: Docusate 100mg/10ml Liq GT SCH (09:00)
[2019-11-21] MEDS ORDERED: Milk of Magnesia 30ml Ud GT SCH (09:00)
[2019-11-21] MEDS ORDERED: Levothyroxine 25mcg tab ORAL SCH (09:00)
[2019-11-21] MEDS ORDERED: Milk of Magnesia 30ml Ud ORAL SCH (09:00)
[2019-11-21] MEDS ORDERED: carBAMazepine 200mg tab GT SCH ×2 (09:00)
[2019-11-21] MEDS: Docusate 100mg/10ml Liq GT SCH (09:10)
[2019-11-21] MEDS: Valproic Acid 250mg/5ml Liquid GT SCH ×2 (09:10→21:08)
[2019-11-21] MEDS: Milk of Magnesia 30ml Ud GT SCH (09:10)
[2019-11-21] MEDS: carBAMazepine 200mg tab GT SCH ×2 (09:11→21:08)
[2019-11-21] MEDS: Ascorbic Acid 500mg tab GT SCH ×2 (09:12→18:25)
--- NOTE | 2019-11-21 10:28 | NUR ---
RD ASSESSMENT & RECOMMENDATIONS SEE CARE ACTIVITY FOR COMPLETE ASSESSMENT DAILY ESTIMATED NEEDS: Needs based on Cardiac, pulmonary 58kg abw 25-30 kcals/kg 7534-5207 total kcals 1-1.5 g protein/kg 58-87 g total protein 25-30 mL/kg 0873-3767 total fluid mLs NUTRITION DIAGNOSIS: Swallowing difficulty r/t dysphagia as evidenced by pt is GT dep. (CURRENT TF: Jevity 1.2 @50ml/hr x20 hrs) ENTERAL NUTRITION RECOMMENDATIONS: Jevity 1.2 @60ml/hr x20 hrs to provide 1200ml, 1440 kcal, 67g pro, 968ml free h2O - rec to INCREASE TF to better meet est needs. - TF to be held for 4 hrs, including the 2 hrs before and after synthroid. - Flush per MD, HOB over 30 degrees ------- ADDITIONAL RECOMMENDATIONS: 1) TF recs as above 2) Obtain calibrated bed scale wts 3) F/up w/ WC eval 4) Obtain A1C, need for hypoglycemics -> rec accuchecks .
[2019-11-21 10:29] LABS: PHOSPHORUS 3.9 MG/DL (2.5-4.9)
[2019-11-21 10:44] LABS: FERRITIN 273 NG/ML (8-388)
[2019-11-21 10:58] LABS: % IRON SATURATION 32 % (15-50); IRON 70 ug/dL (50-175); TOTAL IRON BINDING CAPACITY 218 ug/dL (250-450)
[2019-11-21 12:00] VITALS: BP 101/55
--- NOTE | 2019-11-21 12:29 | General Progress Note ---
Assessment/Plan Assessment/Plan: Assessment - Malnutrition / GT - GT in good position, no overt sign of infection - anemia - OBS Recommendations - OK to use GT - monitor GT site - Check Stool OB - f/u Iron panel - d/c PO FeSO4 Thank you Landry Alvares MD Subjective Allergies: Coded Allergies: No Known Allergies (Unverified , 10/04/18) Objective Last 24 Hour Vital Signs Date Time Temp Pulse Resp B/P (MAP) Pulse Ox O2 Delivery O2 Flow Rate FiO2 11/21/19 09:10 90 113/72 11/21/19 08:00 86 11/21/19 08:00 96.8 90 20 113/72 (86) 94 11/21/19 04:00 86 11/21/19 04:00 96.6 93 20 107/61 (76) 100 11/21/19 00:00 96.6 95 18 121/78 (92) 100 11/20/19 23:16 69 11/20/19 23:16 Nasal Cannula 3.0 11/20/19 21:00 Nasal Cannula 3.0 11/20/19 20:00 97.0 84 19 89/60 (70) 100 11/20/19 19:59 Nasal Cannula 3.0 11/20/19 18:36 98.0 103 18 91/51 (64) 100 11/20/19 17:43 98.1 96 16 110/68 96 Nasal Cannula 3.0 11/20/19 17:32 98.1 96 16 110/68 96 Nasal Cannula 3.0 11/20/19 17:09 98.1 79 16 95/64 97 Nasal Cannula 2.0 11/20/19 16:06 98.1 98 16 98/65 93 Nasal Cannula 4.0 11/20/19 14:29 98.1 80 16 98/65 (76) 93 Nasal Cannula 2.0 Intake and Output 11/20/19 11/21/19 19:00 07:00 Intake Total 300 ml Balance 300 ml Intake Free Water 250 ml Tube Feeding 50 ml # Voids 1 1 # Bowel Movements 1 Laboratory Tests 11/20/19 15:00: Prothrombin Time 11.9H, Prothromb Time International Ratio 1.1, Activated Partial Thromboplast Time 26, Sodium Level 136, Potassium Level 4.7, Chloride Level 100, Carbon Dioxide Level 30, Anion Gap 6, Blood Urea Nitrogen 19H, Creatinine 1.0, Estimat Glomerular Filtration Rate 54.2, Glucose Level 86, Calcium Level 8.5, Total Bilirubin 0.3, Aspartate Amino Transf (AST/SGOT) 28, Alanine Aminotransferase (ALT/SGPT) 18, Alkaline Phosphatase 65, Troponin I 0.003, Total Protein 8.0, Albumin 2.7L, Globulin 5.3, Albumin/Globulin Ratio 0.5L 11/20/19 16:00: White Blood Count 6.6, Red Blood Count 3.09L, Hemoglobin 9.9L, Hematocrit 29.8L , Mean Corpuscular Volume 96, Mean Corpuscular Hemoglobin 32.2H, Mean Corpuscular Hemoglobin Concent 33.4, Red Cell Distribution Width 14.1, Platelet Count 289, Mean Platelet Volume 6.1L, Neutrophils (%) (Auto) 72.9, Lymphocytes ( %) (Auto) 11.7L, Monocytes (%) (Auto) 12.5H, Eosinophils (%) (Auto) 1.2, Basophils (%) (Auto) 1.6 11/21/19 05:30: Sodium Level 137, Potassium Level 4.4, Chloride Level 103, Carbon Dioxide Level 29, Anion Gap 5, Blood Urea Nitrogen 17, Creatinine 1.0, Estimat Glomerular Filtration Rate 54.2, Glucose Level 102, Calcium Level 7.8L, Total Bilirubin 0.3 , Aspartate Amino Transf (AST/SGOT) 26, Alanine Aminotransferase (ALT/SGPT) 16, Alkaline Phosphatase 60, Total Protein 7.3, Albumin 2.4L, Globulin 4.9, Albumin/ Globulin Ratio 0.5L, White Blood Count 5.8, Red Blood Count 3.28L, Hemoglobin 10.4L, Hematocrit 32.7L, Mean Corpuscular Volume 100H, Mean Corpuscular Hemoglobin 31.6H, Mean Corpuscular Hemoglobin Concent 31.7L, Red Cell Distribution Width 13.4, Platelet Count 302, Mean Platelet Volume 5.7L, Neutrophils (%) (Auto) 75.6H, Lymphocytes (%) (Auto) 10.1L, Monocytes (%) (Auto ) 11.4H, Eosinophils (%) (Auto) 1.6, Basophils (%) (Auto) 1.2, Phosphorus Level 3.9, Magnesium Level 1.9, Iron Level 70, Total Iron Binding Capacity 218L, Percent Iron Saturation 32, Unsaturated Iron Binding 148, Ferritin 273, C- Reactive Protein, Quantitative 2.2H, Vitamin B12 Level 990H, Folate 10.0, Thyroid Stimulating Hormone (TSH) 3.318, Valproic Acid (Depakene) Level 26L Height (Feet): 5 Height (Inches): 4.00 Weight (Pounds): 154 Landry Alvares MD Nov 21, 2019 12:29
--- NOTE | 2019-11-21 13:39 | Cardiac Electrophysiology PN ---
Subjective Subjective [id number] Objective Last 24 Hour Vital Signs Date Time Temp Pulse Resp B/P (MAP) Pulse Ox O2 Delivery O2 Flow Rate FiO2 11/21/19 12:00 96.8 72 18 101/55 (70) 97 11/21/19 09:10 90 113/72 11/21/19 08:00 86 11/21/19 08:00 96.8 90 20 113/72 (86) 94 11/21/19 04:00 86 11/21/19 04:00 96.6 93 20 107/61 (76) 100 11/21/19 00:00 96.6 95 18 121/78 (92) 100 11/20/19 23:16 69 11/20/19 23:16 Nasal Cannula 3.0 11/20/19 21:00 Nasal Cannula 3.0 11/20/19 20:00 97.0 84 19 89/60 (70) 100 11/20/19 19:59 Nasal Cannula 3.0 11/20/19 18:36 98.0 103 18 91/51 (64) 100 11/20/19 17:43 98.1 96 16 110/68 96 Nasal Cannula 3.0 11/20/19 17:32 98.1 96 16 110/68 96 Nasal Cannula 3.0 11/20/19 17:09 98.1 79 16 95/64 97 Nasal Cannula 2.0 11/20/19 16:06 98.1 98 16 98/65 93 Nasal Cannula 4.0 11/20/19 14:29 98.1 80 16 98/65 (76) 93 Nasal Cannula 2.0 Intake and Output 11/20/19 11/21/19 19:00 07:00 Intake Total 300 ml Balance 300 ml Intake Free Water 250 ml Tube Feeding 50 ml # Voids 1 1 # Bowel Movements 1 Laboratory Tests Test 11/20/19 15:00 11/20/19 16:00 11/21/19 05:30 Prothrombin Time 11.9 SEC (9.30-11.50) H Prothromb Time International Ratio 1.1 (0.9-1.1) Activated Partial Thromboplast Time 26 SEC (23-33) Sodium Level 136 MMOL/L (136-145) 137 MMOL/L (136-145) Potassium Level 4.7 MMOL/L (3.5-5.1) 4.4 MMOL/L (3.5-5.1) Chloride Level 100 MMOL/L (98-107) 103 MMOL/L (98-107) Carbon Dioxide Level 30 MMOL/L (21-32) 29 MMOL/L (21-32) Anion Gap 6 mmol/L (5-15) 5 mmol/L (5-15) Blood Urea Nitrogen 19 mg/dL (7-18) H 17 mg/dL (7-18) Creatinine 1.0 MG/DL (0.55-1.30) 1.0 MG/DL (0.55-1.30) Estimat Glomerular Filtration Rate 54.2 mL/min (>60) 54.2 mL/min (>60) Glucose Level 86 MG/DL (74-106) 102 MG/DL (74-106) Calcium Level 8.5 MG/DL (8.5-10.1) 7.8 MG/DL (8.5-10.1) L Total Bilirubin 0.3 MG/DL (0.2-1.0) 0.3 MG/DL (0.2-1.0) Aspartate Amino Transf (AST/SGOT) 28 U/L (15-37) 26 U/L (15-37) Alanine Aminotransferase (ALT/SGPT) 18 U/L (12-78) 16 U/L (12-78) Alkaline Phosphatase 65 U/L (46-116) 60 U/L (46-116) Troponin I 0.003 ng/mL (0.000-0.056) Total Protein 8.0 G/DL (6.4-8.2) 7.3 G/DL (6.4-8.2) Albumin 2.7 G/DL (3.4-5.0) L 2.4 G/DL (3.4-5.0) L Globulin 5.3 g/dL 4.9 g/dL Albumin/Globulin Ratio 0.5 (1.0-2.7) L 0.5 (1.0-2.7) L White Blood Count 6.6 K/UL (4.8-10.8) 5.8 K/UL (4.8-10.8) Red Blood Count 3.09 M/UL (4.20-5.40) L 3.28 M/UL (4.20-5.40) L Hemoglobin 9.9 G/DL (12.0-16.0) L 10.4 G/DL (12.0-16.0) L Hematocrit 29.8 % (37.0-47.0) L 32.7 % (37.0-47.0) L Mean Corpuscular Volume 96 FL (80-99) 100 FL (80-99) H Mean Corpuscular Hemoglobin 32.2 PG (27.0-31.0) H 31.6 PG (27.0-31.0) H Mean Corpuscular Hemoglobin Concent 33.4 G/DL (32.0-36.0) 31.7 G/DL (32.0-36.0) L Red Cell Distribution Width 14.1 % (11.6-14.8) 13.4 % (11.6-14.8) Platelet Count 289 K/UL (150-450) 302 K/UL (150-450) Mean Platelet Volume 6.1 FL (6.5-10.1) L 5.7 FL (6.5-10.1) L Neutrophils (%) (Auto) 72.9 % (45.0-75.0) 75.6 % (45.0-75.0) H Lymphocytes (%) (Auto) 11.7 % (20.0-45.0) L 10.1 % (20.0-45.0) L Monocytes (%) (Auto) 12.5 % (1.0-10.0) H 11.4 % (1.0-10.0) H Eosinophils (%) (Auto) 1.2 % (0.0-3.0) 1.6 % (0.0-3.0) Basophils (%) (Auto) 1.6 % (0.0-2.0) 1.2 % (0.0-2.0) Phosphorus Level 3.9 MG/DL (2.5-4.9) Magnesium Level 1.9 MG/DL (1.8-2.4) Iron Level 70 ug/dL (50-175) Total Iron Binding Capacity 218 ug/dL (250-450) L Percent Iron Saturation 32 % (15-50) Unsaturated Iron Binding 148 ug/dL (112-346) Ferritin 273 NG/ML (8-388) C-Reactive Protein, Quantitative 2.2 mg/dL (0.00-0.90) H Vitamin B12 Level 990 PG/ML (193-986) H Folate 10.0 NG/ML (8.6-58.9) Thyroid Stimulating Hormone (TSH) 3.318 uiU/mL (0.358-3.740) Valproic Acid (Depakene) Level 26 MCG/ML (50-100) L Microbiology Date/Time Source Procedure Growth Status 11/20/19 16:00 Rectum Received Tomás Negrete MD Nov 21, 2019 13:39
--- NOTE | 2019-11-21 15:40 | Diagnostic Imaging Report ---
History: SOB Exam: XR CXR 1 VIEW Comparison: 10/30/2019 FINDINGS: There is again appearance of ill-defined patchy opacity at the left base. The lungs otherwise appear clear. Cardiac silhouette is enlarged. Dual- chamber pacemaker again noted. Pulmonary vascularity appears within limits. IMPRESSION: There is again appearance of ill-defined patchy opacity at the left base. Cardiac silhouette is enlarged. Dual-chamber pacemaker again noted.
[2019-11-21 16:00] VITALS: BP 109/52
--- NOTE | 2019-11-21 17:00 | Consultation ---
DATE OF CONSULTATION: 11/21/2019 GASTROENTEROLOGY CONSULTATION CONSULTING PHYSICIAN: Landry Alvares MD. CHIEF COMPLAINT: I was asked to see this patient by Dr. Jose Woodard for evaluation of gastrostomy tube dysfunction. HISTORY OF PRESENT ILLNESS: The patient is an unfortunate 74-year-old white woman with cognitive dysfunction, who was brought into the hospital due to gastrostomy tube leak. The patient herself is a poor historian, but according to the emergency room physician there appeared to be some leaking at the gastrostomy site prior to admission and therefore, the patient was sent to the emergency room for care. The patient denies any abdominal pain or nausea or vomiting, but history is somewhat limited as she is confused. The remainder of the medical issues were outlined below. PAST MEDICAL HISTORY: History of dehydration, history of hypothyroidism, history of cognitive dysfunction and malnutrition, status post gastrostomy tube placement, anemia on iron, and psychiatric disorder. The patient also was on anticoagulant for unclear reasons. FAMILY HISTORY: Unavailable. SOCIAL HISTORY: The patient resides in a long term and there is no recent history of smoking or drinking reported. REVIEW OF SYSTEMS: Otherwise negative. ALLERGIES: None. PHYSICAL EXAMINATION: GENERAL: An elderly, confused white woman, seen in her room, in no distress. HEENT: Normocephalic and atraumatic. Sclerae anicteric. Oropharynx clear. NECK: Supple. CHEST: Clear to auscultation. CARDIOVASCULAR: Revealed regular rate. ABDOMEN: Soft. There was a gastrostomy tube, which was in a reasonable position. There is some minimal amount of physiologic discharge around the gastrostomy site. There is no suggestion of fluctuance or abscess or cellulitis around the site. EXTREMITIES: Revealed no edema. LABORATORY DATA: Noted. ASSESSMENT: This patient presents with some degree of gastrostomy tube dysfunction, although there does not seem to be an overt infection and the tube position appears to be appropriate. The patient has had abdominal x-ray, which showed the tip was in the gastric body with oral contrast introduced in the gastric body without any evidence of extravasation. In addition, her white count abruptly is normal. I would continue the gastrostomy tube as needed and monitor its function. The patient does have some degree of anemia and therefore the family can be contacted regarding any previous workup and whether the patient should undergo any other evaluations such as endoscopy and colonoscopy. The patient's stool occult blood should be checked and I would discontinue oral iron therapy at this time in case the patient needs gastrointestinal workup. RECOMMENDATIONS: Per above discussion and per orders written in the chart. Thank you for asking me to participate in the care of this patient. Landry Alvares M.D. DR: CHRIS JOB#: [id number] CC:
--- NOTE | 2019-11-21 18:26 | NUR ---
NURSE NOTES: Patient pulled IV out. We replaced with another IV. Informed Dr. Tomás Negrete, received restraint order, applied restraints, and patient pulled IV out, again.
[2019-11-21] MEDS ORDERED: Fleet's Enema 133ml RECTAL PRN (18:45)
--- NOTE | 2019-11-21 18:49 | NUR ---
NURSE NOTES: Notified Dr. Jose Woodard that patient pulled out a second IV today. Patient not on IV medications. Patient on restraints, per Dr. Tomás Morejon. Dr. Jose Woodard asked to have Dr. Jordan Valdes as consult and to contact her. I left message on Dr. Jordan Valdes's voicemail.
[2019-11-21] MEDS ORDERED: LORazepam 1mg tab GT PRN (19:15)
--- NOTE | 2019-11-21 19:22 | NUR ---
HAND-OFF: Report given to HAMMAD Mercado, Charge Nurse. Patient pulled out second IV. Continue restraints, add Zyprexa, schedule, and ativan prn, see orders, Bed in lowest position, call light within reach, side rails up x 3, on 3 liters nasal cannula saturating at 94 percent. SCD's in place, purewick in place.
--- NOTE | 2019-11-21 19:57 | NUR ---
NURSE NOTES: Pt received from Rogelio and HAMMAD Meadows alert and oriented to name only. No IV site noted, will attempt to insert new IV at later time. Bed in lowest position, bed alarm on. Call light and belongings within reach. Restraints and nasal cannula noted to be off, assessed extremities (no swelling, redness or pain noted on bilateral upper extremities, Pulses equal bilaterally, skin intact on bilateral upper extremities). Re-applied restraints and 3L NC, saturating at 97%.
[2019-11-21 20:00] VITALS: BP 115/52
[2019-11-21] MEDS: Metoprolol Tartrate 12.5mg TAB GT SCH (21:00)
[2019-11-21] MEDS: Xarelto 15mg tab GT SCH (21:08)
--- NOTE | 2019-11-21 23:52 | NUR ---
NURSE NOTES: Pt heard retching and moaning in room, entered room and found beige-tinted vomitus on patient's mouth and chest. Gtube feeding stopped and held, patient saturating at 97% on 3L NC. Patient suctioned orally with Yankauer - 20 ml noted through suction. Approximately 50 ml noted on gown. Left message with Dr. Alvares and Dr. Woodard.
--- NOTE | 2019-11-21 23:57 | NUR ---
NURSE NOTES: Received order from Dr. Alvares and Dr. Woodard. Per, Dr. Alvares and Dr. Woodard - give Zofran 4 mg IVP q6h PRN for nausea and vomiting. Per Dr. Alvares - hold Gtube feeds until the morning.
[2019-11-22] VITALS: BP 117/56
--- NOTE | 2019-11-22 00:45 | Consultation ---
DATE OF CONSULTATION: 11/21/2019 INFECTIOUS DISEASES CONSULTATION CONSULTING PHYSICIAN: Roberth Topete MD. PRIMARY ATTENDING PHYSICIAN: Jose Woodard MD. REASON FOR CONSULTATION: Recent COVID-19 infection. HISTORY OF PRESENT ILLNESS: A 74-year-old white female was admitted from a nursing facility because of malfunctioning of G-tube. There were concern about leaking around G-tube. The patient had no no fever or systemic symptoms. It was noticed that the patient had another visit on 10/30/2019 to the ER, and at that time, the test was positive for COVID-19. She was admitted to the hospital on that admission. PAST MEDICAL HISTORY: Significant for diabetes mellitus, hypertension, dementia, failure to thrive status post G-tube placement, anemia, hypothyroidism. MEDICATIONS: Xarelto, metoprolol, bisacodyl, midodrine, aspirin, carbamazepine, gabapentin, magnesium hydroxide, Risperdal, levothyroxine, Tylenol, got a dose of cefazolin in the ER. SOCIAL HISTORY: prison resident. No other history obtainable. PHYSICAL EXAMINATION: VITAL SIGNS: Temperature 96.8, pulse 72, blood pressure 101/55. GENERAL APPEARANCE: No acute distress, seems to have normal weight. HEAD AND NECK: [place] conjunctivae. HEART: Normal rate. LUNGS: Clear. ABDOMEN: Soft. Feeding is going on. EXTREMITIES: No edema. NEUROLOGIC: She is awake, on restraint. LABORATORY AND DIAGNOSTIC DATA: WBC 5.8, hemoglobin 10.4, hematocrit 32.7, platelets 302. Sodium 137, potassium 4.4, chloride 100, bicarbonate 29, BUN 17, creatinine 1, glucose 102. Abdominal x-ray that showed G-tube in the gastric body, oral contrast introduced through the G-tube did not show any extravasation. IMPRESSION: G-tube malfunctioning resolved now G-tube is in the normal place and no extravasation. There was no abdominal cellulitis according to GI doctor, had recent positive COVID-19 tests, atrial fibrillation, hypertension, diabetes mellitus, failure to thrive, dementia, anemia. RECOMMENDATION: Observe off antibiotic. We will follow up clinically. The patient can be discharged to nursing facility. At the end of my exam, I thank Dr. Woodard, for involving me in the care of this patient. Roberth Topete M.D. DR: Lisset JOB#: [id number] CC: GILMA
--- NOTE | 2019-11-22 01:00 | Consultation ---
DATE OF CONSULTATION: 11/21/2019 CONSULTING PHYSICIAN: Jordan Valdes MD. HISTORY OF PRESENT ILLNESS: This is a 74-year-old female with a history of dementia and multiple medical issues including hypothyroidism who has been admitted to the hospital for medical stabilization and altered mental status. Patient is severely agitated, pulling out her IV access. Patient has malfunctioning G-tube and the staff were unable to place the patient on restraints. Patient previously tested positive for [place], but currently is not positive. PAST PSYCHIATRIC HISTORY: Dementia. Outside of the hospital, patient is on Depakote and risperidone. I am familiar with this patient from previous hospitalization. PAST MEDICAL HISTORY: Significant for hypothyroidism, COVID, failure to thrive, and delirium. ALLERGIES: No known drug allergies. SUBSTANCE ABUSE HISTORY: No known history of illicit drug use or alcohol. MENTAL STATUS EXAMINATION: Patient is alert, disoriented. Mood is agitated. Affect is flat. Thought process, there is a paucity of thought content. Thought content, no suicidal or homicidal ideation. Cognition is impaired. Insight and judgment is impaired. PLAN: 1. We will increase the Depakote to 500 mg b.i.d. 2. We will increase the risperidone to 125 mg b.i.d. 3. Haldol p.r.n. 4. Bilateral soft restraints. Jordan Valdes M.D. DR: SHIELA JOB#: [id number] CC:
--- NOTE | 2019-11-22 02:00 | History and Physical Report ---
DATE OF ADMISSION: 11/20/2019 HISTORY OF PRESENT ILLNESS: The G-tube according to the nurse at the [facility] was leaking. According to the ER doctor, G-tube was too far, I pulled back to G-tube 6 cm and there was also cellulitis around the feeding tube and is admitted for cellulitis around the G-tube and G-tube malfunctioned initially. The patient denies nausea, vomiting, or diarrhea. Denies fever or chills. Denies shortness of breath. Denies cough. PAST MEDICAL HISTORY: Significant for constipation, seizure disorder, mood disorder, iron-deficiency anemia, hypothyroidism, neuropathy, psychosis, and history of dysrhythmia. PAST SURGICAL HISTORY: History of feeding tube. ALLERGIES: No known allergies. MEDICATIONS: Vitamin C, bisacodyl, Tegretol, Depakote, ferrous sulfate, Levoxyl, metoprolol, Risperidone, and Xarelto. FAMILY HISTORY: Noncontributory. SOCIAL HISTORY: Denies history of alcohol abuse. Denies history of drug abuse. Denies history of smoking. REVIEW OF SYSTEMS: HEENT: Denies headaches. RESPIRATORY: Denies shortness of breath. Denies cough. CARDIOVASCULAR: Denies chest pain. Denies nausea, vomiting, or diarrhea. Feels weak. CENTRAL NERVOUS SYSTEM: Speech pattern feels weak. PHYSICAL EXAMINATION: VITAL SIGNS: Temperature is 97.9, pulse is 87, blood pressure is 109/52. HEENT: PERRLA. CHEST: Clear to auscultation. CARDIOVASCULAR: Regular rate and rhythm. GASTROINTESTINAL: Soft. Has erythema around the G-tube and is tender to touch on the G-tube. No pus is coming out. ABDOMEN: Soft. Positive bowel sounds. No organomegaly. EXTREMITIES: 1+ edema. Has generalized weakness. LABORATORY DATA: WBC of 6.6, hemoglobin of 9.9, platelets of 289. Sodium 137, potassium 4.4, BUN of 17, creatinine 1, glucose of 102. ASSESSMENT AND PLAN: G-tube cellulitis. The G-tube was initially leaking, but according to the ER doctor, the x-ray did not show any signs of leaking and he had to pull back the G-tube. I have consulted Dr. Roberth Topete, Dr. Baez, Dr. Valdes, Dr. Negrete, and Dr. Womack for hypotension as well as for the cellulitis of the G-tube as well as for agitation as well as to see if the patient needs to be exchanged or not. Antibiotics per Dr. Roberth Topete, and for the hypotension, we will also be consulting Dr. Negrete to rule out any reasons for hypotension, rule out CHF as well. Jose Woodard M.D. DR: JESSI JOB#: [id number] CC:
--- NOTE | 2019-11-22 03:00 | NUR ---
HAND-OFF: Report given to HAMMAD Pulido. Plan of care endorsed.
--- NOTE | 2019-11-22 03:01 | NUR ---
NURSE NOTES: Received report from HAMMAD Mendieta. Patient is asleep, AO X 1. On nasal cannula @ 3 Lpm via nasal cannula with no shortness of breath reported. Patient has g-tube, on jevity 1.2 @ 50cc/hour for 20 hours, off 0800 to 1200, but at this time it's off. cafeteria monitor is on placed, shows A-fib. IV site is on right forearm g-22 saline lock that is patent and intact. Safety measures are in placed, bed in lowest and locked position, side rails up x 2. Will continue plan of care.
--- NOTE | 2019-11-22 03:30 | Consultation ---
DATE OF CONSULTATION: 11/21/2019 CARDIOLOGY CONSULTATION CONSULTING PHYSICIAN: Tomás Negrete MD. REFERRING PHYSICIAN: Jose Woodard M.D. REASON FOR CONSULTATION: Management of hypertension, atrial fibrillation, and patient's pacemaker. HISTORY OF PRESENT ILLNESS: The patient is a 74-year-old lady with history of hypertension, atrial fibrillation, pacemaker, and dementia, as well as dysphagia, status post G-tube, who was transferred from nursing facility for malfunctioning G-tube. The patient was previously tested positive for coronavirus. Cardiology consultation was obtained. At the time of my evaluation, the patient is pleasantly confused. I removed the IV, but is not able to communicate well. REVIEW OF SYSTEMS: Cannot be obtained. PAST MEDICAL HISTORY: As mentioned above. FAMILY HISTORY: Noncontributory. SOCIAL HISTORY: She is a group home resident. Does not smoke or drink alcohol. PHYSICAL EXAMINATION: VITAL SIGNS: Blood pressure 101/45, pulse 72, respirations 18, and temperature 96.8. HEAD AND NECK: Showed no JVD. LUNGS: Clear. CARDIOVASCULAR: Shows irregular S1 and S2 with no gallop or murmur. ABDOMEN: Soft, status post G-tube. EXTREMITIES: Lower extremities had 1+ pitting edema. LABORATORY DATA: Labs show a white count of 5.9, hematocrit 10.4, hematocrit 32.7, platelet count of 302. Sodium 137, potassium , BUN , creatinine 1.0, and glucose of 102. Troponin is negative. ASSESSMENT AND PLAN: 1. Hypertension. The patient is ordered to be on metoprolol 25 mg daily. I will switch to 12.5 mg b.i.d. The patient is also on midodrine blood pressure was running low before. 2. Atrial fibrillation, on metoprolol and Xarelto 15 mg at bedtime. 3. Status post pacemaker. We will try to find the brand of the pacemaker for interrogation. 4. G-tube malfunction. Further evaluation by Dr. Alvares. The patient was recently hospitalized and had pacemakers from [employer]. 5. Seizure disorder. 6. Lower extremity edema. Thank you very much for allowing me to participate in the care of this patient. Please do not hesitate to contact for any questions regarding my evaluation. Tomás Negrete M.D. DR: MASOOD JOB#: [id number] CC:
[2019-11-22 04:00] VITALS: BP 120/53
--- NOTE | 2019-11-22 07:26 | NUR ---
HAND-OFF: Report given to HAMMAD Meadows. Patient is asleep, on stable condition. Plan of care endorsed.
--- NOTE | 2019-11-22 07:37 | Nephrology Progress Note ---
Assessment/Plan Problem List: (1) Hypotension (2) Dehydration Assessment Hypotension Anemia Organic brain syndrome Multiple psych medications Plan Check serum cortisol level Midodrin for low blood pressure Anemia work-up IV fluid bolus as needed Per orders Per consultants Subjective ROS Limited/Unobtainable: No Constitutional: Reports: malaise, weakness Objective Objective Last 24 Hour Vital Signs Date Time Temp Pulse Resp B/P (MAP) Pulse Ox O2 Delivery O2 Flow Rate FiO2 11/22/19 04:00 96.2 70 17 120/53 (75) 96 11/22/19 04:00 72 11/22/19 00:00 96.4 62 18 117/56 (76) 97 11/22/19 00:00 95 11/21/19 21:00 60 115/52 11/21/19 21:00 Nasal Cannula 3.0 11/21/19 20:00 96.9 60 19 115/52 (73) 97 11/21/19 20:00 78 11/21/19 16:00 97.9 88 18 109/52 (71) 94 11/21/19 16:00 87 11/21/19 12:00 78 11/21/19 12:00 96.8 72 18 101/55 (70) 97 11/21/19 09:10 90 113/72 11/21/19 09:00 Nasal Cannula 3.0 11/21/19 08:00 86 11/21/19 08:00 78 11/21/19 08:00 96.8 90 20 113/72 (86) 94 Intake and Output 11/21/19 11/22/19 19:00 07:00 Intake Total 100 ml Balance 100 ml IV Total 100 ml # Voids 3 2 # Bowel Movements 3 2 Laboratory Tests 11/22/19 01:38: Stool Occult Blood [Pending] Labs ordered for today November 21 still pending Height (Feet): 5 Height (Inches): 4.00 Weight (Pounds): 154 General Appearance: no apparent distress, lethargic Cardiovascular: other - Variable rate Respiratory/Chest: decreased breath sounds Abdomen: soft Kerwin Womack MD Nov 22, 2019 07:37
[2019-11-22 08:00] VITALS: BP 120/62
[2019-11-22 08:22] LABS: HEMATOCRIT 28.8 % (37.0-47.0); HEMOGLOBIN 9.5 G/DL (12.0-16.0); MEAN CORPUSCULAR VOLUME 98 FL (80-99); PLATELET COUNT 258 K/UL (150-450); RED BLOOD COUNT 2.94 M/UL (4.20-5.40); RED CELL DISTRIBUTION WIDTH 13.4 % (11.6-14.8); WHITE BLOOD COUNT 11.3 K/UL (4.8-10.8)
[2019-11-22 08:40] LABS: PHOSPHORUS 3.4 MG/DL (2.5-4.9)
--- NOTE | 2019-11-22 09:01 | NUR ---
NURSE NOTES: Received report from HAMMAD Brower. Patient sleeping, respirations 18 breaths per minuted bed in lowest position, shankar light within reach, wheels licked, Addendum: 11/22/19 at 901 by NAIMA TEE RN wheels, locked, G-tube in place, IV in place, purewick in place, in no apparent disterss. Addendum: 11/22/19 at 902 by NAIMA TEE RN soft wrist restraints in place.
[2019-11-22 09:29] LABS: ALANINE AMINOTRANSFERASE 11 U/L (12-78); ALBUMIN 2.7 G/DL (3.4-5.0); ALBUMIN/GLOBULIN RATIO 0.6 (1.0-2.7); ALKALINE PHOSPHATASE 52 U/L (46-116); ANION GAP 9 mmol/L (5-15); ASPARTATE AMINO TRANSFERASE 21 U/L (15-37); BILIRUBIN,TOTAL 0.2 MG/DL (0.2-1.0); BLOOD UREA NITROGEN 19 mg/dL (7-18); CALCIUM 7.9 MG/DL (8.5-10.1); CARBON DIOXIDE 27 MMOL/L (21-32); CHLORIDE 101 MMOL/L (98-107); CREATININE 0.9 MG/DL (0.55-1.30); POTASSIUM 4.4 MMOL/L (3.5-5.1); SODIUM 137 MMOL/L (136-145)
[2019-11-22] MEDS: Milk of Magnesia 30ml Ud GT SCH (09:39)
[2019-11-22] MEDS: Metoprolol Tartrate 12.5mg TAB GT SCH ×2 (09:39→21:00)
[2019-11-22] MEDS: Ascorbic Acid 500mg tab GT SCH ×2 (09:39→18:27)
[2019-11-22] MEDS: carBAMazepine 200mg tab GT SCH ×2 (09:40→21:36)
[2019-11-22] MEDS: Valproic Acid 250mg/5ml Liquid GT SCH ×2 (09:41→21:35)
[2019-11-22] MEDS: Docusate 100mg/10ml Liq GT SCH (09:41)
--- NOTE | 2019-11-22 11:26 | General Progress Note ---
Assessment/Plan Problem List: (1) Anemia ICD Codes: D64.9 - Anemia, unspecified SNOMED: 129876958 (2) Malfunction of percutaneous endoscopic gastrostomy (PEG) tube ICD Codes: K94.23 - Gastrostomy malfunction SNOMED: 357100945 (3) AMS (altered mental status) ICD Codes: R41.82 - Altered mental status, unspecified SNOMED: 696609002 (4) Hypothyroidism ICD Codes: E03.9 - Hypothyroidism, unspecified SNOMED: 45889558 (5) Hypotension ICD Codes: I95.9 - Hypotension, unspecified SNOMED: 24640490 (6) Dehydration ICD Codes: E86.0 - Dehydration SNOMED: 32068650 Assessment/Plan: GTF nara GT care monitor for residuals anmeia work up fu stool ob GI procedures if needed Subjective ROS Limited/Unobtainable: No Allergies: Coded Allergies: No Known Allergies (Unverified , 10/04/18) Objective Last 24 Hour Vital Signs Date Time Temp Pulse Resp B/P (MAP) Pulse Ox O2 Delivery O2 Flow Rate FiO2 11/22/19 09:39 72 120/62 11/22/19 08:00 72 11/22/19 08:00 97.7 84 20 120/62 (81) 96 11/22/19 04:00 96.2 70 17 120/53 (75) 96 11/22/19 04:00 72 11/22/19 00:00 96.4 62 18 117/56 (76) 97 11/22/19 00:00 95 11/21/19 21:00 60 115/52 11/21/19 21:00 Nasal Cannula 3.0 11/21/19 20:00 96.9 60 19 115/52 (73) 97 11/21/19 20:00 78 11/21/19 16:00 97.9 88 18 109/52 (71) 94 11/21/19 16:00 87 11/21/19 12:00 78 11/21/19 12:00 96.8 72 18 101/55 (70) 97 Intake and Output 11/21/19 11/22/19 19:00 07:00 Intake Total 100 ml Balance 100 ml IV Total 100 ml # Voids 3 2 # Bowel Movements 3 2 Laboratory Tests 11/22/19 01:38: Stool Occult Blood [Pending] 11/22/19 08:00: White Blood Count 11.3#H, Red Blood Count 2.94L, Hemoglobin 9.5L, Hematocrit 28.8L, Mean Corpuscular Volume 98, Mean Corpuscular Hemoglobin 32.3H, Mean Corpuscular Hemoglobin Concent 32.9, Red Cell Distribution Width 13.4, Platelet Count 258, Mean Platelet Volume 5.7L, Neutrophils (%) (Auto) , Lymphocytes (%) ( Auto) , Monocytes (%) (Auto) , Eosinophils (%) (Auto) , Basophils (%) (Auto) , Differential Total Cells Counted 100, Neutrophils % (Manual) 89H, Lymphocytes % (Manual) 7L, Monocytes % (Manual) 4, Eosinophils % (Manual) 0, Basophils % ( Manual) 0, Band Neutrophils 0, Platelet Estimate Adequate, Platelet Morphology Normal, Red Blood Cell Morphology Normal, Sodium Level 137, Potassium Level 4.4 , Chloride Level 101, Carbon Dioxide Level 27, Anion Gap 9, Blood Urea Nitrogen 19H, Creatinine 0.9, Estimat Glomerular Filtration Rate > 60, Glucose Level 101 , Calcium Level 7.9L, Phosphorus Level 3.4, Magnesium Level 2.1, Total Bilirubin 0.2, Aspartate Amino Transf (AST/SGOT) 21, Alanine Aminotransferase ( ALT/SGPT) 11L, Alkaline Phosphatase 52, Troponin I 0.013, Total Protein 7.0, Albumin 2.7L, Globulin 4.3, Albumin/Globulin Ratio 0.6L, Thyroid Stimulating Hormone (TSH) 1.882, Cortisol AM Sample [Pending] Height (Feet): 5 Height (Inches): 4.00 Weight (Pounds): 154 General Appearance: no apparent distress EENT: normal ENT inspection Neck: normal alignment Cardiovascular: normal rate Respiratory/Chest: decreased breath sounds Abdomen: normal bowel sounds, non tender, soft Extremities: non-tender Kvng Baez MD Nov 22, 2019 11:26
--- NOTE | 2019-11-22 11:34 | Infectious Diseases Prog Note ---
Assessment/Plan Assessment/Plan IMPRESSION: G-tube malfunctioning resolved Recent positive COVID-19 test Atrial fibrillation, Hypertension, Diabetes mellitus, Failure to thrive, Dementia, Anemia. RECOMMENDATION: Observe off antibiotic. Case was D/W RN Subjective ROS Limited/Unobtainable: Yes Constitutional: Denies: fever Allergies: Coded Allergies: No Known Allergies (Unverified , 10/04/18) Objective Last 24 Hour Vital Signs Date Time Temp Pulse Resp B/P (MAP) Pulse Ox O2 Delivery O2 Flow Rate FiO2 11/22/19 09:39 72 120/62 11/22/19 08:00 72 11/22/19 08:00 97.7 84 20 120/62 (81) 96 11/22/19 04:00 96.2 70 17 120/53 (75) 96 11/22/19 04:00 72 11/22/19 00:00 96.4 62 18 117/56 (76) 97 11/22/19 00:00 95 11/21/19 21:00 60 115/52 11/21/19 21:00 Nasal Cannula 3.0 11/21/19 20:00 96.9 60 19 115/52 (73) 97 11/21/19 20:00 78 11/21/19 16:00 97.9 88 18 109/52 (71) 94 11/21/19 16:00 87 11/21/19 12:00 78 11/21/19 12:00 96.8 72 18 101/55 (70) 97 Height (Feet): 5 Height (Inches): 4.00 Weight (Pounds): 154 General Appearance: no acute distress HEENT: mucous membranes moist Respiratory/Chest: other - oxygen by nasal cannula Cardiovascular: normal rate, pacemaker/AICD Abdomen: soft, non tender, other - GT feeding Extremities: no edema Microbiology Date/Time Source Procedure Growth Status 11/20/19 16:00 Nasal Nares MRSA Culture - Final Staphylococcus Aureus - Mrsa Complete 11/20/19 16:00 Rectum - Final NO CARBAPENEM-RESISTANT ENTEROBACTERI... Complete 11/20/19 16:00 Rectum VRE Culture - Final Enterococcus Faecium - Vre Complete Laboratory Tests Test 11/22/19 01:38 11/22/19 08:00 Stool Occult Blood Pending White Blood Count 11.3 K/UL (4.8-10.8) #H Red Blood Count 2.94 M/UL (4.20-5.40) L Hemoglobin 9.5 G/DL (12.0-16.0) L Hematocrit 28.8 % (37.0-47.0) L Mean Corpuscular Volume 98 FL (80-99) Mean Corpuscular Hemoglobin 32.3 PG (27.0-31.0) H Mean Corpuscular Hemoglobin Concent 32.9 G/DL (32.0-36.0) Red Cell Distribution Width 13.4 % (11.6-14.8) Platelet Count 258 K/UL (150-450) Mean Platelet Volume 5.7 FL (6.5-10.1) L Neutrophils (%) (Auto) % (45.0-75.0) Lymphocytes (%) (Auto) % (20.0-45.0) Monocytes (%) (Auto) % (1.0-10.0) Eosinophils (%) (Auto) % (0.0-3.0) Basophils (%) (Auto) % (0.0-2.0) Differential Total Cells Counted 100 Neutrophils % (Manual) 89 % (45-75) H Lymphocytes % (Manual) 7 % (20-45) L Monocytes % (Manual) 4 % (1-10) Eosinophils % (Manual) 0 % (0-3) Basophils % (Manual) 0 % (0-2) Band Neutrophils 0 % (0-8) Platelet Estimate Adequate Platelet Morphology Normal Red Blood Cell Morphology Normal Sodium Level 137 MMOL/L (136-145) Potassium Level 4.4 MMOL/L (3.5-5.1) Chloride Level 101 MMOL/L (98-107) Carbon Dioxide Level 27 MMOL/L (21-32) Anion Gap 9 mmol/L (5-15) Blood Urea Nitrogen 19 mg/dL (7-18) H Creatinine 0.9 MG/DL (0.55-1.30) Estimat Glomerular Filtration Rate > 60 mL/min (>60) Glucose Level 101 MG/DL (74-106) Calcium Level 7.9 MG/DL (8.5-10.1) L Phosphorus Level 3.4 MG/DL (2.5-4.9) Magnesium Level 2.1 MG/DL (1.8-2.4) Total Bilirubin 0.2 MG/DL (0.2-1.0) Aspartate Amino Transf (AST/SGOT) 21 U/L (15-37) Alanine Aminotransferase (ALT/SGPT) 11 U/L (12-78) L Alkaline Phosphatase 52 U/L (46-116) Troponin I 0.013 ng/mL (0.000-0.056) Total Protein 7.0 G/DL (6.4-8.2) Albumin 2.7 G/DL (3.4-5.0) L Globulin 4.3 g/dL Albumin/Globulin Ratio 0.6 (1.0-2.7) L Thyroid Stimulating Hormone (TSH) 1.882 uiU/mL (0.358-3.740) Cortisol AM Sample Pending Current Medications Medications (Trade) Dose Ordered Sig/Charles Route PRN Reason Start Time Stop Time Status Last Admin Dose Admin Acetaminophen (Tylenol) 650 mg Q4H PRN GT pain/fever 11/20/19 23:21 12/20/19 23:20 Acetaminophen (Tylenol) 1,000 mg Q4H PRN GT MILD/TEMP 11/20/19 23:21 12/20/19 23:20 Ascorbic Acid (Vitamin C) 500 mg TWICE A DAY GT 11/21/19 09:00 12/21/19 08:59 11/22/19 09:39 Bisacodyl (Dulcolax) 10 mg PRN PRN RECTAL Constipation 11/21/19 18:45 02/18/20 18:44 Carbamazepine (TEGretol) 600 mg Q12HR GT 11/21/19 09:00 12/20/19 20:59 11/22/19 09:40 Docusate Sodium (Colace) 250 mg DAILY GT 11/21/19 09:00 12/21/19 08:59 11/22/19 09:41 Gabapentin (Neurontin) 100 mg THREE TIMES A DAY GT 11/21/19 09:00 12/21/19 08:59 11/22/19 09:47 Levothyroxine Sodium (Synthroid) 50 mcg ACBREAKFAST GT 11/21/19 06:30 12/21/19 06:29 11/22/19 06:11 Lorazepam (Ativan) 1 mg Q4H PRN GT For Anxiety 11/21/19 19:15 11/28/19 19:14 Magnesium Hydroxide (Mom) 30 ml DAILY GT 11/21/19 09:00 12/21/19 08:59 11/22/19 09:39 Metoprolol Tartrate (Lopressor) 12.5 mg Q12HR GT 11/21/19 21:00 02/19/20 20:59 11/22/19 09:39 Midodrine (Pro-Amatine) 2.5 mg THREE TIMES A DAY GT 11/21/19 18:00 02/19/20 08:59 11/22/19 09:40 Ondansetron HCl (Zofran) 4 mg Q6H PRN IVP Nausea & Vomiting 11/22/19 00:00 12/22/19 00:00 11/22/19 00:15 Risperidone (RisperDAL) 1.5 mg BID GT 11/22/19 09:00 01/06/20 08:59 11/22/19 09:40 Rivaroxaban (Xarelto) 15 mg BEDTIME GT 11/21/19 21:00 02/19/20 20:59 11/21/19 21:08 Sodium Phosphate (Fleet's Sodium Phosl Enema) 133 ml PRN PRN RECTAL Constipation 11/21/19 18:45 12/20/19 18:44 Valproic Acid (Depakene) 500 mg EVERY 12 HOURS GT 11/22/19 09:00 01/06/20 08:59 11/22/19 09:41 Zinc Oxide (Zinc Oxide) 1 applic THREE TIMES A DAY TOPIC 11/22/19 13:00 02/20/20 12:59 Roberth Topete MD Nov 22, 2019 11:34
--- NOTE | 2019-11-22 11:52 | NUR ---
*-* INSURANCE *-* ALL AVAILABLE CLINICALS HAVE BEEN FAXED TO: LES[facility] MOR[facility] F: [phone] F: [phone]
[2019-11-22 12:00] VITALS: BP 110/55
--- NOTE | 2019-11-22 12:06 | NUR ---
NURSE NOTES: Notified Dr. Roberth Topete patient positive for MRSA. Dr. Emmanuelle Topete does not want a Covid Swab and cleared for discharge from infections disease perspective. Do not discontinue droplet contact precautions until discharge.
--- NOTE | 2019-11-22 15:16 | Cardiac Electrophysiology PN ---
Assessment/Plan Assessment/Plan 1. Hypertension. On metoprolol 12.5 mg b.i.d. Also on midodrine as BP was running low before. 2. Atrial fibrillation, on metoprolol 12.5 bid and Xarelto 15 mg at bedtime. 3. Status post DDD left sided [employer] pacemaker. 4. G-tube malfunction. Further evaluation by Dr. Alvares. 5. Seizure disorder. 6. Lower extremity edema. Subjective Subjective In isolation. Atrial fib rate OK Objective Last 24 Hour Vital Signs Date Time Temp Pulse Resp B/P (MAP) Pulse Ox O2 Delivery O2 Flow Rate FiO2 11/22/19 12:00 71 11/22/19 12:00 97.8 80 20 110/55 (73) 97 11/22/19 09:39 72 120/62 11/22/19 09:00 Nasal Cannula 3.0 11/22/19 08:00 72 11/22/19 08:00 97.7 84 20 120/62 (81) 96 11/22/19 04:00 96.2 70 17 120/53 (75) 96 11/22/19 04:00 72 11/22/19 00:00 96.4 62 18 117/56 (76) 97 11/22/19 00:00 95 11/21/19 21:00 60 115/52 11/21/19 21:00 Nasal Cannula 3.0 11/21/19 20:00 96.9 60 19 115/52 (73) 97 11/21/19 20:00 78 11/21/19 16:00 97.9 88 18 109/52 (71) 94 11/21/19 16:00 87 Intake and Output 11/21/19 11/22/19 19:00 07:00 Intake Total 100 ml Balance 100 ml IV Total 100 ml # Voids 3 2 # Bowel Movements 3 2 Laboratory Tests Test 11/22/19 01:38 11/22/19 08:00 Stool Occult Blood Negative (NEGATIVE) White Blood Count 11.3 K/UL (4.8-10.8) #H Red Blood Count 2.94 M/UL (4.20-5.40) L Hemoglobin 9.5 G/DL (12.0-16.0) L Hematocrit 28.8 % (37.0-47.0) L Mean Corpuscular Volume 98 FL (80-99) Mean Corpuscular Hemoglobin 32.3 PG (27.0-31.0) H Mean Corpuscular Hemoglobin Concent 32.9 G/DL (32.0-36.0) Red Cell Distribution Width 13.4 % (11.6-14.8) Platelet Count 258 K/UL (150-450) Mean Platelet Volume 5.7 FL (6.5-10.1) L Neutrophils (%) (Auto) % (45.0-75.0) Lymphocytes (%) (Auto) % (20.0-45.0) Monocytes (%) (Auto) % (1.0-10.0) Eosinophils (%) (Auto) % (0.0-3.0) Basophils (%) (Auto) % (0.0-2.0) Differential Total Cells Counted 100 Neutrophils % (Manual) 89 % (45-75) H Lymphocytes % (Manual) 7 % (20-45) L Monocytes % (Manual) 4 % (1-10) Eosinophils % (Manual) 0 % (0-3) Basophils % (Manual) 0 % (0-2) Band Neutrophils 0 % (0-8) Platelet Estimate Adequate Platelet Morphology Normal Red Blood Cell Morphology Normal Sodium Level 137 MMOL/L (136-145) Potassium Level 4.4 MMOL/L (3.5-5.1) Chloride Level 101 MMOL/L (98-107) Carbon Dioxide Level 27 MMOL/L (21-32) Anion Gap 9 mmol/L (5-15) Blood Urea Nitrogen 19 mg/dL (7-18) H Creatinine 0.9 MG/DL (0.55-1.30) Estimat Glomerular Filtration Rate > 60 mL/min (>60) Glucose Level 101 MG/DL (74-106) Calcium Level 7.9 MG/DL (8.5-10.1) L Phosphorus Level 3.4 MG/DL (2.5-4.9) Magnesium Level 2.1 MG/DL (1.8-2.4) Total Bilirubin 0.2 MG/DL (0.2-1.0) Aspartate Amino Transf (AST/SGOT) 21 U/L (15-37) Alanine Aminotransferase (ALT/SGPT) 11 U/L (12-78) L Alkaline Phosphatase 52 U/L (46-116) Troponin I 0.013 ng/mL (0.000-0.056) Total Protein 7.0 G/DL (6.4-8.2) Albumin 2.7 G/DL (3.4-5.0) L Globulin 4.3 g/dL Albumin/Globulin Ratio 0.6 (1.0-2.7) L Thyroid Stimulating Hormone (TSH) 1.882 uiU/mL (0.358-3.740) Cortisol AM Sample Pending Microbiology Date/Time Source Procedure Growth Status 11/20/19 16:00 Nasal Nares MRSA Culture - Final Staphylococcus Aureus - Mrsa Complete 11/20/19 16:00 Rectum - Final NO CARBAPENEM-RESISTANT ENTEROBACTERI... Complete 11/20/19 16:00 Rectum VRE Culture - Final Enterococcus Faecium - Vre Complete Objective HEAD AND NECK: No JVD. LUNGS: Clear. CARDIOVASCULAR: Irregular S1 and S2 with no gallop or murmur. ABDOMEN: Soft, status post G-tube. EXTREMITIES: Lower extremities had 1+ pitting edema. Tomás Negrete MD Nov 22, 2019 15:16
--- NOTE | 2019-11-22 15:33 | NUR ---
CASE MANAGEMENT: INITIAL REVIEW 74YR OLD FEMALE BIBA FROM [facility] CONV CC:MALFUNCTION GASTRIC TUBE SI: MALFUNCTION PEG TUBE . DEHYDRATION 98.1 80 16 98/65 93% ON 2L NC H/H 9.9/29.8 BUN 19 ALB 2.7 PT 11.9 IS: IV ANCEF X1 IVF NS BOLUS X1 XARELTO GT QHS XRAY Abdomen 1v- Percutaneous gastrostomy tube balloon and tip in the gastric body. Oral contrast introduced via the tubing is located within the gastric lumen without evidence of extravasation. \: 2E TELE UNIT DCP: [facility] WHEN STABLE CASE MANAGEMENT: REVIEW 11/21/19 SI: MALFUNCTION PEG TUBE . DEHYDRATION 96.8 90 20 113/72 94% ON 2L NC CA+7.8 ALB 2.4 C-REC PROT 2.2 VIT B12 990 TIBC 218 VALPROIC ACID 26 OB STOOL NEGATIVE IS: FEOSOL GT QD ALBUMIN HUMAN IV X1 LOPRESSOR GT QD VALPROIC ACID GT BID XARELTO GT QHS NEURONTIN GT TID PRO-AMATINE GT TID XRAY Chest 1v-There is again appearance of ill-defined patchy opacity at the left base. Cardiac silhouette is enlarged. Dual-chamber pacemaker again noted. \: 2E TELE UNIT DCP: [facility] WHEN STABLE PLAN: ADJUST ANTICONVULSIVE MEDICATION CASE MANAGEMENT: REVIEW 11/22/19 SI: MALFUNCTION PEG TUBE . DEHYDRATION 97.7 84 20 120/62 96% ON 3L NC WBC 11.3 H/H 9.5/28.8 BUN 19 CA+7.9 ALB 2.7 IS: NEURONTIN GT TID DEPAKENE GT BID TEGRETOL GT BID RISPERDAL GT BID LOPRESSOR GT BID SYNTHROID GT QAM XARELTO GT QHS \: 2E TELE UNIT DCP: [facility] WHEN STABLE PLAN: COVID SWAB PRIOR TO RETURN TO FACILITY Addendum: 11/22/19 at 1604 by VIVIENNE RIVERA LVN NO COVID NEEDED PATIENT CAME FROM FACILITY COVID + AND WILL CONTINUE TO ISOLATE
[2019-11-22 16:00] VITALS: BP 116/54
[2019-11-22] MEDS: Zinc Oxide Oint 2oz TOPIC SCH ×2 (18:00→18:27)
[2019-11-22 20:00] VITALS: BP 101/66
--- NOTE | 2019-11-22 20:09 | NUR ---
HAND-OFF: Report given to Marzena Espinal. Patient sleeping, on 3 liters nasal cannula, O2 saturating at 96 percent, restraints in place, purewick in place, bed in lowest position, call light within reach, in no apparent distress, side rails up x 3, yellow gown and fall risk bracelet on, in no apparent distress.
--- NOTE | 2019-11-22 20:27 | NUR ---
NURSE NOTES: Received patient report from [facility]. Patient shows no signs of distress or pain at the time. Patient is sleeping at the moment. Soft wrist restraints are on bilaterally. IV site is intact. Patient is connected to peg tube running Jeveti 1.2 @50 cc. There was no residual. Shows no signs of distress or pain at the time. Bed is in the lowest position, call light is within reach. Will continue to monitor.
[2019-11-22] MEDS: Xarelto 15mg tab GT SCH (21:35)
--- NOTE | 2019-11-22 22:17 | Psych Consult Progress Note ---
Psychiatry Progress Note Psychiatry Progress Note Medications Current Medications Medications (Trade) Dose Ordered Sig/Charles Route PRN Reason Start Time Stop Time Status Last Admin Dose Admin Acetaminophen (Tylenol) 650 mg Q4H PRN GT pain/fever 11/20/19 23:21 12/20/19 23:20 Acetaminophen (Tylenol) 1,000 mg Q4H PRN GT MILD/TEMP 11/20/19 23:21 12/20/19 23:20 Ascorbic Acid (Vitamin C) 500 mg TWICE A DAY GT 11/21/19 09:00 12/21/19 08:59 11/22/19 18:27 Bisacodyl (Dulcolax) 10 mg PRN PRN RECTAL Constipation 11/21/19 18:45 02/18/20 18:44 Carbamazepine (TEGretol) 600 mg Q12HR GT 11/21/19 09:00 12/20/19 20:59 11/22/19 21:36 Docusate Sodium (Colace) 250 mg DAILY GT 11/21/19 09:00 12/21/19 08:59 11/22/19 09:41 Gabapentin (Neurontin) 100 mg THREE TIMES A DAY GT 11/21/19 09:00 12/21/19 08:59 11/22/19 18:27 Levothyroxine Sodium (Synthroid) 50 mcg ACBREAKFAST GT 11/21/19 06:30 12/21/19 06:29 11/22/19 06:11 Lorazepam (Ativan) 1 mg Q4H PRN GT For Anxiety 11/21/19 19:15 11/28/19 19:14 Magnesium Hydroxide (Mom) 30 ml DAILY GT 11/21/19 09:00 12/21/19 08:59 11/22/19 09:39 Metoprolol Tartrate (Lopressor) 12.5 mg Q12HR GT 11/21/19 21:00 02/19/20 20:59 11/22/19 09:39 Midodrine (Pro-Amatine) 2.5 mg THREE TIMES A DAY GT 11/21/19 18:00 02/19/20 08:59 11/22/19 09:40 Ondansetron HCl (Zofran) 4 mg Q6H PRN IVP Nausea & Vomiting 11/22/19 00:00 12/22/19 00:00 11/22/19 00:15 Risperidone (RisperDAL) 1.5 mg BID GT 11/22/19 09:00 01/06/20 08:59 11/22/19 18:27 Rivaroxaban (Xarelto) 15 mg BEDTIME GT 11/21/19 21:00 02/19/20 20:59 11/22/19 21:35 Sodium Phosphate (Fleet's Sodium Phosl Enema) 133 ml PRN PRN RECTAL Constipation 11/21/19 18:45 12/20/19 18:44 Valproic Acid (Depakene) 500 mg EVERY 12 HOURS GT 11/22/19 09:00 01/06/20 08:59 11/22/19 21:35 Zinc Oxide (Zinc Oxide) 1 applic THREE TIMES A DAY TOPIC 11/22/19 13:00 02/20/20 12:59 11/22/19 18:27 Neurological/Psychiatric: Reports: anxiety, depressed, emotional problems Allergies: Coded Allergies: No Known Allergies (Unverified , 10/04/18) Objective Data Height (Feet): 5 Height (Inches): 4.00 Weight (Pounds): 154 General Appearance: alert, confused, agitated Additional Comments: awake, disoriented. Mood is agitated. Affect is flat. Thought process, there is a paucity of thought content. Thought content, no suicidal or homicidal ideation. Cognition is impaired. Insight and judgment is impaired. Assessment/Plan Problem List: (1) AMS (altered mental status) ICD Codes: R41.82 - Altered mental status, unspecified SNOMED: 891451550 Status: unchanged Assessment/Plan: PLAN: 1. We will increase the Depakote to 500 mg b.i.d. 2. We will increase the risperidone to 125 mg b.i.d. 3. Haldol p.r.n. 4. Bilateral soft restraints. Jordan Valdes MD Nov 22, 2019 22:17
--- NOTE | 2019-11-22 22:34 | General Progress Note ---
Assessment/Plan Problem List: (1) Malfunction of gastrostomy tube ICD Codes: K94.23 - Gastrostomy malfunction SNOMED: 701491213 (2) Dehydration ICD Codes: E86.0 - Dehydration SNOMED: 08758109 (3) Hypotension ICD Codes: I95.9 - Hypotension, unspecified SNOMED: 12289845 (4) Anemia ICD Codes: D64.9 - Anemia, unspecified SNOMED: 847471798 (5) Hypothyroidism ICD Codes: E03.9 - Hypothyroidism, unspecified SNOMED: 17481005 Status: progressing Assessment/Plan: afebrile low bp anemia celluitis around peg abx per id lh/o covid in the past Subjective ROS Limited/Unobtainable: Yes Allergies: Coded Allergies: No Known Allergies (Unverified , 10/04/18) Objective Last 24 Hour Vital Signs Date Time Temp Pulse Resp B/P (MAP) Pulse Ox O2 Delivery O2 Flow Rate FiO2 11/22/19 21:00 70 101/66 11/22/19 16:00 97.5 79 20 116/54 (74) 96 11/22/19 16:00 78 11/22/19 12:00 71 11/22/19 12:00 97.8 80 20 110/55 (73) 97 11/22/19 09:39 72 120/62 11/22/19 09:00 Nasal Cannula 3.0 11/22/19 08:00 72 11/22/19 08:00 97.7 84 20 120/62 (81) 96 11/22/19 04:00 96.2 70 17 120/53 (75) 96 11/22/19 04:00 72 11/22/19 00:00 96.4 62 18 117/56 (76) 97 11/22/19 00:00 95 Intake and Output 11/21/19 11/22/19 19:00 07:00 Intake Total 100 ml 50 ml Balance 100 ml 50 ml IV Total 100 ml Tube Feeding 50 ml # Voids 3 2 # Bowel Movements 3 2 Laboratory Tests 11/22/19 01:38: Stool Occult Blood Negative 11/22/19 08:00: White Blood Count 11.3#H, Red Blood Count 2.94L, Hemoglobin 9.5L, Hematocrit 28.8L, Mean Corpuscular Volume 98, Mean Corpuscular Hemoglobin 32.3H, Mean Corpuscular Hemoglobin Concent 32.9, Red Cell Distribution Width 13.4, Platelet Count 258, Mean Platelet Volume 5.7L, Neutrophils (%) (Auto) , Lymphocytes (%) ( Auto) , Monocytes (%) (Auto) , Eosinophils (%) (Auto) , Basophils (%) (Auto) , Differential Total Cells Counted 100, Neutrophils % (Manual) 89H, Lymphocytes % (Manual) 7L, Monocytes % (Manual) 4, Eosinophils % (Manual) 0, Basophils % ( Manual) 0, Band Neutrophils 0, Platelet Estimate Adequate, Platelet Morphology Normal, Red Blood Cell Morphology Normal, Sodium Level 137, Potassium Level 4.4 , Chloride Level 101, Carbon Dioxide Level 27, Anion Gap 9, Blood Urea Nitrogen 19H, Creatinine 0.9, Estimat Glomerular Filtration Rate > 60, Glucose Level 101 , Calcium Level 7.9L, Phosphorus Level 3.4, Magnesium Level 2.1, Total Bilirubin 0.2, Aspartate Amino Transf (AST/SGOT) 21, Alanine Aminotransferase ( ALT/SGPT) 11L, Alkaline Phosphatase 52, Troponin I 0.013, Total Protein 7.0, Albumin 2.7L, Globulin 4.3, Albumin/Globulin Ratio 0.6L, Thyroid Stimulating Hormone (TSH) 1.882, Cortisol AM Sample 10.7 Height (Feet): 5 Height (Inches): 4.00 Weight (Pounds): 154 Jose Woodard MD Nov 22, 2019 22:34
[2019-11-23] VITALS: BP 104/55
[2019-11-23 04:00] VITALS: BP 154/65
--- NOTE | 2019-11-23 06:27 | Consultation ---
History of Present Illness General Chief Complaint: Malfunctioning Gastric Tube Present Illness Allergies: Coded Allergies: No Known Allergies (Unverified , 10/04/18) Medication History Scheduled Ascorbic Acid* (Ascorbic Acid*), 500 MG GT TWICE A DAY, (Reported) Carbamazepine (Tegretol*), 600 MG PO DAILY, (Reported) Carbamazepine (Tegretol*), 600 MG PO DAILY, (Reported) Carbamazepine (Tegretol*), 600 MG GT Q12HR, (Reported) Citalopram Hydrobromide* (Celexa*), 20 MG GT DAILY, (Reported) Cranberry Fruit Concentrate (Cranberry), 450 MG PO BID, (Reported) Divalproex Sodium* (Depakote Er*), 250 MG GT EVERY 12 HOURS, (Reported) Docusate Sodium* (Colace*), 250 MG GT DAILY, (Reported) Ferrous Sulfate* (Ferrous Sulfate*), 325 MG GT DAILY, (Reported) Gabapentin* (Neurontin*), 100 MG GT THREE TIMES A DAY, (Reported) Levothyroxine Sodium* (Synthroid*), 50 MCG ORAL DAILY, (Reported) Levothyroxine Sodium* (Synthroid*), 50 MCG GT DAILY, (Reported) Magnesium Hydroxide* (Milk Of Magnesia*), 30 ML ORAL DAILY, (Reported) Magnesium Hydroxide* (Milk Of Magnesia*), 30 ML GT DAILY, (Reported) Metoprolol Succinate* (Metoprolol Succinate*), 25 MG ORAL DAILY, (Reported) Metoprolol Tartrate* (Metoprolol Tartrate*), 25 MG GT DAILY, (Reported) Na Phos,M-B/Na Phos,Di-Ba* (Fleet Enema*), 133 ML RECTAL PRN, (Reported) Risperidone* (Risperdal*), 1 MG PO BID, (Reported) Risperidone* (Risperdal*), 1 MG GT TWICE A DAY, (Reported) Rivaroxaban (Xarelto*), 15 MG GT BEDTIME, (Reported) Zinc (Zinc), 440 MG GT DAILY, (Reported) Scheduled PRN Acetaminophen* (Tylenol Extra Strength*), 1,000 MG GT Q4HR PRN for Mild Pain/ Temp > 100.5, (Reported) Acetaminophen* (Acetaminophen 325MG Tablet*), 650 MG GT Q4H PRN for pain/fever, (Reported) Miscellaneous Medications Bisacodyl (Bisacodyl), 10 MG RC, (Reported) Patient History Healthcare decision maker Resuscitation status Advanced Directive on File Physical Exam Last 24 Hour Vital Signs Date Time Temp Pulse Resp B/P (MAP) Pulse Ox O2 Delivery O2 Flow Rate FiO2 11/23/19 00:00 65 11/23/19 00:00 98.1 77 19 104/55 (71) 100 11/22/19 21:00 70 101/66 11/22/19 21:00 Nasal Cannula 3.0 11/22/19 20:00 73 11/22/19 20:00 97.9 70 19 101/66 (78) 98 11/22/19 16:00 97.5 79 20 116/54 (74) 96 11/22/19 16:00 78 11/22/19 12:00 71 11/22/19 12:00 97.8 80 20 110/55 (73) 97 11/22/19 09:39 72 120/62 11/22/19 09:00 Nasal Cannula 3.0 11/22/19 08:00 72 11/22/19 08:00 97.7 84 20 120/62 (81) 96 Intake and Output 11/22/19 11/23/19 19:00 07:00 Intake Total 550 ml Balance 550 ml Tube Feeding 550 ml # Bowel Movements 1 Laboratory Tests Test 11/22/19 08:00 White Blood Count 11.3 K/UL (4.8-10.8) #H Red Blood Count 2.94 M/UL (4.20-5.40) L Hemoglobin 9.5 G/DL (12.0-16.0) L Hematocrit 28.8 % (37.0-47.0) L Mean Corpuscular Volume 98 FL (80-99) Mean Corpuscular Hemoglobin 32.3 PG (27.0-31.0) H Mean Corpuscular Hemoglobin Concent 32.9 G/DL (32.0-36.0) Red Cell Distribution Width 13.4 % (11.6-14.8) Platelet Count 258 K/UL (150-450) Mean Platelet Volume 5.7 FL (6.5-10.1) L Neutrophils (%) (Auto) % (45.0-75.0) Lymphocytes (%) (Auto) % (20.0-45.0) Monocytes (%) (Auto) % (1.0-10.0) Eosinophils (%) (Auto) % (0.0-3.0) Basophils (%) (Auto) % (0.0-2.0) Differential Total Cells Counted 100 Neutrophils % (Manual) 89 % (45-75) H Lymphocytes % (Manual) 7 % (20-45) L Monocytes % (Manual) 4 % (1-10) Eosinophils % (Manual) 0 % (0-3) Basophils % (Manual) 0 % (0-2) Band Neutrophils 0 % (0-8) Platelet Estimate Adequate Platelet Morphology Normal Red Blood Cell Morphology Normal Sodium Level 137 MMOL/L (136-145) Potassium Level 4.4 MMOL/L (3.5-5.1) Chloride Level 101 MMOL/L (98-107) Carbon Dioxide Level 27 MMOL/L (21-32) Anion Gap 9 mmol/L (5-15) Blood Urea Nitrogen 19 mg/dL (7-18) H Creatinine 0.9 MG/DL (0.55-1.30) Estimat Glomerular Filtration Rate > 60 mL/min (>60) Glucose Level 101 MG/DL (74-106) Calcium Level 7.9 MG/DL (8.5-10.1) L Phosphorus Level 3.4 MG/DL (2.5-4.9) Magnesium Level 2.1 MG/DL (1.8-2.4) Total Bilirubin 0.2 MG/DL (0.2-1.0) Aspartate Amino Transf (AST/SGOT) 21 U/L (15-37) Alanine Aminotransferase (ALT/SGPT) 11 U/L (12-78) L Alkaline Phosphatase 52 U/L (46-116) Troponin I 0.013 ng/mL (0.000-0.056) Total Protein 7.0 G/DL (6.4-8.2) Albumin 2.7 G/DL (3.4-5.0) L Globulin 4.3 g/dL Albumin/Globulin Ratio 0.6 (1.0-2.7) L Thyroid Stimulating Hormone (TSH) 1.882 uiU/mL (0.358-3.740) Cortisol AM Sample 10.7 UG/DL Height (Feet): 5 Height (Inches): 4.00 Weight (Pounds): 154 Medications Current Medications Medications (Trade) Dose Ordered Sig/Charles Route PRN Reason Start Time Stop Time Status Last Admin Dose Admin Acetaminophen (Tylenol) 650 mg Q4H PRN GT pain/fever 11/20/19 23:21 12/20/19 23:20 Acetaminophen (Tylenol) 1,000 mg Q4H PRN GT MILD/TEMP 11/20/19 23:21 12/20/19 23:20 Ascorbic Acid (Vitamin C) 500 mg TWICE A DAY GT 11/21/19 09:00 12/21/19 08:59 11/22/19 18:27 Bisacodyl (Dulcolax) 10 mg PRN PRN RECTAL Constipation 11/21/19 18:45 02/18/20 18:44 Carbamazepine (TEGretol) 600 mg Q12HR GT 11/21/19 09:00 12/20/19 20:59 11/22/19 21:36 Docusate Sodium (Colace) 250 mg DAILY GT 11/21/19 09:00 12/21/19 08:59 11/22/19 09:41 Gabapentin (Neurontin) 100 mg THREE TIMES A DAY GT 11/21/19 09:00 12/21/19 08:59 11/22/19 18:27 Levothyroxine Sodium (Synthroid) 50 mcg ACBREAKFAST GT 11/21/19 06:30 12/21/19 06:29 11/23/19 05:44 Lorazepam (Ativan) 1 mg Q4H PRN GT For Anxiety 11/21/19 19:15 11/28/19 19:14 Magnesium Hydroxide (Mom) 30 ml DAILY GT 11/21/19 09:00 12/21/19 08:59 11/22/19 09:39 Metoprolol Tartrate (Lopressor) 12.5 mg Q12HR GT 11/21/19 21:00 02/19/20 20:59 11/22/19 09:39 Midodrine (Pro-Amatine) 2.5 mg THREE TIMES A DAY GT 11/21/19 18:00 02/19/20 08:59 11/22/19 09:40 Ondansetron HCl (Zofran) 4 mg Q6H PRN IVP Nausea & Vomiting 11/22/19 00:00 8/5/20 00:00 11/22/19 00:15 Risperidone (RisperDAL) 1.5 mg BID GT 11/22/19 09:00 01/06/20 08:59 11/22/19 18:27 Rivaroxaban (Xarelto) 15 mg BEDTIME GT 11/21/19 21:00 02/19/20 20:59 11/22/19 21:35 Sodium Phosphate (Fleet's Sodium Phosl Enema) 133 ml PRN PRN RECTAL Constipation 11/21/19 18:45 12/20/19 18:44 Valproic Acid (Depakene) 500 mg EVERY 12 HOURS GT 11/22/19 09:00 01/06/20 08:59 11/22/19 21:35 Zinc Oxide (Zinc Oxide) 1 applic THREE TIMES A DAY TOPIC 11/22/19 13:00 02/20/20 12:59 11/22/19 18:27 Assessment/Plan Assessment/Plan: Hematology Consultation RFC: IVC Filter, and gi bleed REQ MD: Jose Woodard DOS: 11/23/2019 ID 74-year-old female who presented after increased vomiting from nursing facility. Patient reportedly had multiple episodes of nonbloody emesis. Patient reports being a smoker. She has prior history of dementia. History is markedly limited by poor historian. Patient denies any fever. She denies any significant abdominal pain. GI consulted for reported abdominal pain and nausea. ROS limited, patient with history of dementia unable to provide any significant history. The patient believes she is . She denies any abdominal pain or vomiting at this time. She reported that she had some vomiting last night. Denies any hematemesis or coffee-ground. Patient unable to recall any past history of endoscopic or colonoscopy at this time. Labs reviewed; no anemia, no leukocytosis, no transaminitis. She was noted to have potential gi bleeding and cards consulted as well Noted to be anemic, now improved, off iron. Home Meds Reported Medications Cranberry (CRANBERRY) 400 Mg Capsule, 450 MG PO, CAP 10/04/18 Carbamazepine (TEGRETOL*) 200 Mg Tablet, 600 MG PO DAILY, TAB 10/04/18 Metoprolol Succinate* (METOPROLOL SUCCINATE*) 25 Mg Tab.er.24h, 25 MG ORAL DAILY , TAB 10/04/18 Rivaroxaban (XARELTO*) 10 Mg Tablet, 15 MG ORAL DAILY, #30 TAB 0 Refills 10/04/18 Gabapentin* (NEURONTIN*) 100 Mg Capsule, 100 MG ORAL THREE TIMES A DAY, #15 CAP 0 Refills 10/04/18 Levothyroxine Sodium* (LEVOTHYROXINE SODIUM*) 100 Mcg Vial, 50 MCG IV DAILY, VIAL 10/04/18 Med list reviewed/reconciled: Yes Allergies: Coded Allergies: No Known Allergies (Unverified , 10/04/18) Limited by: medical condition History Provided By: Patient, Medical Record PMH Narrative Past Medical History: see triage record Reviewed Nursing Documentation: PMH: Agreed; PSxH: Agreed Review of Systems: negative except mentioned in HPI Social History: Denies: smoking, alcohol use, drug use, othe PE Head: normocephalic EENT: PERRL/EOMI, normal ENT inspection Neck: supple Resp: normal breath sounds, no respiratory distress Card: normal rate Gastr: normal inspection, non tender, soft, normal bowel sounds, non-distended Rectal: deferred Genitourinary: no CVA tenderness Musc: normal inspection, back normal Neuro: normal inspection, alert, oriented x3, responsive Psych: normal inspection, judgement/insight normal, memory normal Skin: normal inspection, normal color, no rash, warm/dry Lymphatic: normal inspection, no adenopathy Labs: noted Imaging: reviewed Assessment and Recs: # DVT of the lower legs s/p IVC filter, currently at home was on xarelto --> PT/INR is wnl, continue to monitor if any procedure initiated --> duplex re-ordered to see if has resolution of dvt, is negative --> currently is back on xarelto, no bleeding noted --> cards recs reviewed # Anemia of chronic disease due to underlying chronic medical issues --> Epogen or iron at this time is not particularly indicated --> Medications have been reviewed --> low threshold for gi evaluation in case has occult + --> hgb 10.4-->9.4 # Nausea/vomiting as per Gi --> continue to trend, zofran prn basis --> ct was negative # Pacemaker --> appreciate cards recs, interr as needed # Hyponatremia --> as per renal # CHF (congestive heart failure) --> as per cards # Dementia # Dehydration # AFib, management as per cards --> on xarelto po --> per cards # Dvt ppx xarelto The timing of this note does not necessarily reflect the time of the patient was seen. Greatly appreciate consultation! Guido Hoover MD Nov 23, 2019 06:27
[2019-11-23 07:05] LABS: HEMATOCRIT 31.8 % (37.0-47.0); HEMOGLOBIN 10.2 G/DL (12.0-16.0); MEAN CORPUSCULAR VOLUME 99 FL (80-99); PLATELET COUNT 277 K/UL (150-450); RED CELL DISTRIBUTION WIDTH 14.3 % (11.6-14.8); WHITE BLOOD COUNT 14.5 K/UL (4.8-10.8)
[2019-11-23 07:44] LABS: ANION GAP 9 mmol/L (5-15); BLOOD UREA NITROGEN 24 mg/dL (7-18); CALCIUM 8.7 MG/DL (8.5-10.1); CARBON DIOXIDE 27 MMOL/L (21-32); CHLORIDE 103 MMOL/L (98-107); CREATININE 0.9 MG/DL (0.55-1.30); POTASSIUM 4.5 MMOL/L (3.5-5.1); SODIUM 139 MMOL/L (136-145)
--- NOTE | 2019-11-23 07:45 | NUR ---
HAND-OFF: Report given to [facility] Boyce. patient shows no signs of distress or pain at the time. Endorsed plan of care.
--- NOTE | 2019-11-23 07:50 | NUR ---
NURSE NOTES: Received patient from [facility]. Patient is AAO x1. No s/s of pain noted at this time. No s/s of respiratory distress or SOB noted. Patient is on 3L NC. Patient is on GT running Jevity 1.2 at 50cc/ hr for 20 hours. IV sites are intact, patent and SL. Noted patient has pureweek on and draining to gravity. Bed is on lowest level with bedside rails up x3, brakes engaged for safety, call light within reach. Will continue with the plan of care.
[2019-11-23 08:00] VITALS: BP 158/70
[2019-11-23] MEDS: Ascorbic Acid 500mg tab GT SCH ×2 (09:31→17:47)
[2019-11-23] MEDS: Metoprolol Tartrate 12.5mg TAB GT SCH (09:33)
[2019-11-23] MEDS: Valproic Acid 250mg/5ml Liquid GT SCH (09:34)
[2019-11-23] MEDS: carBAMazepine 200mg tab GT SCH (09:34)
[2019-11-23] MEDS: Docusate 100mg/10ml Liq GT SCH (09:35)
[2019-11-23] MEDS: Milk of Magnesia 30ml Ud GT SCH (09:35)
[2019-11-23] MEDS: Zinc Oxide Oint 2oz TOPIC SCH ×3 (09:49→17:59)
--- NOTE | 2019-11-23 10:45 | NUR ---
*-* INSURANCE *-* UPDATED CLINICALS AND REVIEWS HAVE BEEN FAXED TO: LESLEY MOREL F: [phone] F: [phone]
--- NOTE | 2019-11-23 11:09 | General Progress Note ---
Assessment/Plan Problem List: (1) Anemia ICD Codes: D64.9 - Anemia, unspecified SNOMED: 488353601 (2) Malfunction of percutaneous endoscopic gastrostomy (PEG) tube ICD Codes: K94.23 - Gastrostomy malfunction SNOMED: 556470294 (3) AMS (altered mental status) ICD Codes: R41.82 - Altered mental status, unspecified SNOMED: 159727876 (4) Hypothyroidism ICD Codes: E03.9 - Hypothyroidism, unspecified SNOMED: 42795780 (5) Hypotension ICD Codes: I95.9 - Hypotension, unspecified SNOMED: 13527233 (6) Dehydration ICD Codes: E86.0 - Dehydration SNOMED: 87227956 Status: progressing Assessment/Plan: GTF nara GT care monitor for residuals anemia work up fu stool ob GI procedures if needed Subjective ROS Limited/Unobtainable: No Allergies: Coded Allergies: No Known Allergies (Unverified , 10/04/18) Objective Last 24 Hour Vital Signs Date Time Temp Pulse Resp B/P (MAP) Pulse Ox O2 Delivery O2 Flow Rate FiO2 11/23/19 09:33 85 158/70 11/23/19 09:00 Nasal Cannula 3.0 11/23/19 08:00 97.5 88 20 158/70 (99) 98 11/23/19 08:00 88 11/23/19 04:00 97.7 60 18 154/65 (94) 99 11/23/19 00:00 65 11/23/19 00:00 98.1 77 19 104/55 (71) 100 11/22/19 21:00 70 101/66 11/22/19 21:00 Nasal Cannula 3.0 11/22/19 20:00 73 11/22/19 20:00 97.9 70 19 101/66 (78) 98 11/22/19 16:00 97.5 79 20 116/54 (74) 96 11/22/19 16:00 78 11/22/19 12:00 71 11/22/19 12:00 97.8 80 20 110/55 (73) 97 Intake and Output 11/22/19 11/23/19 19:00 07:00 Intake Total 550 ml 50 ml Balance 550 ml 50 ml Tube Feeding 550 ml 50 ml # Bowel Movements 1 Laboratory Tests 11/23/19 06:24: White Blood Count 14.5H, Red Blood Count 3.20L, Hemoglobin 10.2L, Hematocrit 31.8L, Mean Corpuscular Volume 99, Mean Corpuscular Hemoglobin 32.0H, Mean Corpuscular Hemoglobin Concent 32.2, Red Cell Distribution Width 14.3, Platelet Count 277, Mean Platelet Volume 5.7L, Neutrophils (%) (Auto) , Lymphocytes (%) ( Auto) , Monocytes (%) (Auto) , Eosinophils (%) (Auto) , Basophils (%) (Auto) , Differential Total Cells Counted 100, Neutrophils % (Manual) 88H, Lymphocytes % (Manual) 3L, Monocytes % (Manual) 7, Eosinophils % (Manual) 2, Basophils % ( Manual) 0, Band Neutrophils 0, Platelet Estimate Adequate, Platelet Morphology Normal, Anisocytosis 1+, Sodium Level 139, Potassium Level 4.5, Chloride Level 103, Carbon Dioxide Level 27, Anion Gap 9, Blood Urea Nitrogen 24H, Creatinine 0.9, Estimat Glomerular Filtration Rate > 60, Glucose Level 105, Calcium Level 8.7 Height (Feet): 5 Height (Inches): 4.00 Weight (Pounds): 154 General Appearance: no apparent distress EENT: normal ENT inspection Neck: supple Cardiovascular: normal rate Respiratory/Chest: decreased breath sounds Abdomen: normal bowel sounds, non tender, soft Extremities: non-tender Kvng Baez MD Nov 23, 2019 11:08
[2019-11-23 12:00] VITALS: BP 108/52
--- NOTE | 2019-11-23 13:12 | NUR ---
CASE MANAGEMENT: REVIEW 11/23/19 SI: VRE+ . MRSA+ . MALFUNCTION PEG TUBE . DEHYDRATION 97.7 74 18 108/52 97% ON 3L NC WBC 14.5 BUN 24 IS: LOPRESSOR GT QD VALPROIC ACID GT BID TEGRETOL GT BID RISPERDAL GT BID XARELTO GT QHS NEURONTIN GT TID PRO-AMATINE GT TID \: 2E TELE UNIT DCP:[facility] PLAN: WBC INCREASING CONSULT WITH ID FOR PLAN FOR DISCHARGE
--- NOTE | 2019-11-23 13:57 | NUR ---
NURSE NOTES:WOUND CARE NOTES:Pt presented on admission with Incontinence Associated Dermatitis perineum and medial aspects of both upper thighs.Non -Blanching erythema without induration or tenderness when palpated. Both heels are boggy with non-blanching erythema. Tx.Plan:Apply Moisture Barrier Paste to perineum, buttocks and medial aspects of thighs with each Incontinence care. Cover Sacrum and both hips with Optifoam drsgs. Change every 3 days and prn. Reposition at least every 2hours or as tolerated. Off-load heels with Pillow.
--- NOTE | 2019-11-23 14:18 | Nephrology Progress Note ---
Assessment/Plan Problem List: (1) Hypotension (2) Dehydration Assessment Hypotension Anemia Organic brain syndrome Multiple psych medications Plan Stable from renal standpoint of view at this time. Blood pressure is holding up well. Morning cortisol 10.7 Midodrin for low blood pressure Anemia work-up IV fluid bolus as needed Per orders Per consultants Subjective ROS Limited/Unobtainable: No Constitutional: Reports: malaise, weakness Objective Objective Last 24 Hour Vital Signs Date Time Temp Pulse Resp B/P (MAP) Pulse Ox O2 Delivery O2 Flow Rate FiO2 11/23/19 12:00 74 11/23/19 12:00 97.7 74 18 108/52 (70) 97 11/23/19 09:33 85 158/70 11/23/19 09:00 Nasal Cannula 3.0 11/23/19 08:00 97.5 88 20 158/70 (99) 98 11/23/19 08:00 88 11/23/19 04:00 97.7 60 18 154/65 (94) 99 11/23/19 00:00 65 11/23/19 00:00 98.1 77 19 104/55 (71) 100 11/22/19 21:00 70 101/66 11/22/19 21:00 Nasal Cannula 3.0 11/22/19 20:00 73 11/22/19 20:00 97.9 70 19 101/66 (78) 98 11/22/19 16:00 97.5 79 20 116/54 (74) 96 11/22/19 16:00 78 Intake and Output 11/22/19 11/23/19 19:00 07:00 Intake Total 550 ml 50 ml Balance 550 ml 50 ml Tube Feeding 550 ml 50 ml # Bowel Movements 1 Laboratory Tests 11/23/19 06:24: White Blood Count 14.5H, Red Blood Count 3.20L, Hemoglobin 10.2L, Hematocrit 31.8L, Mean Corpuscular Volume 99, Mean Corpuscular Hemoglobin 32.0H, Mean Corpuscular Hemoglobin Concent 32.2, Red Cell Distribution Width 14.3, Platelet Count 277, Mean Platelet Volume 5.7L, Neutrophils (%) (Auto) , Lymphocytes (%) ( Auto) , Monocytes (%) (Auto) , Eosinophils (%) (Auto) , Basophils (%) (Auto) , Differential Total Cells Counted 100, Neutrophils % (Manual) 88H, Lymphocytes % (Manual) 3L, Monocytes % (Manual) 7, Eosinophils % (Manual) 2, Basophils % ( Manual) 0, Band Neutrophils 0, Platelet Estimate Adequate, Platelet Morphology Normal, Anisocytosis 1+, Sodium Level 139, Potassium Level 4.5, Chloride Level 103, Carbon Dioxide Level 27, Anion Gap 9, Blood Urea Nitrogen 24H, Creatinine 0.9, Estimat Glomerular Filtration Rate > 60, Glucose Level 105, Calcium Level 8.7 Height (Feet): 5 Height (Inches): 4.00 Weight (Pounds): 154 General Appearance: no apparent distress, lethargic Cardiovascular: tachycardia Respiratory/Chest: decreased breath sounds Abdomen: soft Kerwin Womack MD Nov 23, 2019 14:17
--- NOTE | 2019-11-23 15:30 | Infectious Diseases Prog Note ---
Assessment/Plan Assessment/Plan IMPRESSION: G-tube malfunctioning resolved Recent positive COVID-19 test Atrial fibrillation, Hypertension, Diabetes mellitus, Failure to thrive, Dementia, Anemia. 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 Can be discharged to SNF Subjective ROS Limited/Unobtainable: Yes Constitutional: Denies: fever Allergies: Coded Allergies: No Known Allergies (Unverified , 10/04/18) Objective Last 24 Hour Vital Signs Date Time Temp Pulse Resp B/P (MAP) Pulse Ox O2 Delivery O2 Flow Rate FiO2 11/23/19 12:00 74 11/23/19 12:00 97.7 74 18 108/52 (70) 97 11/23/19 09:33 85 158/70 11/23/19 09:00 Nasal Cannula 3.0 11/23/19 08:00 97.5 88 20 158/70 (99) 98 11/23/19 08:00 88 11/23/19 04:00 97.7 60 18 154/65 (94) 99 11/23/19 00:00 65 11/23/19 00:00 98.1 77 19 104/55 (71) 100 11/22/19 21:00 70 101/66 11/22/19 21:00 Nasal Cannula 3.0 11/22/19 20:00 73 11/22/19 20:00 97.9 70 19 101/66 (78) 98 11/22/19 16:00 97.5 79 20 116/54 (74) 96 11/22/19 16:00 78 Height (Feet): 5 Height (Inches): 4.00 Weight (Pounds): 154 General Appearance: no acute distress Respiratory/Chest: no respiratory distress Cardiovascular: normal rate Abdomen: soft, non tender Extremities: no edema Neurologic/Psychiatric: unresponsiveness Microbiology Date/Time Source Procedure Growth Status 11/20/19 16:00 Nasal Nares MRSA Culture - Final Staphylococcus Aureus - Mrsa Complete 11/20/19 16:00 Rectum - Final NO CARBAPENEM-RESISTANT ENTEROBACTERI... Complete 11/20/19 16:00 Rectum VRE Culture - Final Enterococcus Faecium - Vre Complete Laboratory Tests Test 11/23/19 06:24 White Blood Count 14.5 K/UL (4.8-10.8) H Red Blood Count 3.20 M/UL (4.20-5.40) L Hemoglobin 10.2 G/DL (12.0-16.0) L Hematocrit 31.8 % (37.0-47.0) L Mean Corpuscular Volume 99 FL (80-99) Mean Corpuscular Hemoglobin 32.0 PG (27.0-31.0) H Mean Corpuscular Hemoglobin Concent 32.2 G/DL (32.0-36.0) Red Cell Distribution Width 14.3 % (11.6-14.8) Platelet Count 277 K/UL (150-450) Mean Platelet Volume 5.7 FL (6.5-10.1) L Neutrophils (%) (Auto) % (45.0-75.0) Lymphocytes (%) (Auto) % (20.0-45.0) Monocytes (%) (Auto) % (1.0-10.0) Eosinophils (%) (Auto) % (0.0-3.0) Basophils (%) (Auto) % (0.0-2.0) Differential Total Cells Counted 100 Neutrophils % (Manual) 88 % (45-75) H Lymphocytes % (Manual) 3 % (20-45) L Monocytes % (Manual) 7 % (1-10) Eosinophils % (Manual) 2 % (0-3) Basophils % (Manual) 0 % (0-2) Band Neutrophils 0 % (0-8) Platelet Estimate Adequate Platelet Morphology Normal Anisocytosis 1+ Sodium Level 139 MMOL/L (136-145) Potassium Level 4.5 MMOL/L (3.5-5.1) Chloride Level 103 MMOL/L (98-107) Carbon Dioxide Level 27 MMOL/L (21-32) Anion Gap 9 mmol/L (5-15) Blood Urea Nitrogen 24 mg/dL (7-18) H Creatinine 0.9 MG/DL (0.55-1.30) Estimat Glomerular Filtration Rate > 60 mL/min (>60) Glucose Level 105 MG/DL (74-106) Calcium Level 8.7 MG/DL (8.5-10.1) Current Medications Medications (Trade) Dose Ordered Sig/Charles Route PRN Reason Start Time Stop Time Status Last Admin Dose Admin Acetaminophen (Tylenol) 650 mg Q4H PRN GT pain/fever 11/20/19 23:21 12/20/19 23:20 Acetaminophen (Tylenol) 1,000 mg Q4H PRN GT MILD/TEMP 11/20/19 23:21 12/20/19 23:20 Ascorbic Acid (Vitamin C) 500 mg TWICE A DAY GT 11/21/19 09:00 12/21/19 08:59 11/23/19 09:31 Bisacodyl (Dulcolax) 10 mg PRN PRN RECTAL Constipation 11/21/19 18:45 02/18/20 18:44 Carbamazepine (TEGretol) 600 mg Q12HR GT 11/21/19 09:00 12/20/19 20:59 11/23/19 09:34 Docusate Sodium (Colace) 250 mg DAILY GT 11/21/19 09:00 12/21/19 08:59 11/23/19 09:35 Gabapentin (Neurontin) 100 mg THREE TIMES A DAY GT 11/21/19 09:00 12/21/19 08:59 11/23/19 13:29 Levothyroxine Sodium (Synthroid) 50 mcg ACBREAKFAST GT 11/21/19 06:30 12/21/19 06:29 11/23/19 05:44 Lorazepam (Ativan) 1 mg Q4H PRN GT For Anxiety 11/21/19 19:15 11/28/19 19:14 Magnesium Hydroxide (Mom) 30 ml DAILY GT 11/21/19 09:00 12/21/19 08:59 11/23/19 09:35 Metoprolol Tartrate (Lopressor) 12.5 mg Q12HR GT 11/21/19 21:00 02/19/20 20:59 11/23/19 09:33 Midodrine (Pro-Amatine) 2.5 mg THREE TIMES A DAY GT 11/21/19 18:00 02/19/20 08:59 11/23/19 13:29 Ondansetron HCl (Zofran) 4 mg Q6H PRN IVP Nausea & Vomiting 11/22/19 00:00 12/22/19 00:00 11/22/19 00:15 Risperidone (RisperDAL) 1.5 mg BID GT 11/22/19 09:00 01/06/20 08:59 11/23/19 09:33 Rivaroxaban (Xarelto) 15 mg BEDTIME GT 11/21/19 21:00 02/19/20 20:59 11/22/19 21:35 Sodium Phosphate (Fleet's Sodium Phosl Enema) 133 ml PRN PRN RECTAL Constipation 11/21/19 18:45 12/20/19 18:44 Valproic Acid (Depakene) 500 mg EVERY 12 HOURS GT 11/22/19 09:00 01/06/20 08:59 11/23/19 09:34 Zinc Oxide (Zinc Oxide) 1 applic THREE TIMES A DAY TOPIC 11/22/19 13:00 02/20/20 12:59 11/23/19 13:33 Roberth Topete MD Nov 23, 2019 15:30
--- NOTE | 2019-11-23 15:44 | NUR ---
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 SPOKE TO SARAH FROM [facility] TO MAKE AWARE THAT PATIENT WILL BE RETURNING TODAY ADMISSIONS STATED FACILITY IS UNABLE TO ACCEPTED PATIENTS BACK TODAY D/T NO NURSE AND NEED TO PREPARE ROOM; DASIA STATED TO SARAH THAT PATIENT CAME TO [facility] COVID +; DESPITE PATIENT COMING TO [facility] [place] +COVID-19; SARAH IS REQUESTING PATIENT TO COME IN AM OR FRIDAY DASIA EXPLAINED THAT THIS IS NOT ACCEPTABLE AND WILL BE CALLING AGAIN WITH CONFIRMED DC ORDER Addendum: 11/23/19 at 1553 by VIVIENNE RIVERA LVN DASIA SPOKE WITH SARAH AGAIN REQUESTING BED; NOW ABLE TO ACCEPTED PATIENT BACK, BUT IN AM; DASIA EXPLAINED AGAIN THIS IS UNACCEPTABLE; FACILITY GIVEN PLENTY OF TIME TO ARRANGE BED CM FAXED TO SISTER FACILITY; GLORIA SCRUGGS
[2019-11-23 16:00] VITALS: BP 105/55
--- NOTE | 2019-11-23 16:45 | NUR ---
*-*DISCHARGE PLANNED*-* PATIENT HAS BEEN ACCEPTED AND WILL BE DISCHARGED BACK TO : [facility] CONV [phone] FOR NURSE TO NURSE REPORT ROOM# 34.[facility] TRANSPORTATION SET FOR 5:45PM S/W THU [id number]. PLACED A CALL TOO NEXT TO KIN DR. ROGERS, NO ANSWER, LEFT VOICE MESSAGE.
--- NOTE | 2019-11-23 16:54 | Cardiac Electrophysiology PN ---
Assessment/Plan Assessment/Plan 1. Hypotension. On midodrine 2. Atrial fibrillation, on metoprolol 12.5 bid and Xarelto 15 mg at bedtime. 3. Status post DDD left sided Medtronic pacemaker. 4. G-tube malfunction. Further evaluation by Dr. Alvares. 5. Seizure disorder. 6. Lower extremity edema. 7. Recent positive Covid DW RN Subjective Subjective In Covid isolation. Atrial fib rate OK. Objective Last 24 Hour Vital Signs Date Time Temp Pulse Resp B/P (MAP) Pulse Ox O2 Delivery O2 Flow Rate FiO2 11/23/19 16:00 73 11/23/19 16:00 98.0 73 18 105/55 (72) 96 11/23/19 12:00 74 11/23/19 12:00 97.7 74 18 108/52 (70) 97 11/23/19 09:33 85 158/70 11/23/19 09:00 Nasal Cannula 3.0 11/23/19 08:00 97.5 88 20 158/70 (99) 98 11/23/19 08:00 88 11/23/19 04:00 97.7 60 18 154/65 (94) 99 11/23/19 00:00 65 11/23/19 00:00 98.1 77 19 104/55 (71) 100 11/22/19 21:00 70 101/66 11/22/19 21:00 Nasal Cannula 3.0 11/22/19 20:00 73 11/22/19 20:00 97.9 70 19 101/66 (78) 98 Intake and Output 11/22/19 11/23/19 19:00 07:00 Intake Total 550 ml 50 ml Balance 550 ml 50 ml Tube Feeding 550 ml 50 ml # Bowel Movements 1 Laboratory Tests Test 11/23/19 06:24 White Blood Count 14.5 K/UL (4.8-10.8) H Red Blood Count 3.20 M/UL (4.20-5.40) L Hemoglobin 10.2 G/DL (12.0-16.0) L Hematocrit 31.8 % (37.0-47.0) L Mean Corpuscular Volume 99 FL (80-99) Mean Corpuscular Hemoglobin 32.0 PG (27.0-31.0) H Mean Corpuscular Hemoglobin Concent 32.2 G/DL (32.0-36.0) Red Cell Distribution Width 14.3 % (11.6-14.8) Platelet Count 277 K/UL (150-450) Mean Platelet Volume 5.7 FL (6.5-10.1) L Neutrophils (%) (Auto) % (45.0-75.0) Lymphocytes (%) (Auto) % (20.0-45.0) Monocytes (%) (Auto) % (1.0-10.0) Eosinophils (%) (Auto) % (0.0-3.0) Basophils (%) (Auto) % (0.0-2.0) Differential Total Cells Counted 100 Neutrophils % (Manual) 88 % (45-75) H Lymphocytes % (Manual) 3 % (20-45) L Monocytes % (Manual) 7 % (1-10) Eosinophils % (Manual) 2 % (0-3) Basophils % (Manual) 0 % (0-2) Band Neutrophils 0 % (0-8) Platelet Estimate Adequate Platelet Morphology Normal Anisocytosis 1+ Sodium Level 139 MMOL/L (136-145) Potassium Level 4.5 MMOL/L (3.5-5.1) Chloride Level 103 MMOL/L (98-107) Carbon Dioxide Level 27 MMOL/L (21-32) Anion Gap 9 mmol/L (5-15) Blood Urea Nitrogen 24 mg/dL (7-18) H Creatinine 0.9 MG/DL (0.55-1.30) Estimat Glomerular Filtration Rate > 60 mL/min (>60) Glucose Level 105 MG/DL (74-106) Calcium Level 8.7 MG/DL (8.5-10.1) Objective HEAD AND NECK: No JVD. LUNGS: Clear. CARDIOVASCULAR: Irregular S1 and S2 with no gallop or murmur. ABDOMEN: Soft, status post G-tube. EXTREMITIES: Lower extremities had 1+ pitting edema. Tomás Negrete MD Nov 23, 2019 16:54
--- NOTE | 2019-11-23 18:52 | NUR ---
NURSE NOTES: Patient is discharged to [facility] via ambulance. manager monitoring removed, IV removed, no bleeding, no infiltration noted. Report given to Ada at the SNF. G-Tube flushed and clamped. All discharge protocols followed and carried out. Patient is in stable condition.
--- NOTE | 2019-11-23 22:14 | General Progress Note ---
Assessment/Plan Problem List: (1) Malfunction of gastrostomy tube ICD Codes: K94.23 - Gastrostomy malfunction SNOMED: 858022173 (2) Dehydration ICD Codes: E86.0 - Dehydration SNOMED: 78919089 (3) Hypotension ICD Codes: I95.9 - Hypotension, unspecified SNOMED: 22814974 (4) Anemia ICD Codes: D64.9 - Anemia, unspecified SNOMED: 933242782 (5) Hypothyroidism ICD Codes: E03.9 - Hypothyroidism, unspecified SNOMED: 83920524 Status: progressing Assessment/Plan: dc to snf cleared by id afebrile anemia psych pt reviewed chart and labs h/o covid in the past Subjective ROS Limited/Unobtainable: Yes Allergies: Coded Allergies: No Known Allergies (Unverified , 10/04/18) Objective Last 24 Hour Vital Signs Date Time Temp Pulse Resp B/P (MAP) Pulse Ox O2 Delivery O2 Flow Rate FiO2 11/23/19 16:00 73 11/23/19 16:00 98.0 73 18 105/55 (72) 96 11/23/19 12:00 74 11/23/19 12:00 97.7 74 18 108/52 (70) 97 11/23/19 09:33 85 158/70 11/23/19 09:00 Nasal Cannula 3.0 11/23/19 08:00 97.5 88 20 158/70 (99) 98 11/23/19 08:00 88 11/23/19 04:00 97.7 60 18 154/65 (94) 99 11/23/19 00:00 65 11/23/19 00:00 98.1 77 19 104/55 (71) 100 Intake and Output 11/22/19 11/23/19 19:00 07:00 Intake Total 550 ml 50 ml Balance 550 ml 50 ml Tube Feeding 550 ml 50 ml # Bowel Movements 1 Laboratory Tests 11/23/19 06:24: White Blood Count 14.5H, Red Blood Count 3.20L, Hemoglobin 10.2L, Hematocrit 31.8L, Mean Corpuscular Volume 99, Mean Corpuscular Hemoglobin 32.0H, Mean Corpuscular Hemoglobin Concent 32.2, Red Cell Distribution Width 14.3, Platelet Count 277, Mean Platelet Volume 5.7L, Neutrophils (%) (Auto) , Lymphocytes (%) ( Auto) , Monocytes (%) (Auto) , Eosinophils (%) (Auto) , Basophils (%) (Auto) , Differential Total Cells Counted 100, Neutrophils % (Manual) 88H, Lymphocytes % (Manual) 3L, Monocytes % (Manual) 7, Eosinophils % (Manual) 2, Basophils % ( Manual) 0, Band Neutrophils 0, Platelet Estimate Adequate, Platelet Morphology Normal, Anisocytosis 1+, Sodium Level 139, Potassium Level 4.5, Chloride Level 103, Carbon Dioxide Level 27, Anion Gap 9, Blood Urea Nitrogen 24H, Creatinine 0.9, Estimat Glomerular Filtration Rate > 60, Glucose Level 105, Calcium Level 8.7 Height (Feet): 5 Height (Inches): 4.00 Weight (Pounds): 154 Jose Woodard MD Nov 23, 2019 22:14
--- NOTE | 2019-11-23 23:13 | Psych Consult Progress Note ---
Psychiatry Progress Note Psychiatry Progress Note Neurological/Psychiatric: Reports: anxiety, depressed, emotional problems Allergies: Coded Allergies: No Known Allergies (Unverified , 10/04/18) Objective Data Height (Feet): 5 Height (Inches): 4.00 Weight (Pounds): 154 Additional Comments: alert, disoriented. Mood is agitated. Affect is flat. Thought process, there is a paucity of thought content. Thought content, no suicidal or homicidal ideation. Cognition is impaired. Insight and judgment is impaired. Assessment/Plan Problem List: (1) AMS (altered mental status) ICD Codes: R41.82 - Altered mental status, unspecified SNOMED: 322080159 Qualifiers: Qualified Codes: R41.0 - Disorientation, unspecified Status: unchanged Assessment/Plan: PLAN: 1. We will increase the Depakote to 500 mg b.i.d. 2. We will increase the risperidone to 125 mg b.i.d. 3. Haldol p.r.n. 4. Bilateral soft restraints. Jordan Valdes MD Nov 23, 2019 23:13
--- NOTE | 2019-11-24 11:07 | NUR ---
*-* INSURANCE *-* UPDATED CLINICALS ( NO D/C SUM IN THE SYSTEM) FAXED TO: LESLEY MOREL F: [phone] F: [phone]
--- NOTE | 2019-11-24 16:17 | Discharge Summary ---
Discharge Summary Discharge Summary _ DATE OF ADMISSION: 11/20/2019 DATE OF DISCHARGE: 11/23/2019 DISCHARGED BY: Dr Woodard REASON FOR ADMISSION: 74 years old female, resident of retirement facility, with past medical history of atrial fibrillation, pacemaker, hypertension, dysphagia, feeding by G -tube, diabetes mellitus, hypothyroidism, seizure disorder, dementia, was sent for evaluation due to increased drainage from G-tube site. Patient was previously tested positive for COVID-19. Upon evaluation patient was afebrile , pulse oximetry was 93% on 2 L of oxygen therapy via nasal cannula. Patient was hypotensive with blood pressure 98/65. Laboratory work-up revealed stable electrolytes and renal parameters. Glucose 86. Stable LFT. Troponin negative. Albumin 2.7. No leukocytosis, hemoglobin 9.9, hematocrit 29.8, platelet count 289. 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 Roberth Topete GI specialist Dr. Alvares social service liaison Dr. Womack sewer cleaner/oncologist Dr. Hoover psychiatrist Dr. Valdes [facility] COURSE: Patient admitted to monitored floor due to hypotension. Patient started on the IV fluids. Java Architect closely followed. Hemodynamic status was closely monitored. Patient started on midodrine. Anticoagulation with Xarelto along with low-dose of metoprolol for rate control continued. Blood pressure was closely monitored and remained stable , prior to discharge 105/55. Supplemental oxygen provided and titrated to keep pulse oximetry above 92%. Pulmonary toilet provided. Pulse oximetry remained stable on 3 L of oxygen via nasal cannula. TSH was within normal limits. Current dose of Synthroid continued. Cortisol level stable. Initially no leukocytosis , no fevers . Patient subsequently developed mild leukocytosis , however no evidence of infection, no fevers. ID specialist recommended to observe patient off antibiotics. Seizure precaution maintained. Depakote and Tegretol continued. No evidence of seizure activity while in the hospital. Renal parameters and electrolytes were closely monitored , electrolytes corrected as needed. With IV fluids renal parameters stabilized. GI specialist followed. G-tube site care provided. Patient was able to tolerate tube feeding. No residuals. G tube site care provided, continue at the facility. Stool for occult blood was negative. GI specialist recommended to hold GI procedure at this time. Hemoglobin and hematocrit remained at baseline , and prior to discharge hemoglobin 10.2, hematocrit 31.8. Psychiatric medication regimen optimized as per psychiatrist. Supportive care provided. Patient clinically stabilized and was ready for transfer to the retirement facility for continuation of care. FINAL DIAGNOSES: Malfunctioning of PEG Altered mental status Anemia Hypothyroidism Hypotension Dehydration Atrial fibrillation Pacemaker Seizure disorder Recent positive COVID DISCHARGE MEDICATIONS: List of medication was sent to accepting facility DISCHARGE INSTRUCTIONS: Patient was discharged to the retirement facility. Follow up with medical doctor at the facility. I have been assigned to dictate discharge summary for this account. I was not involved in the patient's management. Lisa Jose NP Nov 24, 2019 16:17
--- NOTE | 2019-11-25 15:49 | NUR ---
*-* INSURANCE *-* DISCHARGE SUMMARY HAS BEEN FAXED TO: LESLEY MOREL F: [phone] F: [phone]
== END 2019-11-23 19:05 | DRG 252 ==
LOC: EDBD 14:28 → EMR 16:04 → 4E 16:21 → EDBEDREQ 17:42 → 4E 18:11 → 2E 22:40
DX: K94.23 Gastrostomy malfunction (principal); Y83.3 Surgical operation with formation of external stoma as the cause of abnormal reaction of the patient, or of later complication, without mention of misadventure at the time of the procedure; L03.311 Cellulitis of abdominal wall; I95.9 Hypotension, unspecified; Z86.19 Personal history of other infectious and parasitic diseases; F09 Unspecified mental disorder due to known physiological condition; I48.91 Unspecified atrial fibrillation; R62.7 Adult failure to thrive; Z68.26 Body mass index [BMI] 26.0-26.9, adult; G40.909 Epilepsy, unspecified, not intractable, without status epilepticus; E03.9 Hypothyroidism, unspecified; E86.0 Dehydration; Z95.0 Presence of cardiac pacemaker; E11.9 Type 2 diabetes mellitus without complications; F03.90 Unspecified dementia, unspecified severity, without behavioral disturbance, psychotic disturbance, mood disturbance, and anxiety; D64.9 Anemia, unspecified; Z79.01 Long term (current) use of anticoagulants; Z79.82 Long term (current) use of aspirin; Z86.718 Personal history of other venous thrombosis and embolism; I11.0 Hypertensive heart disease with heart failure; I50.9 Heart failure, unspecified
CPT/HCPCS: 36415; 71045; 74018; 80048; 80053; 80164; 82270; 82533; 82607; 82728; 82746; 83540; 83550; 83735; 84100; 84443; 84484; 85007; 85025; 85610; 85730; 86140; 87081; 93306; 96361; 96365; 99285; J2405; J7030